=== PATIENT | female | born 1945 | race Caucasian/White ===

== ENCOUNTER 2016-10-14 07:57 | Inpatient (IN) | payer MEDICARE, OTHER ==
[~2016-10-14] VITALS: Ht 157.5 cm; Wt 72.0 kg
[2016-10-14] VITALS (12 sets, daily range): BP systolic 112–196; BP diastolic 56–88; PULSE 52–68; RESP 16–24; TEMP 97.5–98; O2SAT 96–99
[2016-10-14] MEDS ORDERED: CHLO4TAB PO (08:24)
[2016-10-14] MEDS ORDERED: FLAX1000 PO (08:24)
[2016-10-14] MEDS ORDERED: SOYCAP PO (08:24)
[2016-10-14] MEDS ORDERED: CHOL5000 PO (08:24)
[2016-10-14] MEDS ORDERED: ASPI81CH37 PO (08:24)
[2016-10-14] MEDS ORDERED: BLAC540C PO (08:24)
[2016-10-14] MEDS ORDERED: CO Q100C9 PO (08:24)
[2016-10-14] MEDS ORDERED: BIOT10TA PO (08:24)
[2016-10-14] MEDS ORDERED: FISH1200 PO (08:24)
[2016-10-14] MEDS ORDERED: GLUC1TAB16 PO (08:24)
[2016-10-14] MEDS ORDERED: IBUP400T20 PO (08:25)
[2016-10-14] MEDS: NITROGLYCERIN 0.4 MG SL 25 TABS/BTL SL SCH ×2 (08:29→08:45)
[2016-10-14] MEDS ORDERED: ASPIRIN 325 MG TAB PO ONE (08:30)
[2016-10-14 08:34] LABS: AUTOMATED NEUTROPHIL # 4.3 TH/MM3 (1.8-7.7); BASOPHIL # 0.1 TH/MM3 (0-0.2); EOSINOPHIL # 0.1 TH/MM3 (0-0.4); EOSINOPHIL % 1.5 % (0.0-4.0); HEMATOCRIT 43.6 % (35.0-46.0); HEMO FLAGS DIFF FINAL; LYMPH % 26.6 % (9.0-44.0); LYMPHOCYTE # 1.8 TH/MM3 (1.0-4.8); MEAN CELL VOLUME 95.4 FL (80.0-100.0); MEAN CORPUSCULAR HEMOGLOBIN 31.3 PG (27.0-34.0); MEAN CORPUSCULAR HGB CONC 32.8 % (32.0-36.0); MONO % 5.9 % (0.0-8.0); PLATELET COUNT 248 TH/MM3 (150-450); RED BLOOD COUNT 4.58 MIL/MM3 (4.00-5.30); RED CELL DISTRIBUTION WIDTH 12.9 % (11.6-17.2); WHITE BLOOD COUNT 6.6 TH/MM3 (4.0-11.0)
[2016-10-14 08:47] LABS: APTT (PATIENT) 23.6 SEC (24.3-30.1); INTERNATIONAL NORMALIZED RATIO 0.9 RATIO; PROTHROMBIN TIME - PATIENT 10.2 SEC (9.8-11.6)
[2016-10-14 08:51] LABS: ANION GAP 8 MEQ/L (5-15); AST (GOT) 22 U/L (15-37); BICARBONATE 27.2 MEQ/L (21.0-32.0); BLOOD UREA NITROGEN 14 MG/DL (7-18); CHLORIDE 104 MEQ/L (98-107); GLOMERULAR FILTRATION RATE 92 ML/MIN (>89); MAGNESIUM 1.8 MG/DL (1.5-2.5); POTASSIUM 3.9 MEQ/L (3.5-5.1); SODIUM (NA) 139 MEQ/L (136-145)
[2016-10-14 08:52] LABS: ALT (GPT) 27 U/L (10-53)
[2016-10-14 08:56] LABS: ALKALINE PHOSPHATASE 42 U/L (45-117); CREATINE KINASE 146 U/L (26-192); TOTAL BILIRUBIN ADULT 0.5 MG/DL (0.2-1.0)
--- NOTE | 2016-10-14 09:01 | PD ---
HPI Chief Complaint: Chest Pain Time Seen by Provider: 08:20 Travel History International Travel<30 days: No Contact w/Intl Traveler<30days: No Traveled to known affect area: No History of Present Illness HPI 70-year-old female states that in September she had chest pain for a couple of days. She went to her primary care physician and states she had an abnormal EKG. They referred her to Dr. Swanson for first evaluation but she has not been able to get in yet. She denies any routine hard testing in the past. She denies taking any aspirin yet today. She states that her chest pain started at 7 AM this morning. It feels like a pressure in the center and indigestion-like. She states she has not had any pain between her episode and September and now. She states no specific modifying factors. Besides the episode in September she denies prior history of this. Severity is moderate. She denies any other concurrent complaints. PFSH Past Medical History Respiratory: Yes Influenza Vaccination: Yes ?: Not Tubal Ligation: Yes Past Surgical History Other Surgery: Yes (DEVIATED SEPTUM / RT ROTATOR CUFF) Social History Alcohol Use: Yes (RARELY) Tobacco Use: No Substance Use: No Allergies-Medications (Allergen,Severity, Reaction): Coded Allergies: Sulfa (Verified Allergy, Unknown, 10/14/16) Uncoded Allergies: NICKEL (Allergy, Unknown, 10/14/16) Reported Meds & Prescriptions Reported Meds & Active Scripts Active Reported Ibuprofen 400 Mg Tab 400 Mg PO BID Vitamin D3 (Cholecalciferol) 5,000 Unit Cap 5,000 Units PO HS Soy Isoflavones (Soy Isoflavone) 100 Mg Cap 80 Mg PO DAILY Glucosamine Sulfate 1,000 Mg Tab 1,000 Mg PO BID Flaxseed Oil (Flaxseed (Linseed)) 1,000 Mg Cap 1,200 Mg PO HS Fish Oil 1200 mg (Taylor-3 Fatty Acids) 1 Cap Cap 1,200 Mg PO BID Co Q 10 (Coenzyme Q10 (Ubidecarenone)) 100 Mg Cap 200 Mg PO HS Chlortabs (Chlorpheniramine Maleate) 4 Mg Tablet 2 Mg PO DAILY Black Cohosh (Black Cohosh Extract) 40 Mg Cap 80 Mg PO DAILY Biotin 10 Mg Tab 10 Mg PO HS Aspirin Low Dose (Aspirin) 81 Mg Chew 81 Mg PO HS Review of Systems Except as stated in HPI: all other systems reviewed are Neg Physical Exam Narrative GENERAL: Well-nourished, well-developed patient. SKIN: Warm and dry. HEAD: Normocephalic and atraumatic. EYES: No injection or drainage. ENT: No nasal drainage noted. NECK: Supple, trachea midline. CARDIOVASCULAR: Regular rate and rhythm RESPIRATORY: Breath sounds equal bilaterally. No accessory muscle use. GASTROINTESTINAL: Abdomen soft, non-tender, nondistended. EXTREMITIES: No edema. NEUROLOGICAL: Awake and alert. Motor and sensory grossly within normal limits. Normal speech. Data Data Last Documented VS Vital Signs Date Time Temp Pulse Resp B/P Pulse Ox O2 Delivery O2 Flow Rate FiO2 10/14/16 09:59 53 18 146/66 99 Room Air 10/14/16 08:00 97.9 Orders Electrocardiogram (10/14/16 08:06) Ckmb (Isoenzyme) Profile (10/14/16 08:06) Complete Blood Count With Diff (10/14/16 08:06) Comprehensive Metabolic Panel (10/14/16 08:06) Magnesium (Mg) (10/14/16 08:06) Prothrombin Time / Inr (Pt) (10/14/16 08:06) Act Partial Throm Time (Ptt) (10/14/16 08:06) Troponin I (10/14/16 08:06) Chest, Single Ap (10/14/16 08:06) Ecg Monitoring (10/14/16 08:06) Bilateral Bp Monitoring (10/14/16 08:06) Iv Access Insert/Monitor (10/14/16 08:06) Oximetry (10/14/16 08:06) Aspirin (Aspirin) (10/14/16 08:30) Nitroglycerin Sl (Nitrostat Sl) (10/14/16 08:30) CKMB (10/14/16 08:15) CKMB% (10/14/16 08:15) D-Dimer (10/14/16 09:01) Morphine Inj (Morphine Inj) (10/14/16 09:45) Ondansetron Inj (Zofran Inj) (10/14/16 09:45) Admit Order (Ed Use Only) (10/14/16 10:25) Labs Laboratory Tests Test 10/14/16 08:15 White Blood Count 6.6 TH/MM3 Red Blood Count 4.58 MIL/MM3 Hemoglobin 14.3 GM/DL Hematocrit 43.6 % Mean Corpuscular Volume 95.4 FL Mean Corpuscular Hemoglobin 31.3 PG Mean Corpuscular Hemoglobin 32.8 % Concent Red Cell Distribution Width 12.9 % Platelet Count 248 TH/MM3 Mean Platelet Volume 7.5 FL Neutrophils (%) (Auto) 65.0 % Lymphocytes (%) (Auto) 26.6 % Monocytes (%) (Auto) 5.9 % Eosinophils (%) (Auto) 1.5 % Basophils (%) (Auto) 1.0 % Neutrophils # (Auto) 4.3 TH/MM3 Lymphocytes # (Auto) 1.8 TH/MM3 Monocytes # (Auto) 0.4 TH/MM3 Eosinophils # (Auto) 0.1 TH/MM3 Basophils # (Auto) 0.1 TH/MM3 CBC Comment DIFF FINAL Differential Comment Prothrombin Time 10.2 SEC Prothromb Time International 0.9 RATIO Ratio Activated Partial 23.6 SEC Thromboplast Time D-Dimer Quantitative (PE/DVT) 0.48 MG/L FEU Sodium Level 139 MEQ/L Potassium Level 3.9 MEQ/L Chloride Level 104 MEQ/L Carbon Dioxide Level 27.2 MEQ/L Anion Gap 8 MEQ/L Blood Urea Nitrogen 14 MG/DL Creatinine 0.64 MG/DL Estimat Glomerular Filtration 92 ML/MIN Rate Random Glucose 113 MG/DL Calcium Level 9.9 MG/DL Magnesium Level 1.8 MG/DL Total Bilirubin 0.5 MG/DL Aspartate Amino Transf 22 U/L (AST/SGOT) Alanine Aminotransferase 27 U/L (ALT/SGPT) Alkaline Phosphatase 42 U/L Total Creatine Kinase 146 U/L Creatine Kinase MB 4.5 NG/ML Troponin I 0.04 NG/ML Total Protein 6.9 GM/DL Albumin 3.7 GM/DL [facility] Medical Decision Making Medical Screen Exam Complete: Yes Emergency Medical Condition: Yes Medical Record Reviewed: Yes (past history confirmed) Interpretation(s) EKG is normal sinus rhythm at 60 with right bundle branch block, no STEMI criteria CBC & BMP Diagram 10/14/16 08:15 Last 24 hours Impressions Chest X-Ray 10/14/16 0806 Signed Impressions: Service Date/Time: Friday, October 14, 2016 08:44 - CONCLUSION: Normal examination. Moris Orourke MD Differential Diagnosis HI, musculoskeletal, pneumothorax, gastritis Narrative Course Will check blood work, chest x-ray and dose with aspirin and nitroglycerin and reevaluate ed workup with mild ckmb elevation, will discuss with cardiology and dose with morphine for further pain control pain about the same, agrees to admit Physician Communication Physician Communication dr polanco states to place in [facility] Diagnosis Primary Impression: Chest pain Qualified Code: R07.9 - Chest pain, unspecified type Saira Garcia MD Oct 14, 2016 09:01
--- NOTE | 2016-10-14 09:05 | RADRPT ---
EXAM DATE/TIME: 10/14/2016 08:44 [facility] COMPARISON: No previous studies available for comparison. INDICATIONS : Chest pain. MEDICAL HISTORY : None. SURGICAL HISTORY : None. ENCOUNTER: Initial ACUITY: 1 day PAIN SCORE: 10/10 LOCATION: middle chest. FINDINGS: A single view of the chest demonstrates the lungs to be symmetrically aerated without evidence of mas s, infiltrate or effusion. The cardiomediastinal contours are unremarkable. Osseous structures are intact. CONCLUSION: Normal examination. Moris Orourke MD on October 14, 2016 at 9:03 Board Certified Radiologist. This report was verified electronically.
[2016-10-14 09:08] LABS: CKMB 4.5 NG/ML (0.5-3.6)
[2016-10-14] MEDS ORDERED: MORPHINE SULFATE 8 MG/ML INJ IV PUSH ONE (09:45)
[2016-10-14] MEDS ORDERED: ONDANSETRON HCL 4 MG/2 ML VIAL IV PUSH ONE (09:45)
--- NOTE | 2016-10-14 11:45 | HHI.HP ---
HPI Primary Care Physician Mckayla Herman DO Past Family Social History Allergies: Coded Allergies: Sulfa (Verified Allergy, Unknown, 10/14/16) Uncoded Allergies: NICKEL (Allergy, Unknown, 10/14/16) Reported Medications Reported Meds & Active Scripts Active Reported Ibuprofen 400 Mg Tab 400 Mg PO BID Vitamin D3 (Cholecalciferol) 5,000 Unit Cap 5,000 Units PO HS Soy Isoflavones (Soy Isoflavone) 100 Mg Cap 80 Mg PO DAILY Glucosamine Sulfate 1,000 Mg Tab 1,000 Mg PO BID Flaxseed Oil (Flaxseed (Linseed)) 1,000 Mg Cap 1,200 Mg PO HS Fish Oil 1200 mg (Howell-3 Fatty Acids) 1 Cap Cap 1,200 Mg PO BID Co Q 10 (Coenzyme Q10 (Ubidecarenone)) 100 Mg Cap 200 Mg PO HS Chlortabs (Chlorpheniramine Maleate) 4 Mg Tablet 2 Mg PO DAILY Black Cohosh (Black Cohosh Extract) 40 Mg Cap 80 Mg PO DAILY Biotin 10 Mg Tab 10 Mg PO HS Aspirin Low Dose (Aspirin) 81 Mg Chew 81 Mg PO HS Physical Exam Vital Signs Vital Signs Date Time Temp Pulse Resp B/P Pulse Ox O2 Delivery O2 Flow Rate FiO2 10/14/16 09:59 53 18 146/66 99 Room Air 10/14/16 09:30 62 20 145/65 99 10/14/16 08:43 61 16 148/70 98 Room Air 10/14/16 08:18 68 24 196/88 99 Room Air 10/14/16 08:00 97.9 68 17 171/82 96 Laboratory Laboratory Tests Test 10/14/16 08:15 White Blood Count 6.6 Red Blood Count 4.58 Hemoglobin 14.3 Hematocrit 43.6 Mean Corpuscular Volume 95.4 Mean Corpuscular Hemoglobin 31.3 Mean Corpuscular Hemoglobin 32.8 Concent Red Cell Distribution Width 12.9 Platelet Count 248 Mean Platelet Volume 7.5 Neutrophils (%) (Auto) 65.0 Lymphocytes (%) (Auto) 26.6 Monocytes (%) (Auto) 5.9 Eosinophils (%) (Auto) 1.5 Basophils (%) (Auto) 1.0 Neutrophils # (Auto) 4.3 Lymphocytes # (Auto) 1.8 Monocytes # (Auto) 0.4 Eosinophils # (Auto) 0.1 Basophils # (Auto) 0.1 CBC Comment DIFF FINAL Differential Comment Prothrombin Time 10.2 Prothromb Time International 0.9 Ratio Activated Partial 23.6 Thromboplast Time D-Dimer Quantitative (PE/DVT) 0.48 Sodium Level 139 Potassium Level 3.9 Chloride Level 104 Carbon Dioxide Level 27.2 Anion Gap 8 Blood Urea Nitrogen 14 Creatinine 0.64 Estimat Glomerular Filtration 92 Rate Random Glucose 113 Calcium Level 9.9 Magnesium Level 1.8 Total Bilirubin 0.5 Aspartate Amino Transf 22 (AST/SGOT) Alanine Aminotransferase 27 (ALT/SGPT) Alkaline Phosphatase 42 Total Creatine Kinase 146 Creatine Kinase MB 4.5 Troponin I 0.04 Total Protein 6.9 Albumin 3.7 Result Diagram: 10/14/1681410/14/1615 Assessment and Plan Assessment and Plan PT SEEN WITH PA AND EXAMINED TOGETHER S: ATYPICAL CP, PROTRACTED NON RADIATING NOT ASSOCIATED WITH EXERTION OR REL BY REST HTN O: NECK BRUIT R RADIATING FROM STERNUM CHEST VERY TENDER UPPER CC JUNCTIONS CLEAR TO AP CV RSR WITH 2/6 S EJ M NO GR ABD NO MASSES NT LAB MINIMAL ELEVATION OF TROPONIN A: ATYPICAL CP BUT NEED TO RO WITH PROTOCOL FOLLOW TROPONIN P: PER PROTOCOL PROBABLY NUC STRESS OP FU WITH HER PCP WOULD REC OP ECTO Reagan Lees MD Oct 14, 2016 11:45
--- NOTE | 2016-10-14 11:50 | HHI.HP ---
[facility] Primary Care Physician Mckayla Herman DO Chief Complaint Chest pain History of Present Illness This is a 70-year-old female that presents to the ED via private vehicle with complaint of a central chest discomfort. She describes as someone squeezing a fast inside of her chest. This morning it woke her up about 7:00. She tried 3 times but did not change the symptoms. She was given 2 subluminal nitroglycerin in the ED which did not improve her symptoms. She is also given morphine which has not improved her symptoms. Currently discomfort is about a 7 out of 10. She had a similar episode on September 21, , and . It was constant. She thought was related to heartburn. She tried multiple over-the- counter antacids which did not help. She saw her primary care physician who performed an EKG and told her that it was abnormal and was referred her to a [facility]. She has not received a cardiology appointment yet. Denies associated shortness of breath, nausea, or diaphoresis. She found nothing to worsen the symptoms when she has had them. Denies recent illnesses. Denies fevers or chills. Cannot recall any recent stress testing. Review of Systems General: Patient denies fevers, chills recent, and recent travel HEENT: Patient denies headache, sore throat, difficulty swallowing. Cardiovascular: Has the chest discomfort as mentioned above. Denies sensation of heart beating rapidly or irregularly. No syncope. Denies diaphoresis. Respiratory: Denies shortness of breath or inspirational chest discomfort. Denies coughing wheezing or hemoptysis. GI: Patient denies nausea, vomiting, diarrhea, abdominal pain, bloody stools. Musculoskeletal: Patient denies joint pain or edema. Denies calf pain or edema. Neurovascular: Patient denies numbness, tingling, weakness in extremities. Denies headache. Endocrine: Denies polyuria and polydipsia. Hematologic: Denies easy bruising. Skin: Denies rash or itching. Past Family Social History Allergies: Coded Allergies: Sulfa (Verified Allergy, Unknown, 10/14/16) Uncoded Allergies: NICKEL (Allergy, Unknown, 10/14/16) Past Medical History Hyperlipidemia and she states that she takes Crestor for that. Denies hypertension, diabetes, and CAD. She has chronic back pain and follows a chiropractor for that. Past Surgical History Tubal ligation, deviated septum, right rotator cuff repair. Reported Medications Reported Meds & Active Scripts Active Reported Ibuprofen 400 Mg Tab 400 Mg PO BID Vitamin D3 (Cholecalciferol) 5,000 Unit Cap 5,000 Units PO HS Soy Isoflavones (Soy Isoflavone) 100 Mg Cap 80 Mg PO DAILY Glucosamine Sulfate 1,000 Mg Tab 1,000 Mg PO BID Flaxseed Oil (Flaxseed (Linseed)) 1,000 Mg Cap 1,200 Mg PO HS Fish Oil 1200 mg (Woodruff-3 Fatty Acids) 1 Cap Cap 1,200 Mg PO BID Co Q 10 (Coenzyme Q10 (Ubidecarenone)) 100 Mg Cap 200 Mg PO HS Chlortabs (Chlorpheniramine Maleate) 4 Mg Tablet 2 Mg PO DAILY Black Cohosh (Black Cohosh Extract) 40 Mg Cap 80 Mg PO DAILY Biotin 10 Mg Tab 10 Mg PO HS Aspirin Low Dose (Aspirin) 81 Mg Chew 81 Mg PO HS Family History Denies family history of CAD. Social History Patient quit smoking in 1988. Rarely has alcohol. Denies illicit drugs. Physical Exam Vital Signs Vital Signs Date Time Temp Pulse Resp B/P Pulse Ox O2 Delivery O2 Flow Rate FiO2 10/14/16 09:59 53 18 146/66 99 Room Air 10/14/16 09:30 62 20 145/65 99 10/14/16 08:43 61 16 148/70 98 Room Air 10/14/16 08:18 68 24 196/88 99 Room Air 10/14/16 08:00 97.9 68 17 171/82 96 Physical Exam GENERAL: This is a well-nourished, well-developed patient, in no apparent distress. Patient speaks in clear complete sentences. Patient is pleasant. HEENT: Head is atraumatic and normocephalic. Neck is supple without lymphadenopathy and trachea is midline. No JVD or carotid bruits. CARDIOVASCULAR: Grade 3 systolic murmur heard left sternal border and right sternal border. It does not radiate to the neck. Regular rate and rhythm without gallops or rubs. RESPIRATORY: Clear to auscultation. Breath sounds equal bilaterally. No wheezes , rales, or rhonchi. Chest wall is nontender. No use of accessory muscles. GASTROINTESTINAL: Abdomen is nontender, nondistended. Abdomen soft. No obvious pulsatile mass or bruit. No CVA tenderness. Strong femoral pulses bilaterally. Normal bowel sounds in all quadrants. MUSCULOSKELETAL: Patient is moving upper and lower extremities freely. No calf tenderness or edema, no Homans sign. Strong pulses in upper and lower extremities. NEUROLOGICAL: Patient is alert and oriented. Cranial nerves 2-12 are grossly intact. No focal deficits and speech is clear. SKIN: No rash and turgor is normal. Laboratory Laboratory Tests Test 10/14/16 08:15 White Blood Count 6.6 Red Blood Count 4.58 Hemoglobin 14.3 Hematocrit 43.6 Mean Corpuscular Volume 95.4 Mean Corpuscular Hemoglobin 31.3 Mean Corpuscular Hemoglobin 32.8 Concent Red Cell Distribution Width 12.9 Platelet Count 248 Mean Platelet Volume 7.5 Neutrophils (%) (Auto) 65.0 Lymphocytes (%) (Auto) 26.6 Monocytes (%) (Auto) 5.9 Eosinophils (%) (Auto) 1.5 Basophils (%) (Auto) 1.0 Neutrophils # (Auto) 4.3 Lymphocytes # (Auto) 1.8 Monocytes # (Auto) 0.4 Eosinophils # (Auto) 0.1 Basophils # (Auto) 0.1 CBC Comment DIFF FINAL Differential Comment Prothrombin Time 10.2 Prothromb Time International 0.9 Ratio Activated Partial 23.6 Thromboplast Time D-Dimer Quantitative (PE/DVT) 0.48 Sodium Level 139 Potassium Level 3.9 Chloride Level 104 Carbon Dioxide Level 27.2 Anion Gap 8 Blood Urea Nitrogen 14 Creatinine 0.64 Estimat Glomerular Filtration 92 Rate Random Glucose 113 Calcium Level 9.9 Magnesium Level 1.8 Total Bilirubin 0.5 Aspartate Amino Transf 22 (AST/SGOT) Alanine Aminotransferase 27 (ALT/SGPT) Alkaline Phosphatase 42 Total Creatine Kinase 146 Creatine Kinase MB 4.5 Troponin I 0.04 Total Protein 6.9 Albumin 3.7 Result Diagram: 10/14/1681410/14/16814 Imaging Last 24 hours Impressions Chest X-Ray 10/14/16805 Signed Impressions: Service Date/Time: Friday, October 14, 2016 08:44 - CONCLUSION: Normal examination. Moris Orourke MD Course EKGs have sinus rhythm to sinus bradycardia with right bundle branch block. Assessment and Plan Assessment and Plan * Chest pain: Patient will continue to have serial cardiac enzymes and EKGs for ruling out purposes. She has been seen by Dr. Lees of cardiology in the chest pain center. She had caffeinated beverages morning cannot be stress tested today. She will have a Lexiscan in the morning if she does rule out. She'll be discharged home if the stress test was nonischemic. Patient does have a murmur and will need to have outpatient follow-up for an echo. * Hyperlipidemia: Patient is to continue her current medication. Patient is stable at this time. She is agreeable to this plan. Kar Easton Oct 14, 2016 11:50
[2016-10-14] MEDS ORDERED: SODIUM CHLORIDE 0.9% FLUSH 5 ML FLUSH IVF PRN (12:00)
[2016-10-14] MEDS ORDERED: LIDOCAINE VISCOUS 2% SOLN 15 ML UDC PO ONE (12:00)
[2016-10-14] MEDS ORDERED: ONDANSETRON HCL 4 MG/2 ML VIAL IV PRN (12:00)
[2016-10-14] MEDS ORDERED: ALUMINUM/MAGNESIUM/SIMETH 30 ML CUP PO ONE (12:00)
[2016-10-14] MEDS ORDERED: ALPRAZolam 0.25 MG TAB PO PRN (12:00)
[2016-10-14] MEDS ORDERED: ACETAMINOPHEN 500 MG CPLT PO PRN (12:00)
--- NOTE | 2016-10-14 12:24 | EKG ---
Date Performed: 10/14/2016 Time Performed: 08:11:01 PTAGE: 70 years EKG: Sinus rhythm RIGHT BUNDLE BRANCH BLOCK ABNORMAL ECG NO PREVIOUS TRACING DOCTOR: Reagan Lees Interpretating Date/Time 10/14/2016 12:22:44
[2016-10-14] MEDS ORDERED: ATROPINE/SCOPOLAM/HYOSCYAM/PB ELIXIR 10 ML CUP PO ONE (13:00)
[2016-10-14] MEDS: PANTOPRAZOLE SOD 40 MG DELAYED RELEASE TAB PO SCH (13:21)
[2016-10-14] MEDS ORDERED: ROSU5 PO (13:31)
[2016-10-14 14:44] LABS: CREATINE KINASE 109 U/L (26-192)
[2016-10-14] MEDS ORDERED: cloNIDine HCL 0.1 MG TAB PO PRN (14:45)
[2016-10-14 15:03] LABS: CKMB 3.7 NG/ML (0.5-3.6)
[2016-10-14] MEDS: ACETAMINOPHEN/HYDROcodone 325 MG/7.5 MG TAB PO PRN (18:55)
[2016-10-14] MEDS: ATORVASTATIN 10 MG TAB PO SCH (20:57)
[2016-10-14] MEDS: SODIUM CHLORIDE 0.9% FLUSH 5 ML FLUSH IVF SCH (20:58)
[2016-10-15] VITALS (17 sets, daily range): BP systolic 115–147; BP diastolic 49–64; PULSE 49–97; RESP 16–18; TEMP 97.5–98.7; O2SAT 95–99
[2016-10-15] MEDS: ASPIRIN 325 MG TAB PO SCH (07:33)
[2016-10-15] MEDS: SODIUM CHLORIDE 0.9% FLUSH 5 ML FLUSH IVF SCH ×2 (07:33→21:00)
[2016-10-15] MEDS: PANTOPRAZOLE SOD 40 MG DELAYED RELEASE TAB PO SCH (07:33)
[2016-10-15] MEDS ORDERED: REGADENOSON INJ 0.4 MG/5 ML SYR ONE (09:43)
--- NOTE | 2016-10-15 11:36 | RADRPT ---
EXAM DATE/TIME: 10/15/2016 09:17 [facility] COMPARISON: No previous studies available for comparison. INDICATIONS : Mid chest pain for one day. Angina. DOSE: 26.6 mCi Tc99m Myoview at stress. 8.7 mCi Tc99m Myoview at rest. 0.4 mg Lexiscan STRESS SYMPTOMS: Nausea. EJECTION FRACTION: 63% MEDICAL HISTORY : Hypercholesterolemia. SURGICAL HISTORY : Tubal ligation. ENCOUNTER: Initial ACUITY: 1 day PAIN SCALE: 7/10 LOCATION: Midsternal chest TECHNIQUE: The patient underwent pharmacologic stress with infusion of prescribed dose. Continuous ECG tracing was monitored during stress. Gated SPECT imaging was performed after stress and conventional SPECT i maging was performed at rest. The examination was performed on a SPECT/CT scanner, both attenuation and non-corrected datasets were reviewed. FINDINGS: DISTRIBUTION: The maximum perfused segment at stress is in the anterior septal wall. PERFUSION STUDY: On the stress images there is decreased perfusion down anterior amount in the apex with what appears to be much better perfusion at rest suggesting ischemia in the LAD distribution. GATED STUDY: There is intact wall motion and thickening without hypokinetic or dyskinetic segments. CONCLUSION: There does appear to be much better perfusion at rest and stress in the anterior wall in the LAD dist ribution on at least 4 consecutive images raise possibility of LAD ischemia. RISK CATEGORY: Low (<1% Annual Mortality Rate) Moris Orourke MD on October 15, 2016 at 11:33 Board Certified Radiologist. This report was verified electronically.
--- NOTE | 2016-10-15 12:11 | EKG ---
Date Performed: 10/14/2016 Time Performed: 17:09:24 PTAGE: 70 years EKG: SINUS BRADYCARDIA RIGHT BUNDLE BRANCH BLOCK ABNORMAL ECG PREVIOUS TRACING : 10/14/2016 14.21 DOCTOR: Reagan Lees Interpretating Date/Time 10/15/2016 12:09:31
--- NOTE | 2016-10-15 12:12 | EKG ---
Date Performed: 10/14/2016 Time Performed: 14:21:20 PTAGE: 70 years EKG: SINUS BRADYCARDIA RIGHT BUNDLE BRANCH BLOCK ABNORMAL ECG PREVIOUS TRACING : 10/14/2016 11.04 DOCTOR: Reagan Lees Interpretating Date/Time 10/15/2016 12:09:52
--- NOTE | 2016-10-15 12:13 | EKG ---
Date Performed: 10/14/2016 Time Performed: 11:04:38 PTAGE: 70 years EKG: SINUS BRADYCARDIA RIGHT BUNDLE BRANCH BLOCK ABNORMAL ECG NO PREVIOUS TRACING DOCTOR: Reagan Lees Interpretating Date/Time 10/15/2016 12:10:20
--- NOTE | 2016-10-15 12:18 | TR ---
Date Performed: 10/15/2016 Time Performed: 09:53:42 DOCTOR: Reagan Lees DRUG LIST: CLINICAL HISTORY: ANGINA REASON FOR TEST: Angina REASON FOR ENDING: OBSERVATION: CONCLUSION: Lexiscan stress test was performed under standard four minute protocol. Radionuclide was injected one minute prior to ending the test. Resting ECG demonstrated RBBB. However no electro cardiographic abormalities were present to suggest ischemia. Nuclear imaging and interpretation are p ending. COMMENTS: Nuc scanning is reported as suspicious for ischemia.
--- NOTE | 2016-10-15 13:30 | HHI.PR ---
Subjective Remarks Follow up for chest pain. The patient was transferred from [facility] to hospitalists for abnormal nuclear stress test. Briefly, the patient came into the hospital with complaints of substernal chest pain without radiation, described as squeezing pains. She thought the pain was related to heartburn therefore took antacids which did not relieve the pain. Yesterday morning the pain awoke her from her sleep at 7am prompting her to come to the hospital. Since being here, the patient's chest pain has subsided slightly however still has constant chest discomfort. Cardiology consult has been placed for likely cardiac catheterization. Of note, patient was at her PCP's office on 10/12, was noted to have an "abnormal" EKG (no previous EKG to compare) therefore Dr. Herman referred her to software engineer kernel Dr. Swanson with [facility] however the patient has not yet established an appointment. Objective Vitals Vital Signs Date Time Temp Pulse Resp B/P Pulse Ox O2 Delivery O2 Flow Rate FiO2 10/15/16 11:43 97.8 60 18 119/64 97 10/15/16 08:03 97.9 60 16 133/63 99 10/15/16 08:00 60 10/15/16 07:19 99 21 10/15/16 05:22 97.8 60 18 115/59 97 10/15/16 04:08 54 10/15/16 00:02 97.5 52 16 117/56 98 10/15/16 00:00 54 10/14/16 20:39 97.8 54 17 124/56 96 10/14/16 20:00 60 10/14/16 19:55 97 10/14/16 16:13 59 10/14/16 15:09 98.0 55 16 112/56 96 10/14/16 14:00 60 Result Diagram: 10/14/16 0815 10/14/16 0815 Imaging Last Impressions Myocardial Perfusion Scan Nuc Med 10/15/16 0000 Signed Impressions: Service Date/Time: Saturday, October 15, 2016 09:17 - CONCLUSION: There does appear to be much better perfusion at rest and stress in the anterior wall in the LAD distribution on at least 4 consecutive images raise possibility of LAD ischemia. RISK CATEGORY: Low (<1%% Annual Mortality Rate) Moris Orourke MD Chest X-Ray 10/14/16805 Signed Impressions: Service Date/Time: Friday, October 14, 2016 08:44 - CONCLUSION: Normal examination. Moris Orourke MD Objective Remarks GENERAL: Well-nourished, well-developed pleasant female patient in NAD. SKIN: Warm and dry. No rash. HEENT: Normocephalic. Atraumatic.Pupils equal and round. Mucous membranes pink and moist. NECK: Supple. Trachea midline. CARDIOVASCULAR: Regular rate and rhythm. S1, S2 noted. No murmur appreciated. RESPIRATORY: No accessory muscle use. Clear to auscultation. Breath sounds equal bilaterally. GASTROINTESTINAL: Abdomen soft, non-tender, nondistended. Normoactive bowel sounds x4. MUSCULOSKELETAL: No obvious deformities. Extremities without clubbing, cyanosis , or edema. NEUROLOGICAL: Awake and alert. No obvious cranial nerve deficits. Motor grossly within normal limits. Normal speech. PSYCHIATRIC: Appropriate mood and affect; insight and judgment normal. Medications and IVs Current Medications Medications (Trade) Dose Ordered Sig/Leonardo Route Start Time Stop Time Status Last Admin (Protonix) 40 mg DAILY PO 10/14/16 12:00 10/15/16 07:33 (NS Flush) 2 ml UNSCH PRN IVF 10/14/16 12:00 (NS Flush) 2 ml BID IVF 10/14/16 21:00 10/15/16 07:33 (Tylenol) 500 mg Q4H PRN PO 10/14/16 12:00 (Stephen 7.5-325 Mg) 1 tab Q4H PRN PO 10/14/16 12:00 10/14/16 18:55 (Zofran Inj) 4 mg Q6H PRN IV 10/14/16 12:00 (Xanax) 0.25 mg Q8H PRN PO 10/14/16 12:00 (Lipitor) 10 mg HS PO 10/14/16 21:00 10/14/16 20:57 (Aspirin) 325 mg DAILY PO 10/15/16 09:00 10/15/16 07:33 (Catapres) 0.1 mg Q4H PRN PO 10/14/16 14:45 (Lopressor) 12.5 mg Q12HR PO 10/15/16 15:00 10/15/16 15:46 (Imdur) 30 mg DAILY@07 PO 10/16/16 07:00 (Pill Splitter) 1 ea UNSCH PRN OTHER 10/15/16 15:15 A/P Problem List: (1) Chest pain ICD Code: R07.9 Status: Acute Assessment and Plan 70-year-old female with no significant past medical history presents with chest pain Chest Pain: Initially admitted to [facility], ACS ruled out with negative serial cardiac enzymes x4 and EKG without acute ischemic changes, does show RBBB. Nuclear stress test abnormal, showed concern for possible LAD ischemic. Patient transferred to hospitalist. -Cardiology consulted, plans for heart catheterization tomorrow 10/16, NPO after midnight -Continue aspirin and statin -Started on low dose BB with metoprolol 12.5mg bid however caution with bradycardia -Also started on Imdur 30mg daily -check lipid panel and HgbA1c -monitor on telemetry Hypertension: no hx of hypertension, not on meds, and patient reports she checks her BP at home with systolic in the 120s consistently; possibly BP elevation secondary to pain vs whitecoat hypertension -started on metoprolol for now -monitor BP, add antihypertensives as needed -much better controlled torday DVT Prophylaxis: teds/SCDs Problem Qualifiers (1) Chest pain: Qualified Code: R07.9 - Chest pain, unspecified type Steff Alexander PA-C Oct 15, 2016 1:30 pm
[2016-10-15] MEDS ORDERED: PILL SPLITTER OTHER PRN (15:15)
[2016-10-15] MEDS: METOPROLOL TARTRATE 25 MG TAB PO SCH ×2 (15:46→21:00)
--- NOTE | 2016-10-15 16:09 | MB ---
cc: MARCI BRUCE MD DATE OF CONSULTATION 10/15/2016 REASON FOR CONSULTATION Chest pain with abnormal stress test. HISTORY OF PRESENT ILLNESS The patient is a 70-year-old woman with no prior coronary disease or cardiac history who presented with several episodes of chest discomfort. After the first episode she went to her primary care physician and at that time she was told her EKG was abnormal. She was supposed to have an outpatient appointment with Dr. Swanson but before then developed more chest discomfort and thus presented to the emergency department. She initially ruled out for ME and then had a nuclear stress test which was somewhat abnormal and thus I was consulted. She has had intermittent chest discomfort while she has been here, not particularly relieved by either nitrates or opiates. She describes very mild chest discomfort currently though she says significantly improved from her admission chest pain. No shortness breath, lightheadedness, dizziness, syncope. PAST MEDICAL HISTORY Hyperlipidemia. CURRENT MEDICATIONS Lipitor 10 mg q.h.s. ALLERGIES NICKEL, SULFA. PHYSICAL EXAMINATION VITAL SIGNS: Afebrile, pulse 60, respiratory rate 18, blood pressure 119/64, sating 97% on 2 liters. GENERAL: Pleasant, well-appearing woman in no distress. NECK: No JVD. LUNGS: Clear to auscultation bilaterally. CARDIOVASCULAR: Heart regular rate and rhythm. No murmurs appreciated. ABDOMEN: Benign. EXTREMITIES: No edema. LABORATORY DATA Cardiac enzymes are negative x3. Sodium 139, potassium 3.9, chloride 104, bicarb 27.2, BUN 14, creatinine 0.64, glucose 113. INR is 0.9. White count 6.6, hematocrit 43.6, platelets 248. EKG shows sinus bradycardia at 51 with right bundle-branch block. IMPRESSION Chest pain. The patient's chest discomfort is not particularly typical but she has now had several episodes including ongoing chest pain here. I will add metoprolol and Imdur for antianginal medications. Given her abnormal stress test, I think a cardiac catheterization is reasonable and this is what the patient wishes to do. The risks and benefits of the procedure were explained to the patient and I will ask my colleague to perform this tomorrow. Further recommendations will be based on her heart catheterization. Thank you again for the opportunity to participate in this patient's care. MD BERNARD Perez /2:56 PM /4:02 PM
[2016-10-15] MEDS: ATORVASTATIN 10 MG TAB PO SCH (22:42)
[2016-10-16] VITALS (27 sets, daily range): BP systolic 112–147; BP diastolic 49–83; PULSE 49–68; RESP 16–18; TEMP 97.9–98.4; O2SAT 96–98
[2016-10-16] MEDS: ISOSORBIDE MONONITRATE 30 MG TAB PO SCH (06:50)
[2016-10-16 07:03] LABS: BICARBONATE 29.6 MEQ/L (21.0-32.0); POTASSIUM 4.1 MEQ/L (3.5-5.1)
[2016-10-16 07:06] LABS: HDL CHOLESTEROL 74.1 MG/DL (40.0-60.0)
[2016-10-16] MEDS: SODIUM CHLORIDE 0.9% FLUSH 5 ML FLUSH IVF SCH ×2 (09:00→21:00)
[2016-10-16] MEDS: PANTOPRAZOLE SOD 40 MG DELAYED RELEASE TAB PO SCH (09:30)
[2016-10-16] MEDS: METOPROLOL TARTRATE 25 MG TAB PO SCH ×2 (09:31→21:24)
[2016-10-16] MEDS: ASPIRIN 325 MG TAB PO SCH (09:31)
--- NOTE | 2016-10-16 10:06 | HHI.PR ---
Subjective Remarks The patient said she had 9 out of 10 chest pain yesterday. She said it was in the center of her chest and seemed to radiate to the right side of her chest. She said no pain medication worked. She went to sleep and woke up and the pain was gone. She was anticipating cardiac catheterization. She says she thought her chest pain was related to GERD. She said she does have chest pain when she takes in a deep breath. Objective Vitals Vital Signs Date Time Temp Pulse Resp B/P Pulse Ox O2 Delivery O2 Flow Rate FiO2 10/16/16 09:56 96 10/16/16 08:00 62 10/16/16 07:00 62 10/16/16 07:00 98.3 62 18 112/66 97 10/16/16 06:00 58 10/16/16 05:00 54 10/16/16 04:00 52 10/16/16 03:59 98.1 54 16 147/63 96 10/16/16 03:00 50 10/16/16 02:00 52 10/16/16 01:00 53 10/16/16 00:05 97.9 51 16 123/83 96 10/16/16 00:00 52 10/15/16 23:00 58 10/15/16 22:58 96 21 10/15/16 22:00 50 10/15/16 21:00 58 10/15/16 20:09 97.9 49 16 125/49 95 10/15/16 20:00 58 10/15/16 19:00 62 10/15/16 17:45 98.4 97 18 147/64 97 10/15/16 15:20 98.7 64 16 122/58 96 10/15/16 11:43 97.8 60 18 119/64 97 I/O 10/15/16 10/15/16 10/15/16 10/16/16 10/16/16 10/16/16 07:00 15:00 23:00 07:00 15:00 23:00 Intake Total 250 ml Output Total 400 ml Balance -150 ml Intake Oral 250 ml Output Urine Total 400 ml # Voids 2 Result Diagram: 10/14/16 0815 10/16/16 0607 Imaging Last Impressions Myocardial Perfusion Scan Nuc Med 10/15/16 0000 Signed Impressions: Service Date/Time: Saturday, October 15, 2016 09:17 - CONCLUSION: There does appear to be much better perfusion at rest and stress in the anterior wall in the LAD distribution on at least 4 consecutive images raise possibility of LAD ischemia. RISK CATEGORY: Low (<1%% Annual Mortality Rate) Moris Orourke MD Chest X-Ray 10/14/16 0806 Signed Impressions: Service Date/Time: Friday, October 14, 2016 08:44 - CONCLUSION: Normal examination. Moris Orourke MD Objective Remarks GENERAL: Well-nourished, well-developed pleasant female patient in NAD. SKIN: Warm and dry. No rash. HEENT: Normocephalic. Atraumatic.Pupils equal and round. Mucous membranes pink and moist. NECK: Supple. Trachea midline. CARDIOVASCULAR: Regular rate and rhythm. S1, S2 noted. Grade 2 murmur appreciated. RESPIRATORY: No accessory muscle use. Clear to auscultation. Breath sounds equal bilaterally. GASTROINTESTINAL: Abdomen soft, non-tender, nondistended. Normoactive bowel sounds x4. MUSCULOSKELETAL: No obvious deformities. Extremities without clubbing, cyanosis , or edema. No reproducible chest pain to palpation. NEUROLOGICAL: Awake and alert. No obvious cranial nerve deficits. Motor grossly within normal limits. Normal speech. PSYCHIATRIC: Appropriate mood and affect; insight and judgment normal. Medications and IVs Current Medications Medications (Trade) Dose Ordered Sig/Leonardo Route Start Time Stop Time Status Last Admin (Protonix) 40 mg DAILY PO 10/14/16 12:00 10/16/16 09:30 (NS Flush) 2 ml UNSCH PRN IVF 10/14/16 12:00 (NS Flush) 2 ml BID IVF 10/14/16 21:00 10/15/16 21:00 (Tylenol) 500 mg Q4H PRN PO 10/14/16 12:00 (Raymond 7.5-325 Mg) 1 tab Q4H PRN PO 10/14/16 12:00 10/14/16 18:55 (Zofran Inj) 4 mg Q6H PRN IV 10/14/16 12:00 (Xanax) 0.25 mg Q8H PRN PO 10/14/16 12:00 (Lipitor) 10 mg HS PO 10/14/16 21:00 10/15/16 22:42 (Aspirin) 325 mg DAILY PO 10/15/16 09:00 10/16/16 09:31 (Catapres) 0.1 mg Q4H PRN PO 10/14/16 14:45 (Lopressor) 12.5 mg Q12HR PO 10/15/16 15:00 10/16/16 09:31 (Imdur) 30 mg DAILY@07 PO 10/16/16 07:00 10/16/16 06:50 (Pill Splitter) 1 ea UNSCH PRN OTHER 10/15/16 15:15 A/P Problem List: (1) Chest pain ICD Code: R07.9 Status: Acute Assessment and Plan Chest pain Initially admitted to [facility], ACS ruled out with negative serial cardiac enzymes x4 and EKG without acute ischemic changes, does show RBBB. Nuclear stress test abnormal, showed concern for possible LAD ischemic. Patient transferred to hospitalist. Cardiology consult appreciated. LDL 93. ? GI component. - catheterization appreciated. - Continue aspirin and statin. - Started on low dose BB with metoprolol 12.5mg bid however caution with bradycardia. - continue Imdur 30mg daily. - check HgbA1c. - monitor on telemetry. - continue PPI. Check a lipase level. Hypertension No hx of hypertension, not on meds, and patient reports she checks her BP at home with systolic in the 120s consistently; possibly BP elevation secondary to pain vs whitecoat hypertension. Well controlled at this time. - started on metoprolol for now. DVT Prophylaxis: teds/SCDs Discharge Planning Awaiting cath Problem Qualifiers (1) Chest pain: Qualified Code: R07.9 - Chest pain, unspecified type Britton Craven DO Oct 16, 2016 10:06
[2016-10-16] MEDS ORDERED: HEPARIN-NS/PF INJ 500 ML ONE (15:34)
[2016-10-16] MEDS ORDERED: NITROGLYCERIN INJ 5 ML ONE (15:35)
[2016-10-16] MEDS ORDERED: VERAPAMIL HCL 5 MG/2 ML VIAL ONE (15:35)
[2016-10-16] MEDS ORDERED: HEPARIN SODIUM - IV 10,000 UNITS/10 ML VIAL ONE (15:35)
[2016-10-16] MEDS ORDERED: MIDAZOLAM HCL 2 MG/2 ML VIAL ONE (15:35)
[2016-10-16] MEDS ORDERED: IOHEXOL 350 MG/ML 50 ML BTL (for Cath Lab) OTHER ONE (15:44)
[2016-10-16 16:25] LABS: HEMOGLOBIN A1a 1.5 %; HEMOGLOBIN A1b 0.8 %; HEMOGLOBIN Ao 84.9 %; HEMOGLOBIN F 1.7 %; HEMOGLOBIN LA1C 1.5 %; HEMOGLOBIN P3 3.5 %
--- NOTE | 2016-10-16 17:05 | CATHPROC ---
[facility] HIS Report Study Information Study Number Admission Scheduled Start Study Start [id number] Oct 14 2016 10:26AM 10/15/2016 Oct 16 2016 3:40PM [place] Service Cardiac Catheterization Admit Source Facility Department Emergency department [facility] - [employer] Physician and Clinical Staff Initial Deyvi Arriaza Throw Out Clerk Merlyn Barbour RN Throw Out Clerk Perla Long BSRN Recorder Varsha Blue,(R) (BS) Recorder Tommy Koo RCIS(BS) Scrub Rajeev Carter RCIS(BS) Procedures Performed Procedure Location (Site) Vessel Name Coronary Angiograms LCA Left Coronary Coronary Angiograms RCA Right Coronary L Heart Cath Wire insertion Radial (right) Radial Art. Equipment Time Leno Sewer Description Size Mfg Part Number Used/Scraped TRANSDUCER, TRUWAVE [id number] 15:58 GLYNN BARBOUR * Used W/DEVONCK *[id number] *[id number] *[id number] WIRE, HYDROSTEER 150CM [id number] 16:22 DAIG/[employer] 150CM Used ANGLED GLIDE *[id number] 15:58 [employer] PACK, CCL CUSTOM * Used *[id number] 15:58 [employer] SUPPORT, ARTERIAL ADULT [id number] Used BAND, RADIAL COMPRESSION TR [id number] 16:51 [employer] MEDICAL 24CM Used SHORT 24 *[id number] 15:58 [employer] WIRE, EXCHANGE 260CM 3MMJ 260CM Used *[id number] 15:58 NAMIC MANIFOLD, 4 PORT * Used *[id number] 15:58 [employer]COMED OMNIPAQUE, 350 MG, 150ML 150ML [id number] Used [id number] 15:58 [employer]ONNE[employer] BLANKET,WARM AIR CCL * Used *[id number] SHEATH, FR6 TRANSRADIAL 15:58 [employer]Star FR 6 [id number] Used SLENDER 10CM Equipment Model, Serial, Lot Number and Expiration Data Description Model Number Serial Number Lot Number Expiration Date WIRE, HYDROSTEER 150CM [id number] 06-07-2019 ANGLED GLIDE History: Current Medications Medication Dosage/Unit Route Frequency Last Date/Time Taken Beta Kenton ASA Statins (any) History: Allergies Allergy Reaction Sulfa NICKEL History: Risk Factors Family History of Hypertension Dyslipidemia Previous NE Previous Heart Failure Premature CAD No Yes Yes No No Prior Valve Prior PCI Prior CABG Surgery No No No Cerebrovascular Peripheral Artery Chronic Lung On Dialysis Diabetes Disease Disease Disease No No No No No History: Symptoms/Diagnosis Selection Items Chest pain History: Stress Tests Stress or Imaging Studies Performed Yes Standard Exercise Stress Test No Stress Echo No Stress Test SPECT Stress Test SPECT Result Stress Test SPECT Ischemia Risk/Extent Yes Positive Low Stress Test CMR No Cardiac CTA Coronary Calcium Score No No History: Other Current Smoker Method Quit Packs a Day Years Used Pack Years No Cigarettes 28 Years Ago 3 35 105 Labs Hgb (g/dl) Hct (%) WBC (l/cumm) Platelets (thousands) 11.60-17.00 35.00-51.00 4.00-11.00 150.00-450.00 14.3 43.6 6.6 248 Glucose (mg/dl) BUN (mg/dl) Creatinine (mg/dl) BUN:Creatinine (1:x) 74.00-106.00 7.00-18.00 0.50-1.30 10.00-20.00 110 18 0.5 36 Na (meq/l) K (meq/l) 136.00-145.00 3.50-5.10 141 4.1 INR (PTT:PT) 0.90-1.10 0.9 Troponin I (ng/ml) CPK-MB (ng/ML) 0.02-0.05 0.50-3.60 0.04 Not Drawn Medication Medication Total Dose (Bolus/Oral) Medication Total Dosage/Unit 1% XYLOCAINE 1 mL FENTANYL 25 mcg RADIAL COCKTAIL 1 units VERSED 0.5 mg Medications (Bolus/Oral) Medication Time Given Dosage/Unit Administered By Reason FENTANYL 10/16/2016 4:17:55 PM 25 mcg Rittenjordy, Perla 25 mcg FENTANYL given in lab by Perla Long BSRN in Left Antecubital via Peripheral IV. VERSED 10/16/2016 4:18:18 PM 0.5 mg Rittenjordy, Perla 0.5 mg VERSED given in lab by Perla Long BSRN in Left Antecubital via Peripheral IV. 1% XYLOCAINE 10/16/2016 4:19:31 PM 1 mL Deyvi Campbell 1 mL 1% XYLOCAINE given in lab by Deyvi Campbell in Right Radial via Subcutaneous. Ntg 200mcg Verapamil 2.5mg Heparin RADIAL COCKTAIL 10/16/2016 4:20:14 PM 1 units Deyvi Campbell 2000U 1 units RADIAL COCKTAIL given in lab by Deyvi Campbell in Right Radial via Radial. Reason: Ntg 200 mcg Verapamil 2.5mg Heparin 2800U. Medication (Drip) Medication Time Given Dosage/Unit Concentration/Unit Diluent (ml) Solution IV Solutions 10/16/2016 3:47:28 PM 0 mL (IV) 500 NaCl .9 IV Solutions given in lab by Perla Long BSRN in Left Antecubital via Peripheral IV. Pump/Drip Flow = 20 ml/hr using NaCl .9. Initial Case Assessment Cardiovascular HR Rhythm NIBP Chest Pain 59 reg 148/67 2 Edema Present Skin color Skin None Normal Warm Dry Circulatory - Right Pulses Dorsalis Pedis Femoral Radial 2 2 2 Scale (0,1,2,3,4,d) Scale (0,1,2,3,4,d) Circulatory - Lower Extremities Color Lower Right Color Lower Left Normal Normal Neurological State Oriented to time-place- Alert Moves all extremities person Respiration - General Respiration Rate SpO2 (%) (B/min) 17 100 Final Case Assessment Cardiovascular HR Rhythm NIBP Chest Pain 67 reg 144/778 2 Edema Present Skin color Skin None Normal Warm Dry Circulatory - Right Pulses Dorsalis Pedis Femoral Radial 2 2 2 Scale (0,1,2,3,4,d) Scale (0,1,2,3,4,d) Circulatory - Lower Extremities Color Lower Right Color Lower Left Normal Normal Neurological State Oriented to time-place- Alert Moves all extremities person Respiration - General Respiration Rate SpO2 (%) (B/min) 12 100 Chronological Log Time Study Chronological Log 15:44:41 Patient arrived via Bed. 15:44:42 Patient Name, D.O.B, / Armband Verified By R.N. 15:44:42 Consent signed by the physician and the patient and verified by the [employer] staff. 15:44:43 Pre-op and post- op instructions given; patient acknowledges understanding of instructions. 15:44:44 Verbal Stimulation=2 Physical Stimulation=2 Airway=2 Respiration=2 TOTAL=8. (0=absent, 1=li mited, 2=present) 15:46:37 Anesthesia at bedside. Assumes care of patient. 15:46:40 Presedation assessment performed by [employer] RN. 15:46:45 Allens test performed on the right radial and ulnar artery. 15:47:08 Patient has been NPO for More than 6Hrs. 15:47:09 Skin Breakdown none per pt 15:47:10 Patient Warmer Placed on the Table. 15:47:26 Lester Prominences Protected 15:47:27 A # 20 IV was noted in the Antecubital (left). Grade = 0 IV Solutions given in lab by Perla Long BSRN in Left Antecubital via Peripheral IV. Pump /Drip Flow = 20 ml/hr 15:47:28 using NaCl .9. 15:47:29 History and physical on the chart or being dictated. Assessment: Initial Case, HR=59 BPM, Rhythm=reg, EPFE=610/67 mmhg, Chest Pain=2, Edema=None, [place] nat[place]ie=Normal, Skin = Warm, Dry Right Pulses: Jaxson Ped=2, Femoral=2, Radial=2 15:47:30 Lower Right Extremities: Color=Normal Lower Left Extremities: Color=Normal Neurological: State=Alert, Ox3, VERA Respiration: Resp=17 B/min, OpN5=165 % Vitals capture started with the following parameters, Patient=Adult, Interval=5 min, Initial Pr smilel=734 mmHg, 15:57:57 Deflation Rate=5 mmHg 15:58:37 HR=56 bpm, XCRZ=388/67 mmhg, DnW5=526.0 %, Resp=0 B/min, Pain=2, Alfredo=10, Junior=2 16:01:30 Reference ECG taken 16:03:38 HR=58 bpm, NARS=114/62 mmhg, SpO2=98.0 %, Resp=8 B/min, Pain=2, Alfredo=10, Junior=2 16:05:10 Right groin and right wrist prepped with 2% chlorhexidine, and with a 3 min. waiting time. 16:06:43 paged 16:08:35 HR=59 bpm, PYLG=106/65 mmhg, TvB3=740.0 %, Resp=10 B/min, Pain=2, Alfredo=10, Junior=2 16:09:47 Pressure channel 1 zeroed. 16:12:30 MD arrived 16:13:34 HR=57 bpm, EXZP=703/65 mmhg, SpO2=98.0 %, Resp=14 B/min, Pain=2, Alfredo=10, Junior=2 Time Out. Correct patient, correct procedure,correct physician, power injector not loaded with contrast with surgical 16:17:46 team present. Time Out Concurred by MD, individual staff in procedure 16:17:55 25 mcg FENTANYL given in lab by Perla Long BSRN in Left Antecubital via Peripheral I V. 16:18:02 Case Start 16:18:18 0.5 mg VERSED given in lab by Perla Long BSRN in Left Antecubital via Peripheral IV. 16:18:35 HR=62 bpm, MLEQ=500/70 mmhg, SpO2=99.0 %, Resp=7 B/min, Pain=2, Alfredo=10, Junior=2 16:19:31 1 mL 1% XYLOCAINE given in lab by Deyvi Campbell in Right Radial via Subcutaneous. 16:19:49 Access site was right Radial Artery. A SHEATH, FR6 TRANSRADIAL SLENDER 10CM FR 6 was advanced into the Radial (right) using the Perc utaneous 16:20:02 technique. 1 units RADIAL COCKTAIL given in lab by Deyvi Campbell in Right Radial via Radial. Reason: N tg 200mcg Verapamil 16:20:14 2.5mg Heparin 2800U. A JR 4.0 INFINITI CATHETER FR 5 was advanced over a wire. OMNIPAQUE, 350 MG, 150ML 150ML was us ed for 16:20:48 injections. 16:21:19 Wire removed 16:21:21 A WIRE, HYDROSTEER 150CM ANGLED GLIDE 150CM was inserted via Radial (right). 16:23:39 HR=61 bpm, NUZH=831/58 mmhg, SpO2=96.0 %, Resp=14 B/min, Pain=2, Alfredo=10, Junior=2 16:23:50 Wire removed 16:26:38 A WIRE, HYDROSTEER 150CM ANGLED GLIDE 150CM was inserted via Radial (right). 16:29:12 HR=61 bpm, CANR=146/60 mmhg, SpO2=99.0 %, Resp=21 B/min, Pain=2, Alfredo=10, Junior=2 16:31:23 Wire removed Recorded Pressure: Ao, HR=58, Condition=Condition 1 16:32:06 (Aorta) Ao 134/55/85 16:32:42 The RCA was injected and visualized at various angles. OMNIPAQUE, 350 MG, 150ML 150ML used . 16:33:20 A WIRE, EXCHANGE 260CM 3MMJ 260CM was inserted via Radial (right). 16:33:37 HR=60 bpm, AGAO=354/65 mmhg, SpO2=98.0 %, Resp=18 B/min, Pain=2, Alfredo=10, Junior=2 Recorded Pressure: LV, HR=61, Condition=Condition 1 16:36:04 (Left Ventricle) LV 151/5/18 Recorded Pressure: LV, Ao, HR=62, Condition=Condition 1 16:36:27 (Left Ventricle) LV 147/3/21, (Aorta) Ao 152/60/95 After removing the current catheter a JL 3.5 INFINITI CATHETER FR 5 was advanced over a WIRE, EXCHANGE 260CM 16:37:19 3MMJ 260CM. 16:38:20 The LCA was injected and visualized at various angles. OMNIPAQUE, 350 MG, 150ML 150ML use d. 16:38:38 HR=63 bpm, TNTY=258/67 mmhg, SpO2=99.0 %, Resp=19 B/min, Pain=2, Alfredo=10, Junior=2 16:43:39 HR=64 bpm, OORO=843/68 mmhg, HzW0=016.0 %, Resp=12 B/min, Pain=2, Alfredo=10, Junior=2 16:44:37 A WIRE, EXCHANGE 260CM 3MMJ 260CM was inserted via Radial (right). 16:44:48 Catheter was removed 16:44:51 Wire removed Radial Compression Device Used. 9 mLs of air placed in BAND, RADIAL COMPRESSION TR SHORT 24 24 CM. Affected 16:45:50 hand 100 % O2 saturation. 16:47:53 Case End 16:48:28 No case complications noted. 16:48:29 Cine recording checked. 16:48:33 Bedside Report will be given. 16:48:40 HR=67 bpm, BDSD=913/78 mmhg, CvM5=928.0 %, Resp=12 B/min, Pain=2, Alfredo=10, Junior=2 16:48:42 Contrast Scanned 16:49:00 Vitals capture stopped. Assessment: Final Case, HR=67 BPM, Rhythm=reg, KXKZ=649/778 mmhg, Chest Pain=2, Edema=None, Color=Normal, Skin = Warm, Dry Right Pulses: Jaxson Ped=2, Femoral=2, Radial=2 16:49:05 Lower Right Extremities: Color=Normal Lower Left Extremities: Color=Normal Neurological: State=Alert, Ox3, VERA Respiration: Resp=12 B/min, RkA1=847 % 16:50:41 A Left Heart Cath was performed. 16:50:43 Patient moved to stretcher 16:50:44 Clinical correlaton risk stratification. End Study - Contrast Media Used In Study Contrast Total Opened (mL) Total Used (mL) Total Wasted (mL) Omnipaque 30 30 0 End Study - Maximum Contrast Load Max Contrast Load (mL) 700.0 End Study - Radiation Exposure Fluoro Time (minutes) 8.0 End Study - Patient Disposition Complications Transferred To No Telemetry Bed
[2016-10-16] MEDS ORDERED: MISC INFORMATION XX ONE (17:15)
[2016-10-16] MEDS ORDERED: NITROGLYCERIN 0.4 MG SL 25 TABS/BTL SL PRN (17:15)
[2016-10-16] MEDS: ATORVASTATIN 10 MG TAB PO SCH (21:24)
[2016-10-16] MEDS: DOCUSATE SODIUM 100 MG CAP PO SCH (21:25)
[2016-10-17] VITALS (24 sets, daily range): BP systolic 102–146; BP diastolic 56–77; PULSE 50–73; RESP 16–19; TEMP 97.8–98.8; O2SAT 92–98
[2016-10-17] MEDS: ISOSORBIDE MONONITRATE 30 MG TAB PO SCH (06:29)
--- NOTE | 2016-10-17 07:36 | MB ---
cc: DEYVI CABRERA DO DATE OF CONSULTATION 10/16/2016 REASON FOR CONSULTATION Interventional consultation for consideration of cardiac catheterization. HISTORY OF PRESENT ILLNESS Cat Anders is a pleasant 70-year-old female who presents to [facility] emergency room on October 14, 2016 due to chest pain. She states that she originally started having chest pain in September and thought nothing of it. She then went to see her primary care physician who was setting her up to see Dr. Swanson as her sees him from a cardiology standpoint. She continued to have the episodes and so she came to the emergency room. When she had an episode of chest pain, it is in the center of her chest and is a mild discomfort. She has no shortness of breath, lightheadedness or dizziness with it. After troponin's ruled her out for ischemia, she underwent pharmacologic nuclear stress testing which showed a moderate sized area of reperfusion concerning for possible ischemia. Since being in the hospital, she has had occasional episodes of chest pain still. PAST MEDICAL HISTORY Hyperlipidemia PAST SURGICAL HISTORY 1. Tubal ligation 2. Deviated septum repair 3. Right rotator cuff repair ALLERGIES 1. NICKEL 2. SULFA MEDICATIONS 1. Fish oil 1200 mg b.i.d. 2. Crestor 5 mg every night 3. Aspirin 81 mg daily 4. Ibuprofen 400 mg b.i.d. 5. Black Cohosh 6. Coenzyme Q10 7. Flax seed oil 8. Glucosamine 9. Biotin 10 mg every night FAMILY HISTORY Denies premature coronary artery disease or sudden cardiac within the family. SOCIAL HISTORY The patient previously smoked, but quit in 1988. Rarely drinks alcohol. Denies illicit drug abuse. REVIEW OF SYSTEMS 14-systems were reviewed including osteopathic pertinent positives and negatives as above, otherwise negative. PHYSICAL EXAMINATION VITAL SIGNS: Temperature 98.0, heart rate 57, blood pressure 113/49, respirations 18, pulse ox 98% on room air. GENERAL: In general, the patient appears well in no acute distress, alert, awake and oriented x3. HEAD, EYES, EARS, NOSE, AND THROAT: Extraocular muscles intact. Mucous membranes moist. NECK: Supple. No JVD at 45 degrees. No carotid bruits heard bilaterally. Carotid upstroke is brisk in nature. HEART: Regular rate and rhythm. Positive first and second heart sounds with no murmurs, gallops or rubs. LUNGS: Clear to auscultation bilaterally. No wheezes, rales or rhonchi. ABDOMEN: Soft, nontender, nondistended. No organomegaly noted. EXTREMITIES: Show no clubbing, cyanosis or edema. Femoral and distal pulses intact bilaterally. NEUROLOGIC: No focal deficits. SKIN: Warm, dry and intact. OSTEOPATHIC: No kyphoscoliosis, lordosis or paraspinal tender points. LABORATORY FINDINGS Hemoglobin 14.3, hematocrit 43.6, platelets 248. Potassium 4.1, BUN 18, creatinine 0.56, total cholesterol 185, LDL 93, HDL 74, triglycerides 89. IMPRESSION 1. Chest pain concerning for coronary insufficiency. 2. Abnormal pharmacologic nuclear stress test with what appears to be a moderate area of decreased uptake in the anterior wall. 3. Hyperlipidemia 4. Nickel allergy RECOMMENDATIONS 1. Miss Anders appears to have presented with angina and since had other episodes while in the hospital of this chest pain. On stress testing, it appears to be a moderate sized area of stress induced ischemia of the anterior wall which is a low risk stress test but overall feels this is probably the intermediate risk stress test. 2. Recommended that she undergo cardiac catheterization for coronary visualization. The risks, benefits and alternatives have been explained to her and she consents as such. 3. My overall concern is that she is allergic to nickel and all our stents have nickel in them. Reviewing the data, it appears that there is no true recommendation for how to go about treating these patients. Overall, the recommendations from all the stent companies is that it is not indicated to place a stent in someone with a nickel allergy. Overall, her nickel allergy appears to be severe as she gets severe allergic reaction from jewelry to the point where when she wears hearing her ears begin to weep 10 minutes after placing them in. 4. If she does have significant disease, consideration will need to be made for possible alternatives to stenting including coronary artery bypass grafting, balloon angioplasty versus medical management. 5. Further recommendations will be made after cardiac catheterization. Thank you for allowing me to see Cat Anders. If there are any questions, please do not hesitate to call. Deyvi Cabrera DO VGP/DJL /11:13 PM /7:28 AM
--- NOTE | 2016-10-17 08:18 | MA ---
cc: DEYVI CABRERA DO DATE 10/16/2016 PROCEDURE Left heart catheterization, coronary angiogram, moderate sedation 30 minutes. PREPROCEDURE DIAGNOSIS Unstable angina, abnormal stress test. POSTPROCEDURE DIAGNOSIS Multivessel coronary artery disease, consideration of coronary artery bypass grafting. MEDICATIONS 1. Versed 0.5 mg 2. Fentanyl 25 mcg 3. Heparin 2800 units 4. Verapamil 2.5 mg 5. Nitro 200 mcg CONTRAST 30 cc FLUOROSCOPY 8 minutes SEDATION Moderate sedation 30 minutes ESTIMATED BLOOD LOSS 10 cc PROCEDURE Cat Anders is a pleasant 70-year-old female who presented to [facility] due to chest pain. She underwent pharmacologic nuclear stress testing and during this was found to have a moderate size area of stress induced perfusion defect in the anterior wall and because of this she was recommended cardiac catheterization. The risks, benefits and alternatives were explained to her and she consented as such. She was brought to the lab and prepped in the usual sterile fashion. The right radial artery was accessed using a modified Seldinger technique and placement of a 5/6 Lao slender sheath. A JR-4 was advanced over a J-wire and met resistance in the upper forearm. Angiogram shows a radial artery with mild distal spasm versus stenosis. Glidewire was used to advance up the radial artery into the ascending aorta. JR-4 was then used for selective angiography of the right coronary system. Afterwards the J-wire was used to advance the JR-4 into the left ventricle for measurement of pressures. This was pulled back across the aortic valve showing no significant gradient of aortic stenosis. JR-4 was then exchanged for a JL-3.5 which was used for selective angiography of the left coronary system. JL-3.5 was then removed over it. A radial band was placed over the arteriotomy site for hemostasis. The patient left the laborer cement gun placing cardiovascularly stable. FINDINGS Left main is a normal size vessel with adequate reflux. It bifurcates into an LAD and left circumflex. LAD is overall a small to moderate sized vessel with mild luminal irregularities through the midportion until it has an 80% stenosis after the first diagonal. It gives off two small diagonals with diffuse 50% disease. Left circumflex is a moderate size vessel with mild luminal irregularities throughout. It gives off one large obtuse marginal with distal 50% disease. RCA is a small to moderate size vessel with 50% stenosis in the proximal portion and midportion of 70%. It is a dominant vessel by nature. Left ventricular end-diastolic pressure 21. IMPRESSION 1. Chest pain concerning for coronary insufficiency. 2. Abnormal stress test showing anterior ischemia. 3. Multivessel coronary artery disease with significant disease in the LAD and RCA. 4. Nickel allergies. RECOMMENDATIONS 1. Ms. Anders appears to have presented with chest pain and was found to have disease in both her LAD and RCA. 2. Because of her nickel allergy, stenting cannot be done as all our stents have nickel in them. 3. Overall, I think that she should consider coronary artery bypass grafting as this would revascularize both her LAD and RCA. 4. If for some reason she is turned for surgery or denies surgery, consideration could be made for balloon angioplasty, although I explained to her that the risk of restenosis is relatively high without stenting. 5. CT surgery will be consulted for consideration of coronary artery bypass grafting. Thank you for allowing me to see Cat Anders. If there are any questions, please do not hesitate to call. Deyvi Cabrera DO VGP/DJL /11:42 PM /8:05 AM
[2016-10-17] MEDS: SODIUM CHLORIDE 0.9% FLUSH 5 ML FLUSH IVF SCH (09:00)
[2016-10-17] MEDS: ASPIRIN 325 MG TAB PO SCH (09:00)
[2016-10-17] MEDS: METOPROLOL TARTRATE 25 MG TAB PO SCH ×2 (09:00→21:00)
[2016-10-17] MEDS: DOCUSATE SODIUM 100 MG CAP PO SCH ×2 (09:00→21:57)
[2016-10-17] MEDS: PANTOPRAZOLE SOD 40 MG DELAYED RELEASE TAB PO SCH (09:00)
--- NOTE | 2016-10-17 10:21 | HHI.PR ---
Subjective Remarks The patient says her chest pain has resolved. She was made aware of her catheterization findings and seems agreeable with proceeding with surgery if indicated. Her family was at the bedside and their questions were answered. Objective Vitals Vital Signs Date Time Temp Pulse Resp B/P Pulse Ox O2 Delivery O2 Flow Rate FiO2 10/17/16 05:33 53 10/17/16 04:06 58 10/17/16 03:50 63 10/17/16 03:50 97.9 60 16 109/60 98 10/17/16 02:05 50 10/17/16 01:11 51 10/17/16 00:01 53 10/16/16 23:59 98.0 51 18 112/49 97 10/16/16 23:58 49 10/16/16 22:00 54 10/16/16 21:00 62 10/16/16 20:15 66 10/16/16 19:15 98.4 68 16 121/60 97 10/16/16 19:15 63 10/16/16 18:00 60 10/16/16 17:00 62 10/16/16 15:00 98.0 52 18 113/49 98 10/16/16 15:00 52 10/16/16 14:00 52 10/16/16 13:00 50 10/16/16 12:00 52 10/16/16 11:00 52 10/16/16 11:00 98.0 52 18 113/49 98 I/O 10/16/16 10/16/16 10/16/16 10/17/16 10/17/16 10/17/16 07:00 15:00 23:00 07:00 15:00 23:00 Intake Total 250 ml 990 ml 1220 ml Output Total 400 ml 1150 ml Balance -150 ml 990 ml 70 ml Intake Oral 250 ml 240 ml 720 ml IV Total 750 ml 500 ml Output Urine Total 400 ml 1150 ml # Voids 2 4 Result Diagram: 10/14/16 0815 10/16/16 0607 Imaging Last Impressions Myocardial Perfusion Scan Nuc Med 10/15/16 0000 Signed Impressions: Service Date/Time: Saturday, October 15, 2016 09:17 - CONCLUSION: There does appear to be much better perfusion at rest and stress in the anterior wall in the LAD distribution on at least 4 consecutive images raise possibility of LAD ischemia. RISK CATEGORY: Low (<1%% Annual Mortality Rate) Moris Orourke MD Chest X-Ray 10/14/16 0806 Signed Impressions: Service Date/Time: Friday, October 14, 2016 08:44 - CONCLUSION: Normal examination. Moris Orourke MD Objective Remarks GENERAL: Well-nourished, well-developed pleasant female patient in [facility]. SKIN: Warm and dry. No rash. HEENT: Normocephalic. Atraumatic.Pupils equal and round. Mucous membranes pink and moist. NECK: Supple. Trachea midline. CARDIOVASCULAR: Regular rate and rhythm. S1, S2 noted. Grade 2 systolic murmur appreciated. RESPIRATORY: No accessory muscle use. Clear to auscultation. Breath sounds equal bilaterally. GASTROINTESTINAL: Abdomen soft, non-tender, nondistended. Normoactive bowel sounds x4. MUSCULOSKELETAL: No obvious deformities. Extremities without clubbing, cyanosis , or edema. No reproducible chest pain to palpation. NEUROLOGICAL: Awake and alert. No obvious cranial nerve deficits. Motor grossly within normal limits. Normal speech. PSYCHIATRIC: Appropriate mood and affect; insight and judgment normal. Medications and IVs Current Medications Medications (Trade) Dose Ordered Sig/Leonardo Route Start Time Stop Time Status Last Admin (Protonix) 40 mg DAILY PO 10/14/16 12:00 10/17/16 09:00 (NS Flush) 2 ml UNSCH PRN IVF 10/14/16 12:00 (NS Flush) 2 ml BID IVF 10/14/16 21:00 10/17/16 09:00 (Tylenol) 500 mg Q4H PRN PO 10/14/16 12:00 ([place] 7.5-325 Mg) 1 tab Q4H PRN PO 10/14/16 12:00 10/14/16 18:55 (Zofran Inj) 4 mg Q6H PRN IV 10/14/16 12:00 (Xanax) 0.25 mg Q8H PRN PO 10/14/16 12:00 (Lipitor) 10 mg HS PO 10/14/16 21:00 10/16/16 21:24 (Aspirin) 325 mg DAILY PO 10/15/16 09:00 10/17/16 09:00 (Catapres) 0.1 mg Q4H PRN PO 10/14/16 14:45 (Lopressor) 12.5 mg Q12HR PO 10/15/16 15:00 10/17/16 09:00 (Imdur) 30 mg DAILY@07 PO 10/16/16 07:00 10/17/16 06:29 (Pill Splitter) 1 ea UNSCH PRN OTHER 10/15/16 15:15 (Colace) 100 mg BID PO 10/16/16 21:00 10/17/16 09:00 (Nitrostat Sl) 0.4 mg Q5M PRN SL 10/16/16 17:15 A/P Problem List: (1) Chest pain ICD Code: R07.9 Status: Acute Assessment and Plan CAD Initially admitted to [facility], ACS ruled out with negative serial cardiac enzymes x4 and EKG without acute ischemic changes, does show RBBB. Nuclear stress test abnormal, showed concern for possible LAD ischemic. Patient transferred to hospitalist. Cardiology consult appreciated. LDL 93. A1c not elevated. Catheterization revealed obstructive disease in the LAD and RCA. The pt is allergic to nickel so stenting was not possible. Cardiothoracic surgery was consulted. - Continue aspirin and statin and beta jonhson. - continue Imdur 30mg daily. - monitor on telemetry. - await CTS evaluation. Hypertension No hx of hypertension, not on meds, and patient reports she checks her BP at home with systolic in the 120s consistently; possibly BP elevation secondary to pain vs whitecoat hypertension. Well controlled at this time. - started on metoprolol for now. DVT Prophylaxis: teds/SCDs Discharge Planning Awaiting CTS evaluation Problem Qualifiers (1) Chest pain: Qualified Code: R07.9 - Chest pain, unspecified type Britton Craven DO Oct 17, 2016 10:20
--- NOTE | 2016-10-17 11:55 | PD.CARD.PN ---
Subjective Subjective Remarks No events over night, no chest pain Objective Medications Current Medications Medications (Trade) Dose Ordered Sig/Leonardo Route Start Time Stop Time Status Last Admin (Protonix) 40 mg DAILY PO 10/14/16 12:00 10/17/16 09:00 (NS Flush) 2 ml UNSCH PRN IVF 10/14/16 12:00 (NS Flush) 2 ml BID IVF 10/14/16 21:00 10/17/16 09:00 (Tylenol) 500 mg Q4H PRN PO 10/14/16 12:00 (Sandy 7.5-325 Mg) 1 tab Q4H PRN PO 10/14/16 12:00 10/14/16 18:55 (Zofran Inj) 4 mg Q6H PRN IV 10/14/16 12:00 (Xanax) 0.25 mg Q8H PRN PO 10/14/16 12:00 (Lipitor) 10 mg HS PO 10/14/16 21:00 10/16/16 21:24 (Aspirin) 325 mg DAILY PO 10/15/16 09:00 10/17/16 09:00 (Catapres) 0.1 mg Q4H PRN PO 10/14/16 14:45 (Lopressor) 12.5 mg Q12HR PO 10/15/16 15:00 10/17/16 09:00 (Imdur) 30 mg DAILY@07 PO 10/16/16 07:00 10/17/16 06:29 (Pill Splitter) 1 ea UNSCH PRN OTHER 10/15/16 15:15 (Colace) 100 mg BID PO 10/16/16 21:00 10/17/16 09:00 (Nitrostat Sl) 0.4 mg Q5M PRN SL 10/16/16 17:15 Vital Signs / I&O Vital Signs Date Time Temp Pulse Resp B/P Pulse Ox O2 Delivery O2 Flow Rate FiO2 10/17/16 10:22 66 10/17/16 09:30 92 21 10/17/16 09:23 67 10/17/16 08:06 62 10/17/16 07:54 73 10/17/16 07:54 98.2 63 18 131/64 98 10/17/16 05:33 53 10/17/16 04:06 58 10/17/16 03:50 63 7/11/17 03:50 97.9 60 16 109/60 98 10/17/16 02:05 50 10/17/16 01:11 51 10/17/16 00:01 53 10/16/16 23:59 98.0 51 18 112/49 97 10/16/16 23:58 49 10/16/16 22:00 54 10/16/16 21:00 62 10/16/16 20:15 66 10/16/16 19:15 98.4 68 16 121/60 97 10/16/16 19:15 63 10/16/16 18:00 60 10/16/16 17:00 62 10/16/16 15:00 98.0 52 18 113/49 98 10/16/16 15:00 52 10/16/16 14:00 52 10/16/16 13:00 50 10/16/16 12:00 52 I/O 10/16/16 10/16/16 10/16/16 10/17/16 10/17/16 10/17/16 07:00 15:00 23:00 07:00 15:00 23:00 Intake Total 250 ml 990 ml 1220 ml Output Total 400 ml 1150 ml Balance -150 ml 990 ml 70 ml Intake Oral 250 ml 240 ml 720 ml IV Total 750 ml 500 ml Output Urine Total 400 ml 1150 ml # Voids 2 4 Physical Exam GENERAL: NAD, AAOx3 SKIN: Warm and dry. HEAD: Atraumatic. Normocephalic. EYES: Pupils equal and round. No scleral icterus. No injection or drainage. ENT: No nasal bleeding or discharge. Mucous membranes pink and moist. NECK: Trachea midline. No JVD. CARDIOVASCULAR: Regular rate and rhythm. RESPIRATORY: No accessory muscle use. Clear to auscultation. Breath sounds equal bilaterally. GASTROINTESTINAL: Abdomen soft, non-tender, nondistended. Hepatic and splenic margins not palpable. MUSCULOSKELETAL: Extremities without clubbing, cyanosis, or edema. No obvious deformities. Right radial no hematoma, neurovascularly intact distally NEUROLOGICAL: Awake and alert. No obvious cranial nerve deficits. Motor grossly within normal limits. Five out of 5 muscle strength in the arms and legs. Normal speech. PSYCHIATRIC: Appropriate mood and affect; insight and judgment normal. Laboratory Laboratory Tests Test 7/8/17 10/14/16 10/15/16 10/16/16 14:15 17:15 19:00 06:07 Total Creatine Kinase 97 U/L (26-192) 92 U/L (26-192) Troponin I 0.04 NG/ML 0.04 NG/ML (0.02-0.05) (0.02-0.05) Hemoglobin A1c 5.8 % (4.3-6.0) Sodium Level 141 MEQ/L (136-145) Potassium Level 4.1 MEQ/L (3.5-5.1) Chloride Level 105 MEQ/L (98-107) Carbon Dioxide Level 29.6 MEQ/L (21.0-32.0) Anion Gap 6 MEQ/L (5-15) Blood Urea Nitrogen 18 MG/DL (7-18) Creatinine 0.56 MG/DL (0.50-1.00) Estimat Glomerular Filtration 107 ML/MIN Rate (>89) Random Glucose 110 MG/DL (74-106) Calcium Level 9.2 MG/DL (8.5-10.1) Triglycerides Level 89 MG/DL (42-150) Cholesterol Level 185 MG/DL (120-200) LDL Cholesterol 93 MG/DL (0-99) HDL Cholesterol 74.1 MG/DL (40.0-60.0) Cholesterol/HDL Ratio 2.49 RATIO Lipase 115 U/L (73-393) Assessment and Plan Problem List: (1) Chest pain (2) CAD (coronary artery disease) (3) Unstable angina Assessment and Plan 1) Multi-vessel CAD with mid LAD and RCA 2) Nickel allergy (all current stent made of nickel) Discussed options with her and her , best option is CABG, if for some reason can't undergo CABG then will consider POBA although restenosis rates are high 3) 2D echo pending 4) Will await CT surgery evaluation Problem Qualifiers (1) Chest pain: Qualified Code: R07.9 - Chest pain, unspecified type Deyvi Campbell DO Oct 17, 2016 11:55
[2016-10-17] MEDS ORDERED: ceFAZolin 2 GM PREMIX 50 ML IV SCH (16:45)
[2016-10-17] MEDS ORDERED: SODIUM CHLORIDE 0.9% FLUSH 10 ML FLUSH IV FLUSH PRN (16:45)
[2016-10-17] MEDS ORDERED: CEFAZOLIN INJ 500 MG in SODIUM CHLORIDE 0.9% IRR BTL 500 ML IRRIGATION SCH (16:45)
[2016-10-17] MEDS ORDERED: CHLORHEXIDINE GLUCONATE 4% SOLN 120 ML BTL TOPICAL SCH (16:45)
[2016-10-17] MEDS ORDERED: METOPROLOL TARTRATE 25 MG TAB PO SCH (16:45)
[2016-10-17] MEDS ORDERED: INSULIN REGULAR (IV INFUSION) 100 UNITS in SODIUM CHLORIDE 0.9% INJ 100 ML IV SCH (16:45)
[2016-10-17] MEDS ORDERED: PAPAVERINE INJ 60 MG, NITROGLYCERIN INJ 100 MCG, DILTIAZEM INJ 100 MG in SODIUM CHLORID... IRRIGATION SCH (17:00)
[2016-10-17] MEDS ORDERED: HEPARIN-D5W INJ 250 ML IV SCH (20:00)
--- NOTE | 2016-10-17 20:14 | RADRPT ---
EXAM DATE/TIME: 10/17/2016 19:16 [facility] COMPARISON: No previous studies available for comparison. INDICATIONS : Preop cardiac surgery. MEDICAL HISTORY : Hypercholesterolemia. SURGICAL HISTORY : Tubal ligation. Rotator cuff, right. ENCOUNTER: Initial ACUITY: 1 day PAIN SCORE: 0/10 LOCATION: Bilateral neck PEAK SYSTOLIC VELOCITIES (cm/sec): ICA/CCA RATIO: Right: 1.0 Left: 0.9 ICA: Right: 107 Left: 88 CCA: Right: 103 Left: 103 ECA: Right: 89 Left: 159 VERTEBRAL: Right: 74 antegrade Left: 51 antegrade Elevated flow velocities and ICA/CCA ratios have been found to correlate with increased degrees of vessel stenosis, calculated as percentage of diameter relative to a normal segment of distal ICA/CCA FINDINGS: RIGHT CAROTID: Mild calcified plaque involving the proximal ICA. No significant stenosis is visualized. The wavefor ms are within normal limits. LEFT CAROTID: Mild calcified plaque involving the proximal ICA. No significant stenosis is visualized. The wavefor ms are within normal limits. VERTEBRAL ARTERIES: Antegrade flow is seen in both vertebral arteries. MISCELLANEOUS: None. CONCLUSION: 1. No hemodynamically significant stenosis involving either carotid artery. 2. Antegrade flow involving both vertebral arteries. Demetrius Long Jr., MD on October 17, 2016 at 20:11 Board Certified Radiologist. This report was verified electronically.
--- NOTE | 2016-10-17 20:23 | RADRPT ---
EXAM DATE/TIME: 10/17/2016 18:43 [facility] COMPARISON: No previous studies available for comparison. INDICATIONS : Preop cardiac surgery. MEDICAL HISTORY : Hypercholesterolemia. SURGICAL HISTORY : Rotator cuff, right. Tubal ligation. ENCOUNTER: Initial ACUITY: 1 day PAIN SCORE: 0/10 LOCATION: Bilateral leg. GREATER SAPHENOUS VEIN THIGH: PROXIMAL: Right 5 mm Left 5 mm MID: Right 2 mm Left 3 mm DISTAL: Right 3 mm Left 3 mm CALF: PROXIMAL: Right 4 mm Left 3 mm MID: Right 2 mm Left 2 mm DISTAL: Right 2 mm Left 2 mm FINDINGS: The venous system of the lower extremities are patent by color Doppler imaging. Measurements of the leg veins (in mm) are listed above. CONCLUSION: Venous mapping as detailed above. Demetrius Long Jr., MD on October 17, 2016 at 20:21 Board Certified Radiologist. This report was verified electronically.
--- NOTE | 2016-10-17 20:23 | RADRPT ---
EXAM DATE/TIME: 10/17/2016 18:32 [facility] COMPARISON: No previous studies available for comparison. INDICATIONS : Preop cardiac surgery. MEDICAL HISTORY : Hypercholesterolemia. SURGICAL HISTORY : Rotator cuff, right.Tubal ligation. ENCOUNTER: Initial ACUITY: 1 day PAIN SCORE: 0/10 LOCATION: Bilateral leg. TECHNIQUE: Venous ultrasound of the left and right leg was performed from the inguinal ligament to the proximal calf. Real-time, color Doppler and spectral tracing, compression and augmentation techniques were us ed. FINDINGS: RIGHT LEG: There is normal compressibility of the deep venous system from the inguinal region to the proximal ca lf. No echogenic clot is seen in the lumen of the common femoral, femoral, popliteal, and posterior tibial veins. There is a normal response of the venous system to proximal and distal augmentation an d respiration. LEFT LEG: There is normal compressibility of the deep venous system from the inguinal region to the proximal ca lf. No echogenic clot is seen in the lumen of the common femoral, femoral, popliteal, and posterior tibial veins. There is a normal response of the venous system to proximal and distal augmentation an d respiration. CONCLUSION: Normal examination. Demetrius Long Jr., MD on October 17, 2016 at 20:20 Board Certified Radiologist. This report was verified electronically.
[2016-10-17 20:54] LABS: BLOOD, URINE NEG (NEG); COMMENT (UR) CULT NOT INDICATED; CULTURE IF INDICATED CULT NOT INDICATED; GLUCOSE,URINE NEG (NEG); KETONE, URINE NEG (NEG); NITRITE,URINE NEG (NEG); URINE COLOR LIGHT-YELLOW (YELLW/STRAW)
[2016-10-17] MEDS: ATORVASTATIN 10 MG TAB PO SCH (21:57)
[2016-10-17] MEDS: SODIUM CHLORIDE 0.9% FLUSH 10 ML FLUSH IV FLUSH SCH (22:03)
--- NOTE | 2016-10-17 22:51 | ECHRPT ---
Indication: CAD for CABG CONCLUSIONS Normal left ventricular size. Mild concentric left ventricular hypertrophy. The left ventricular systolic function is low normal with an estimated ejection fraction in the rang e of 50- 55%. Trace mitral valve regurgitation. Aortic valve sclerosis is present. BP: 131 / 64 HR: 66 Rhythm: MEASUREMENTS (Male / Female) Normal Values Technical Quality: 2D ECHO LV Diastolic Diameter PLAX 4.6 cm 4.2 - 5.9 / 3.9 - 5.3 cm LV Systolic Diameter PLAX 3.6 cm IVS Diastolic Thickness 0.6 cm 0.6 - 1.0 / 0.6 - 0.9 cm LVPW Diastolic Thickness 0.7 cm 0.6 - 1.0 / 0.6 - 0.9 cm LV Relative Wall Thickness 0.3 RV Internal Dim ED PLAX 2.2 cm LVOT Diameter 2.0 cm LA Systolic Diameter LX 3.4 cm 3.0 - 4.0 / 2.7 - 3.8 cm DOPPLER AV Peak Velocity 354.0 cm/s AV Peak Gradient 50.1 mmHg AV Mean Gradient 17.0 mmHg AV Velocity Time Integral 79.1 cm LVOT Peak Velocity 131.0 cm/s LVOT Peak Gradient 6.9 mmHg LVOT Velocity Time Integral 33.4 cm LVOT Cardiac Index 3914.6 cm/minm AV Area Cont Eq vti 1.3 cm AV Area Cont Eq pk 1.2 cm MV Peak Velocity 93.7 cm/s MV Peak Gradient 3.5 mmHg MV Mean Velocity 51.7 cm/s MV Mean Gradient 1.0 mmHg Mitral E Point Velocity 67.6 cm/s Mitral A Point Velocity 79.0 cm/s Mitral E to A Ratio 0.9 LV E' Lateral Velocity 8.2 cm/s Mitral E to LV E' Lateral Ratio 8.3 TR Peak Velocity 281.0 cm/s TR Peak Gradient 31.6 mmHg FINDINGS LEFT VENTRICLE Normal left ventricular size. Mild concentric left ventricular hypertrophy. The left ventricular systolic function is low normal with an estimated ejection fraction in the rang e of 50- 55%. RIGHT VENTRICLE Normal right ventricular size and systolic function. LEFT ATRIUM The left atrial size is normal. RIGHT ATRIUM The right atrial size is normal. ATRIAL SEPTUM Normal atrial septal thickness without atrial level shunting by limited color doppler interrogation. AORTA The aortic root and proximal ascending aorta are normal in size on limited imaging. MITRAL VALVE Trace mitral valve regurgitation. AORTIC VALVE Aortic valve sclerosis is present. TRICUSPID VALVE Structurally normal tricuspid valve. No tricuspid valve stenosis or regurgitation. PULMONARY VALVE The pulmonary valve is not well visualized. VESSELS The inferior vena cava is normal in size. PERICARDIUM No pericardial effusion. George Farnsworth MD (Electronically Signed) Final Date:17 October 2016 22:50
[2016-10-18] VITALS (24 sets, daily range): BP systolic 108–144; BP diastolic 57–73; PULSE 47–68; RESP 15–18; TEMP 97.6–98.4; O2SAT 98–99
[2016-10-18] MEDS: ISOSORBIDE MONONITRATE 30 MG TAB PO SCH (05:53)
--- NOTE | 2016-10-18 08:24 | MB ---
cc: TAMARA CABRERA SOHIT K. MD KELLER, KIMBERLY A. DO DATE OF : 1945 DATE OF CONSULTATION: 10/17/2016 REASON FOR CONSULTATION: Evaluate for coronary artery bypass grafting HISTORY OF PRESENT ILLNESS: The patient is a 70-year-old patient of Dr. Melisa Herman and Dr. Cabrera who apparently having some heartburn back in September 23. She finally went to see her primary care, October 12, for a physical, told her physician about the significant reflux. She had an EKG done which was abnormal. She was to be seen as an outpatient by Dr. Swanson but developed more chest pain on Sunday with recurrent heartburn. She was initially ruled out for IN but then a nuclear stress test was somewhat abnormal with decreased perfusion down the anterior wall, also in the apex, would appear to be better perfusion at rest suggesting ischemia in the LAD distribution. She underwent cardiac catheterization today by Dr. Cabrera which showed an 80% stenosis in the mid portion of the LAD after the first diagonal, two small diagonals with diffuse 50% disease, the left circ was moderate in size. There was an OM with 50% disease. The RCA had a 70% stenosis in the proximal portion. Echocardiogram is pending to evaluate for any valvular disease and her ejection fraction. We were consulted to evaluate for coronary artery bypass graft. Initially she was evaluated for possible PCI stent placement, however, she has a significant ALLERGY TO NICKEL, where she has had earrings in the past and has been tested and had significant inflammation, redness, inflamed from the nickel itself. PAST MEDICAL HISTORY: Hyperlipidemia Arthritis. PAST SURGICAL HISTORY: None. ALLERGIES: SULFA NICKEL HOME MEDICATIONS: 1. Lipitor 10 p.o. q hs. 2. Voltaren gel. FAMILY HISTORY: Mother with colon cancer at age 52, father is unknown. SOCIAL HISTORY: The patient is . She did smoke approximately 30 years, started at age 12, quit at age 41. She smoked for the last part of those years, three packs per day, she quit in 1988. Rare alcohol. REVIEW OF SYSTEMS: GENERAL: No night sweats, fever, heat and cold intolerance. Skin: No psoriasis, itching or hives. HEENT: No blurred vision, hearing loss. Respiratory: No cough, shortness of breath. Cardiovascular: As above in HPI. Gastrointestinal: As above the HPI. No diarrhea or vomiting. Genitourinary: No burning, frequency, urgency. TECHNICAL SUPPORT ASSOCIATE: No history of TIA, CVA, seizure disorder. Endocrinology: No history of diabetes or hypothyroidism. PHYSICAL EXAMINATION: VITAL SIGNS: Blood pressure 110/60, heart rate 58, afebrile. GENERAL: The patient is awake, alert, in no acute distress. HEAD: Normocephalic, atraumatic. Pupils equal and reactive. Oral mucosa pink, moist. NECK: Supple. No JVD. HEART: Heart sounds S1-S2, regular rate and rhythm. No rubs, murmurs, gallops. LUNGS: Clear to auscultation with no wheezes, rales or rhonchi. ABDOMEN: Soft, nontender. No masses or organomegaly. EXTREMITIES: No clubbing, cyanosis or edema. LABORATORY WORK: Shows hemoglobin 14, hematocrit of 43, white cell count of 6.6, platelet count 248, sodium 141, potassium 4.1, BUN of 18, creatinine 0.56. Triglycerides 89. Cholesterol 185, LDL of 93. HDL of 74. INR 0.9. Chest x-ray: Unremarkable. EKG: Sinus rhythm with a right bundle-branch block. No prior EKG to compare to. IMPRESSION: Very pleasant 70-year-old patient with unstable angina status post positive stress test and heart catheterization with two-vessel disease. PLAN: The plan will be for coronary artery bypass grafting x2, the LAD and the RCA on Sunday. Procedures, alternatives and risks have been discussed with the patient. The patient is agreeable to proceed. Await the echocardiogram to evaluate STS data and that will also be discussed with the patient. Further plan per Dr. Rabago. Dictated by: JANETH Reinoso Connor MILLIGAN /4:54 PM /8:27 AM
[2016-10-18] MEDS: ASPIRIN 325 MG TAB PO SCH (08:38)
[2016-10-18] MEDS: DOCUSATE SODIUM 100 MG CAP PO SCH ×2 (08:38→21:58)
[2016-10-18] MEDS: PANTOPRAZOLE SOD 40 MG DELAYED RELEASE TAB PO SCH (08:38)
[2016-10-18] MEDS: SODIUM CHLORIDE 0.9% FLUSH 10 ML FLUSH IV FLUSH SCH ×2 (08:38→22:00)
[2016-10-18] MEDS: METOPROLOL TARTRATE 25 MG TAB PO SCH ×2 (08:38→21:58)
--- NOTE | 2016-10-18 09:33 | HHI.PR ---
Subjective Remarks The patient feels great. She wants to know whatever surgery will be on Sunday. She denies chest pain or shortness of breath. She has been ambulating. She would like to work with physical therapy. Objective Vitals Vital Signs Date Time Temp Pulse Resp B/P Pulse Ox O2 Delivery O2 Flow Rate FiO2 10/18/16 08:46 51 10/18/16 07:41 54 10/18/16 07:41 97.7 51 16 108/59 10/18/16 06:00 54 10/18/16 05:00 64 10/18/16 04:00 60 10/18/16 03:00 98.3 58 17 144/72 10/18/16 03:00 47 10/18/16 02:00 48 10/18/16 01:00 50 10/18/16 00:00 50 10/17/16 23:00 52 10/17/16 23:00 98.8 52 17 123/56 95 10/17/16 22:00 60 10/17/16 21:00 58 10/17/16 20:00 52 10/17/16 19:00 64 10/17/16 19:00 98.4 62 19 146/67 97 10/17/16 18:16 73 10/17/16 17:37 58 10/17/16 16:07 57 10/17/16 15:49 97.8 58 18 111/66 98 10/17/16 15:49 58 10/17/16 14:25 66 10/17/16 13:37 60 10/17/16 12:21 61 10/17/16 11:28 97.8 59 18 102/63 98 10/17/16 11:28 59 10/17/16 10:22 66 I/O 10/17/16 10/17/16 10/17/16 10/18/16 10/18/16 10/18/16 07:00 15:00 23:00 07:00 15:00 23:00 Intake Total 1220 ml 720 ml 980 ml Output Total 1150 ml 1000 ml 1200 ml Balance 70 ml -280 ml -220 ml Intake Oral 720 ml 720 ml 980 ml IV Total 500 ml Output Urine Total 1150 ml 1000 ml 1200 ml # Bowel Movements 1 Result Diagram: 10/14/16 0815 10/16/16 0607 Imaging Last Impressions Lower Extremity Ultrasound 10/17/16 0000 Signed Impressions: Service Date/Time: Monday, October 17, 2016 18:43 - CONCLUSION: Venous mapping as detailed above. Demetrius Long Jr., MD Carotid Artery Ultrasound 10/17/16 0000 Signed Impressions: Service Date/Time: Monday, October 17, 2016 19:16 - CONCLUSION: 1. No hemodynamically significant stenosis involving either carotid artery. 2. Antegrade flow involving both vertebral arteries. Demetrius Long Jr., MD Myocardial Perfusion Scan Nuc Med 10/15/16 0000 Signed Impressions: Service Date/Time: Saturday, October 15, 2016 09:17 - CONCLUSION: There does appear to be much better perfusion at rest and stress in the anterior wall in the LAD distribution on at least 4 consecutive images raise possibility of LAD ischemia. RISK CATEGORY: Low (<1%% Annual Mortality Rate) Moris Orourke MD Chest X-Ray 10/14/16 0806 Signed Impressions: Service Date/Time: Friday, October 14, 2016 08:44 - CONCLUSION: Normal examination. Moris Orourke MD Objective Remarks GENERAL: Well-nourished, well-developed pleasant female patient in [facility]. SKIN: Warm and dry. No rash. HEENT: Normocephalic. Atraumatic.Pupils equal and round. Mucous membranes pink and moist. NECK: Supple. Trachea midline. CARDIOVASCULAR: Regular rate and rhythm. S1, S2 noted. Grade 2 systolic murmur appreciated. RESPIRATORY: No accessory muscle use. Clear to auscultation. Breath sounds equal bilaterally. GASTROINTESTINAL: Abdomen soft, non-tender, nondistended. Normoactive bowel sounds x4. MUSCULOSKELETAL: No obvious deformities. Extremities without clubbing, cyanosis , or edema. No reproducible chest pain to palpation. NEUROLOGICAL: Awake and alert. No obvious cranial nerve deficits. Motor grossly within normal limits. Normal speech. PSYCHIATRIC: Appropriate mood and affect; insight and judgment normal. Medications and IVs Current Medications Medications (Trade) Dose Ordered Sig/Leonardo Route Start Time Stop Time Status Last Admin (Protonix) 40 mg DAILY PO 10/14/16 12:00 10/18/16 08:38 (Tylenol) 500 mg Q4H PRN PO 10/14/16 12:00 ([place] 7.5-325 Mg) 1 tab Q4H PRN PO 10/14/16 12:00 7/8/17 18:55 (Zofran Inj) 4 mg Q6H PRN IV 10/14/16 12:00 (Xanax) 0.25 mg Q8H PRN PO 10/14/16 12:00 (Lipitor) 10 mg HS PO 10/14/16 21:00 10/17/16 21:57 (Aspirin) 325 mg DAILY PO 10/15/16 09:00 10/18/16 08:38 (Catapres) 0.1 mg Q4H PRN PO 10/14/16 14:45 (Lopressor) 12.5 mg Q12HR PO 10/15/16 15:00 10/17/16 21:00 (Imdur) 30 mg DAILY@07 PO 10/16/16 07:00 10/18/16 05:53 (Pill Splitter) 1 ea UNSCH PRN OTHER 10/15/16 15:15 (Colace) 100 mg BID PO 10/16/16 21:00 10/18/16 08:38 (Nitrostat Sl) 0.4 mg Q5M PRN SL 10/16/16 17:15 (NS Flush) 2 ml BID IV FLUSH 10/17/16 21:00 10/18/16 08:38 (NS Flush) 2 ml UNSCH PRN IV FLUSH 10/17/16 16:45 A/P Problem List: (1) Chest pain ICD Code: R07.9 Status: Acute Assessment and Plan CAD Initially admitted to [facility], ACS ruled out with negative serial cardiac enzymes x4 and EKG without acute ischemic changes, does show RBBB. Nuclear stress test abnormal, showed concern for possible LAD ischemic. Patient transferred to hospitalist. Cardiology consult appreciated. LDL 93. A1c not elevated. Catheterization revealed obstructive disease in the LAD and RCA. The pt is allergic to nickel so stenting was not possible. Cardiothoracic surgery consult appreciated. - Continue aspirin and statin and beta johnson. - continue Imdur 30mg daily. - monitor on telemetry. - CABG scheduled for Sunday per CT surgery. - Physical therapy. Hypertension No hx of hypertension, not on meds, and patient reports she checks her BP at home with systolic in the 120s consistently; possibly BP elevation secondary to pain vs whitecoat hypertension. Well controlled at this time. - started on metoprolol for now. DVT Prophylaxis: teds/SCDs Discharge Planning Awaiting surgery Problem Qualifiers (1) Chest pain: Qualified Code: R07.9 - Chest pain, unspecified type Britton Craven DO Oct 18, 2016 09:33
--- NOTE | 2016-10-18 14:33 | PD.CAR.PN ---
CVT Progress Note Subjective/Hospital Course: sts data discussed with pt RISK SCORES About the STS Risk Calculator Procedure: CAB Only Risk of Mortality: 1.13% Morbidity or Mortality: 8.226% Long Length of Stay: 3.366% Short Length of Stay: 53.316% Permanent Stroke: 0.63% Prolonged Ventilation: 6.41% DSW Infection: 0.254% Renal Failure: 0.598% Reoperation: 3.985% Objective: Vital Signs Date Time Temp Pulse Resp B/P Pulse Ox O2 Delivery O2 Flow Rate FiO2 10/18/16 14:11 68 10/18/16 13:52 64 10/18/16 12:04 62 10/18/16 11:12 97.8 65 18 111/64 10/18/16 11:12 65 10/18/16 10:16 53 10/18/16 09:32 56 10/18/16 08:46 51 10/18/16 07:41 54 10/18/16 07:41 97.7 51 16 108/59 10/18/16 06:00 54 10/18/16 05:00 64 10/18/16 04:00 60 10/18/16 03:00 98.3 58 17 144/72 10/18/16 03:00 47 10/18/16 02:00 48 10/18/16 01:00 50 10/18/16 00:00 50 10/17/16 23:00 52 10/17/16 23:00 98.8 52 17 123/56 95 10/17/16 22:00 60 10/17/16 21:00 58 10/17/16 20:00 52 10/17/16 19:00 64 10/17/16 19:00 98.4 62 19 146/67 97 10/17/16 18:16 73 10/17/16 17:37 58 10/17/16 16:07 57 10/17/16 15:49 97.8 58 18 111/66 98 10/17/16 15:49 58 Result Diagram: 10/14/16 0815 10/16/16 0607 (1) Chest pain (2) CAD (coronary artery disease) (3) Unstable angina Problem Qualifiers (1) Chest pain: Qualified Code: R07.9 - Chest pain, unspecified type Nita Dupree Oct 18, 2016 14:33
--- NOTE | 2016-10-18 14:40 | PD.CAR.PN ---
CVT Progress Note Subjective/Hospital Course: 70yr / female presented to ED with chest discomfort , she thought was indigestion, stress test showed decreased perfusion in anterior region / she then underwent cardiac cath by Dr Campbell / found to have 80% mid LAD, 70% mid RCA EF 55%, she has an apparent "Jodee allergy" stenting could not be done 2/ 2 stents containing jodee PMH: HLP, arthritis 10/18 no pain during thr night , Carotid US : ok US lower ext : no DVT, adequate vein targets for surgery on sunday Objective: Vital Signs Date Time Temp Pulse Resp B/P Pulse Ox O2 Delivery O2 Flow Rate FiO2 10/18/16 14:11 68 10/18/16 13:52 64 10/18/16 12:04 62 10/18/16 11:12 97.8 65 18 111/64 10/18/16 11:12 65 10/18/16 10:16 53 10/18/16 09:32 56 10/18/16 08:46 51 10/18/16 07:41 54 10/18/16 07:41 97.7 51 16 108/59 10/18/16 06:00 54 10/18/16 05:00 64 10/18/16 04:00 60 10/18/16 03:00 98.3 58 17 144/72 10/18/16 03:00 47 10/18/16 02:00 48 10/18/16 01:00 50 10/18/16 00:00 50 10/17/16 23:00 52 10/17/16 23:00 98.8 52 17 123/56 95 10/17/16 22:00 60 10/17/16 21:00 58 10/17/16 20:00 52 10/17/16 19:00 64 10/17/16 19:00 98.4 62 19 146/67 97 10/17/16 18:16 73 10/17/16 17:37 58 10/17/16 16:07 57 10/17/16 15:49 97.8 58 18 111/66 98 10/17/16 15:49 58 Result Diagram: 10/14/16 0815 10/16/16 0607 Telemetry: NSR (1) Chest pain (2) CAD (coronary artery disease) (3) Unstable angina Plan: ASA, statin BB for surgery on sunday Problem Qualifiers (1) Chest pain: Qualified Code: R07.9 - Chest pain, unspecified type Nita Dupree Oct 18, 2016 14:40
[2016-10-18 17:50] LABS: HEMOGLOBIN A1a 1.2 %; HEMOGLOBIN A1b 0.8 %; HEMOGLOBIN Ao 84.4 %; HEMOGLOBIN F 1.7 %; HEMOGLOBIN P3 3.8 %
--- NOTE | 2016-10-18 18:13 | PD.CARD.PN ---
Subjective Subjective Remarks No events overnight No chest pain, mild anxiety Objective Medications Current Medications Medications (Trade) Dose Ordered Sig/Leonardo Route Start Time Stop Time Status Last Admin (Protonix) 40 mg DAILY PO 10/14/16 12:00 10/18/16 08:38 (Tylenol) 500 mg Q4H PRN PO 10/14/16 12:00 ([place] 7.5-325 Mg) 1 tab Q4H PRN PO 10/14/16 12:00 10/14/16 18:55 (Zofran Inj) 4 mg Q6H PRN IV 10/14/16 12:00 (Xanax) 0.25 mg Q8H PRN PO 10/14/16 12:00 (Lipitor) 10 mg HS PO 10/14/16 21:00 10/17/16 21:57 (Aspirin) 325 mg DAILY PO 10/15/16 09:00 10/18/16 08:38 (Catapres) 0.1 mg Q4H PRN PO 10/14/16 14:45 (Lopressor) 12.5 mg Q12HR PO 10/15/16 15:00 10/17/16 21:00 (Imdur) 30 mg DAILY@07 PO 10/16/16 07:00 10/18/16 05:53 (Pill Splitter) 1 ea UNSCH PRN OTHER 10/15/16 15:15 (Colace) 100 mg BID PO 10/16/16 21:00 10/18/16 08:38 (Nitrostat Sl) 0.4 mg Q5M PRN SL 10/16/16 17:15 (NS Flush) 2 ml BID IV FLUSH 10/17/16 21:00 10/18/16 08:38 (NS Flush) 2 ml UNSCH PRN IV FLUSH 10/17/16 16:45 Vital Signs / I&O Vital Signs Date Time Temp Pulse Resp B/P Pulse Ox O2 Delivery O2 Flow Rate FiO2 10/18/16 18:09 67 10/18/16 17:07 61 10/18/16 16:10 66 10/18/16 15:48 65 10/18/16 15:48 98.0 65 16 127/73 10/18/16 14:11 68 10/18/16 13:52 64 10/18/16 12:04 62 10/18/16 11:12 97.8 65 18 111/64 10/18/16 11:12 65 10/18/16 10:16 53 10/18/16 09:32 56 10/18/16 08:46 51 10/18/16 07:41 54 10/18/16 07:41 97.7 51 16 108/59 10/18/16 06:00 54 10/18/16 05:00 64 10/18/16 04:00 60 10/18/16 03:00 98.3 58 17 144/72 10/18/16 03:00 47 10/18/16 02:00 48 10/18/16 01:00 50 10/18/16 00:00 50 10/17/16 23:00 52 10/17/16 23:00 98.8 52 17 123/56 95 10/17/16 22:00 60 10/17/16 21:00 58 10/17/16 20:00 52 10/17/16 19:00 64 10/17/16 19:00 98.4 62 19 146/67 97 10/17/16 18:16 73 I/O 10/17/16 10/17/16 10/17/16 10/18/16 10/18/16 10/18/16 07:00 15:00 23:00 07:00 15:00 23:00 Intake Total 1220 ml 720 ml 980 ml 960 ml Output Total 1150 ml 1000 ml 1200 ml Balance 70 ml -280 ml -220 ml 960 ml Intake Oral 720 ml 720 ml 980 ml 960 ml IV Total 500 ml Output Urine Total 1150 ml 1000 ml 1200 ml # Voids 4 # Bowel Movements 1 1 Physical Exam GENERAL: NAD, AAOx3 SKIN: Warm and dry. HEAD: Atraumatic. Normocephalic. EYES: Pupils equal and round. No scleral icterus. No injection or drainage. ENT: No nasal bleeding or discharge. Mucous membranes pink and moist. NECK: Trachea midline. No JVD. CARDIOVASCULAR: Regular rate and rhythm. RESPIRATORY: No accessory muscle use. Clear to auscultation. Breath sounds equal bilaterally. GASTROINTESTINAL: Abdomen soft, non-tender, nondistended. Hepatic and splenic margins not palpable. MUSCULOSKELETAL: Extremities without clubbing, cyanosis, or edema. No obvious deformities. Right radial no hematoma, neurovascularly intact distally NEUROLOGICAL: Awake and alert. No obvious cranial nerve deficits. Motor grossly within normal limits. Five out of 5 muscle strength in the arms and legs. Normal speech. PSYCHIATRIC: Appropriate mood and affect; insight and judgment normal. Laboratory Laboratory Tests Test 10/17/16 10/17/16 10/18/16 18:35 20:20 06:10 Nasal Screen MRSA (PCR) MRSA NOT DETECTED Urine Color LIGHT-YELLOW Urine Turbidity CLEAR Urine pH 6.0 Urine Specific [place] 1.009 Urine Protein NEG mg/dL Urine Glucose (UA) NEG mg/dL Urine Ketones NEG mg/dL Urine Occult Blood NEG Urine Nitrite NEG Urine Bilirubin NEG Urine Urobilinogen LESS THAN 2.0 MG/DL Urine Leukocyte Esterase NEG Urine RBC LESS THAN 1 /hpf Urine WBC 2 /hpf Microscopic Urinalysis Comment CULT NOT INDICATED Hemoglobin A1c 5.6 % Assessment and Plan Problem List: (1) Chest pain (2) CAD (coronary artery disease) (3) Unstable angina Assessment and Plan 1) Multi-vessel CAD with mid LAD and RCA 2) 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
[2016-10-18] MEDS: ATORVASTATIN 10 MG TAB PO SCH (21:58)
[2016-10-19] VITALS (23 sets, daily range): BP systolic 113–146; BP diastolic 54–79; PULSE 51–93; RESP 16–20; TEMP 97.4–98.7; O2SAT 97–100
[2016-10-19] MEDS: ISOSORBIDE MONONITRATE 30 MG TAB PO SCH (05:40)
[2016-10-19 07:24] LABS: INTERNATIONAL NORMALIZED RATIO 0.9 RATIO; PROTHROMBIN TIME - PATIENT 10.4 SEC (9.8-11.6)
[2016-10-19] MEDS: DOCUSATE SODIUM 100 MG CAP PO SCH ×2 (08:24→21:15)
[2016-10-19] MEDS: ASPIRIN 325 MG TAB PO SCH (08:24)
[2016-10-19] MEDS: METOPROLOL TARTRATE 25 MG TAB PO SCH ×2 (08:24→21:15)
[2016-10-19] MEDS: PANTOPRAZOLE SOD 40 MG DELAYED RELEASE TAB PO SCH (08:24)
[2016-10-19] MEDS: SODIUM CHLORIDE 0.9% FLUSH 10 ML FLUSH IV FLUSH SCH ×2 (08:25→21:00)
--- NOTE | 2016-10-19 11:10 | PD.CAR.PN ---
CVT Progress Note Subjective/Hospital Course: 70yr / female presented to ED with chest discomfort , she thought was indigestion, stress test showed decreased perfusion in anterior region / she then underwent cardiac cath by Dr Campbell / found to have 80% mid LAD, 70% mid RCA EF 55%, she has an apparent "Jodee allergy" stenting could not be done 2/ 2 stents containing jodee PMH: HLP, arthritis 10/18 no pain during thr night , Carotid US : ok US lower ext : no DVT, adequate vein targets for surgery on thursday 10/19 doing well, no chest pain or symptoms for surgery in am Objective: Vital Signs Date Time Temp Pulse Resp B/P Pulse Ox O2 Delivery O2 Flow Rate FiO2 10/19/16 08:00 98.1 60 16 129/66 99 10/19/16 08:00 60 10/19/16 07:28 10/19/16 06:22 60 10/19/16 05:33 76 10/19/16 04:34 60 10/19/16 03:00 54 10/19/16 03:00 97.4 59 17 146/71 99 10/19/16 02:00 53 10/19/16 01:00 51 10/19/16 00:00 52 10/18/16 23:00 54 10/18/16 23:00 97.6 53 15 122/57 98 10/18/16 22:00 60 10/18/16 21:00 64 10/18/16 20:00 66 10/18/16 19:00 98.4 63 17 144/72 99 10/18/16 19:00 63 10/18/16 18:09 67 10/18/16 17:07 61 10/18/16 16:10 66 10/18/16 15:48 65 10/18/16 15:48 98.0 65 16 127/73 10/18/16 14:11 68 10/18/16 13:52 64 10/18/16 12:04 62 10/18/16 11:12 97.8 65 18 111/64 10/18/16 11:12 65 Labs: Laboratory Tests Test 10/19/16 10/19/16 06:40 09:30 Prothrombin Time 10.4 SEC (9.8-11.6) Prothromb Time International 0.9 RATIO Ratio Blood Type AB POSITIVE AB POSITIVE Antibody Screen NEGATIVE Crossmatch Leukocyte-Reduced Red Blood Cells Blood Bank Comment Result Diagram: 10/16/16 0607 Telemetry: NSR (1) Chest pain (2) CAD (coronary artery disease) (3) Unstable angina Plan: ASA, statin BB for surgery on sunday Problem Qualifiers (1) Chest pain: Qualified Code: R07.9 - Chest pain, unspecified type Nita Dupree Oct 19, 2016 11:10
--- NOTE | 2016-10-19 13:42 | HHI.PR ---
Subjective Remarks The patient was sitting in a chair. She was anxious for surgery tomorrow morning. She had no acute complaints. She did have some chest pressure yesterday and today without has resolved. She has been working with physical therapy. Objective Vitals Vital Signs Date Time Temp Pulse Resp B/P Pulse Ox O2 Delivery O2 Flow Rate FiO2 10/19/16 12:00 65 10/19/16 12:00 98.2 80 16 117/54 97 10/19/16 11:00 72 10/19/16 10:00 64 10/19/16 09:00 68 10/19/16 08:00 98.1 60 16 129/66 99 10/19/16 08:00 60 10/19/16 07:28 10/19/16 07:00 60 10/19/16 06:22 60 10/19/16 05:33 76 10/19/16 04:34 60 10/19/16 03:00 54 10/19/16 03:00 97.4 59 17 146/71 99 10/19/16 02:00 53 10/19/16 01:00 51 10/19/16 00:00 52 10/18/16 23:00 54 10/18/16 23:00 97.6 53 15 122/57 98 10/18/16 22:00 60 10/18/16 21:00 64 10/18/16 20:00 66 10/18/16 19:00 98.4 63 17 144/72 99 10/18/16 19:00 63 10/18/16 18:09 67 10/18/16 17:07 61 10/18/16 16:10 66 10/18/16 15:48 65 10/18/16 15:48 98.0 65 16 127/73 10/18/16 14:11 68 10/18/16 13:52 64 I/O 10/18/16 10/18/16 10/18/16 10/19/16 10/19/16 10/19/16 06:59 14:59 22:59 06:59 14:59 22:59 Intake Total 980 ml 960 ml 480 ml Output Total 1200 ml 2100 ml Balance -220 ml 960 ml -1620 ml Intake Oral 980 ml 960 ml 480 ml Output Urine Total 1200 ml 2100 ml # Voids 4 # Bowel Movements 1 Result Diagram: 10/16/16 0607 Imaging Last Impressions Lower Extremity Ultrasound 10/17/16 0000 Signed Impressions: Service Date/Time: Monday, October 17, 2016 18:43 - CONCLUSION: Venous mapping as detailed above. Demetrius Long Jr., MD Carotid Artery Ultrasound 10/17/16 0000 Signed Impressions: Service Date/Time: Monday, October 17, 2016 19:16 - CONCLUSION: 1. No hemodynamically significant stenosis involving either carotid artery. 2. Antegrade flow involving both vertebral arteries. Demetrius Long Jr., MD Myocardial Perfusion Scan Nuc Med 10/15/16 0000 Signed Impressions: Service Date/Time: Saturday, October 15, 2016 09:17 - CONCLUSION: There does appear to be much better perfusion at rest and stress in the anterior wall in the LAD distribution on at least 4 consecutive images raise possibility of LAD ischemia. RISK CATEGORY: Low (<1%% Annual Mortality Rate) Moris Orourke MD Chest X-Ray 10/14/16 0806 Signed Impressions: Service Date/Time: Friday, October 14, 2016 08:44 - CONCLUSION: Normal examination. Moris Orourke MD Objective Remarks GENERAL: Well-nourished, well-developed pleasant female patient in [facility]. SKIN: Warm and dry. No rash. HEENT: Normocephalic. Atraumatic.Pupils equal and round. Mucous membranes pink and moist. NECK: Supple. Trachea midline. CARDIOVASCULAR: Regular rate and rhythm. S1, S2 noted. Grade 2 systolic murmur appreciated. RESPIRATORY: No accessory muscle use. Clear to auscultation. Breath sounds equal bilaterally. GASTROINTESTINAL: Abdomen soft, non-tender, nondistended. Normoactive bowel sounds x4. MUSCULOSKELETAL: No obvious deformities. Extremities without clubbing, cyanosis , or edema. No reproducible chest pain to palpation. NEUROLOGICAL: Awake and alert. No obvious cranial nerve deficits. Motor grossly within normal limits. Normal speech. PSYCHIATRIC: Appropriate mood and affect; insight and judgment normal. Medications and IVs Current Medications Medications (Trade) Dose Ordered Sig/Leonardo Route Start Time Stop Time Status Last Admin (Protonix) 40 mg DAILY PO 10/14/16 12:00 10/19/16 08:24 (Tylenol) 500 mg Q4H PRN PO 10/14/16 12:00 ([place] 7.5-325 Mg) 1 tab Q4H PRN PO 10/14/16 12:00 10/14/16 18:55 (Zofran Inj) 4 mg Q6H PRN IV 10/14/16 12:00 (Xanax) 0.25 mg Q8H PRN PO 10/14/16 12:00 (Lipitor) 10 mg HS PO 10/14/16 21:00 10/18/16 21:58 (Aspirin) 325 mg DAILY PO 10/15/16 09:00 10/19/16 08:24 (Catapres) 0.1 mg Q4H PRN PO 10/14/16 14:45 (Lopressor) 12.5 mg Q12HR PO 10/15/16 15:00 10/19/16 08:24 (Imdur) 30 mg DAILY@07 PO 10/16/16 07:00 10/19/16 05:40 (Pill Splitter) 1 ea UNSCH PRN OTHER 10/15/16 15:15 (Colace) 100 mg BID PO 10/16/16 21:00 10/19/16 08:24 (Nitrostat Sl) 0.4 mg Q5M PRN SL 10/16/16 17:15 (NS Flush) 2 ml BID IV FLUSH 10/17/16 21:00 10/19/16 08:25 (NS Flush) 2 ml UNSCH PRN IV FLUSH 10/17/16 16:45 A/P Problem List: (1) Chest pain ICD Code: R07.9 Status: Acute Assessment and Plan CAD Initially admitted to [facility], ACS ruled out with negative serial cardiac enzymes x4 and EKG without acute ischemic changes, does show RBBB. Nuclear stress test abnormal, showed concern for possible LAD ischemic. Patient transferred to hospitalist. Cardiology consult appreciated. LDL 93. A1c not elevated. Catheterization revealed obstructive disease in the LAD and RCA. The pt is allergic to nickel so stenting was not possible. Cardiothoracic surgery consult appreciated. - Continue aspirin and statin and beta johnson. - continue Imdur 30mg daily. - monitor on telemetry. - CABG scheduled for tomorrow morning per CT surgery. - Physical therapy. Hypertension No hx of hypertension, not on meds, and patient reports she checks her BP at home with systolic in the 120s consistently; possibly BP elevation secondary to pain vs whitecoat hypertension. Well controlled at this time. - started on metoprolol. Well controlled. DVT Prophylaxis: teds/SCDs Discharge Planning Awaiting surgery Problem Qualifiers (1) Chest pain: Qualified Code: R07.9 - Chest pain, unspecified type Britton Craven DO Oct 19, 2016 13:42
--- NOTE | 2016-10-19 16:20 | PD.CARD.PN ---
Subjective Subjective Remarks No chest pain, no shortness of breath Objective Medications Current Medications Medications (Trade) Dose Ordered Sig/Leonardo Route Start Time Stop Time Status Last Admin (Protonix) 40 mg DAILY PO 10/14/16 12:00 10/19/16 08:24 (Tylenol) 500 mg Q4H PRN PO 10/14/16 12:00 ([place] 7.5-325 Mg) 1 tab Q4H PRN PO 10/14/16 12:00 10/14/16 18:55 (Zofran Inj) 4 mg Q6H PRN IV 10/14/16 12:00 (Xanax) 0.25 mg Q8H PRN PO 10/14/16 12:00 (Lipitor) 10 mg HS PO 10/14/16 21:00 10/18/16 21:58 (Aspirin) 325 mg DAILY PO 10/15/16 09:00 10/19/16 08:24 (Catapres) 0.1 mg Q4H PRN PO 10/14/16 14:45 (Lopressor) 12.5 mg Q12HR PO 10/15/16 15:00 10/19/16 08:24 (Imdur) 30 mg DAILY@07 PO 10/16/16 07:00 10/19/16 05:40 (Pill Splitter) 1 ea UNSCH PRN OTHER 10/15/16 15:15 (Colace) 100 mg BID PO 10/16/16 21:00 10/19/16 08:24 (Nitrostat Sl) 0.4 mg Q5M PRN SL 10/16/16 17:15 (NS Flush) 2 ml BID IV FLUSH 10/17/16 21:00 10/19/16 08:25 (NS Flush) 2 ml UNSCH PRN IV FLUSH 10/17/16 16:45 Vital Signs / I&O Vital Signs Date Time Temp Pulse Resp B/P Pulse Ox O2 Delivery O2 Flow Rate FiO2 10/19/16 16:00 74 10/19/16 15:00 86 10/19/16 14:00 84 10/19/16 13:00 64 10/19/16 12:00 65 10/19/16 12:00 98.2 80 16 117/54 97 10/19/16 11:00 72 10/19/16 10:00 64 10/19/16 09:00 68 10/19/16 08:00 98.1 60 16 129/66 99 10/19/16 08:00 60 10/19/16 07:28 10/19/16 07:00 60 10/19/16 06:22 60 10/19/16 05:33 76 10/19/16 04:34 60 10/19/16 03:00 54 10/19/16 03:00 97.4 59 17 146/71 99 10/19/16 02:00 53 10/19/16 01:00 51 10/19/16 00:00 52 10/18/16 23:00 54 10/18/16 23:00 97.6 53 15 122/57 98 10/18/16 22:00 60 10/18/16 21:00 64 10/18/16 20:00 66 10/18/16 19:00 98.4 63 17 144/72 99 10/18/16 19:00 63 10/18/16 18:09 67 10/18/16 17:07 61 I/O 10/18/16 10/18/16 10/18/16 10/19/16 10/19/16 10/19/16 07:00 15:00 23:00 07:00 15:00 23:00 Intake Total 980 ml 960 ml 480 ml Output Total 1200 ml 2100 ml Balance -220 ml 960 ml -1620 ml Intake Oral 980 ml 960 ml 480 ml Output Urine Total 1200 ml 2100 ml # Voids 4 # Bowel Movements 1 Physical Exam GENERAL: NAD, AAOx3 SKIN: Warm and dry. HEAD: Atraumatic. Normocephalic. EYES: Pupils equal and round. No scleral icterus. No injection or drainage. ENT: No nasal bleeding or discharge. Mucous membranes pink and moist. NECK: Trachea midline. No JVD. CARDIOVASCULAR: Regular rate and rhythm. RESPIRATORY: No accessory muscle use. Clear to auscultation. Breath sounds equal bilaterally. GASTROINTESTINAL: Abdomen soft, non-tender, nondistended. Hepatic and splenic margins not palpable. MUSCULOSKELETAL: Extremities without clubbing, cyanosis, or edema. No obvious deformities. Right radial no hematoma, neurovascularly intact distally NEUROLOGICAL: Awake and alert. No obvious cranial nerve deficits. Motor grossly within normal limits. Five out of 5 muscle strength in the arms and legs. Normal speech. PSYCHIATRIC: Appropriate mood and affect; insight and judgment normal. Laboratory Laboratory Tests Test 10/19/16 10/19/16 06:40 09:30 Prothrombin Time 10.4 SEC Prothromb Time International 0.9 RATIO Ratio Blood Type AB POSITIVE AB POSITIVE Antibody Screen NEGATIVE Crossmatch Leukocyte-Reduced Red Blood Cells Blood Bank Comment Assessment and Plan Problem List: (1) Chest pain (2) CAD (coronary artery disease) (3) Unstable angina Assessment and Plan 1) Multi-vessel CAD with mid LAD and RCA 2) Nickel allergy (all current stent made of nickel) Discussed options with her and her , best option is CABG, if for some reason can't undergo CABG then will consider POBA although restenosis rates are high Plan CABG tomorrow morning 3) EF 50-55%, trace MR 4) Will plan follow up with Dr. Swanson on discharge (pt's sees Dr. Swanson) Problem Qualifiers (1) Chest pain: Qualified Code: R07.9 - Chest pain, unspecified type Deyvi Campbell DO Oct 19, 2016 16:19
[2016-10-19] MEDS: ATORVASTATIN 10 MG TAB PO SCH (21:15)
[2016-10-20] VITALS (15 sets, daily range): BP systolic 88–135; BP diastolic 46–66; PULSE 48–80; RESP 8–20; TEMP 97.6–99; O2SAT 95–99
[2016-10-20] MEDS ORDERED: PROTAMINE SULFATE 250 MG/25 ML VIAL IV ONE (05:00)
[2016-10-20] MEDS ORDERED: GLYCOPYRROLATE 0.2 MG/ML VIAL IV ONE (05:00)
[2016-10-20] MEDS ORDERED: AMINOCAPROIC ACID INJ 250 MG/ML 20 ML VIAL IV ONE ×2 (05:00→15:12)
[2016-10-20] MEDS ORDERED: ARTIFICIAL TEARS OPTH OINT 3.5 APPLIC/3.5 GM TUBO ONE (05:00)
[2016-10-20] MEDS ORDERED: MAGNESIUM SULFATE 1000 MG/2 ML VIAL (PED) IV ONE (05:00)
[2016-10-20] MEDS ORDERED: HEPARIN SODIUM - SQ 10,000 UNITS/ML VIAL SQ ONE (05:00)
[2016-10-20] MEDS ORDERED: PROPOFOL 1000 MG/100 ML INJ 100 ML IV ONE (05:00)
[2016-10-20] MEDS ORDERED: PHENYLEPHRINE HCL 10 MG/ML VIAL IV ONE (05:00)
[2016-10-20] MEDS ORDERED: SODIUM BICARBONATE 8.4% INJ 50 MEQ/50 ML SYR IV ONE (05:00)
[2016-10-20] MEDS ORDERED: VECURONIUM BROMIDE 10 MG VIAL IV ONE ×2 (05:00→15:13)
[2016-10-20] MEDS ORDERED: VANCOMYCIN HCL 1000 MG VIAL ONE (06:31)
[2016-10-20] MEDS ORDERED: ceFAZolin 2 GM PREMIX 50 ML ONE (06:31)
[2016-10-20] MEDS ORDERED: HEPARIN SODIUM - SQ 10,000 UNITS/ML VIAL ONE (06:31)
[2016-10-20] MEDS ORDERED: HEPARIN SODIUM - IV 10,000 UNITS/10 ML VIAL ONE (10:29)
[2016-10-20] MEDS ORDERED: POTASSIUM CHLOR 40 MEQ PREMIX 100 ML ONE (10:29)
[2016-10-20] MEDS ORDERED: DEXTROSE 50% IN WATER 50 ML SYRINGE ONE (10:30)
[2016-10-20] MEDS ORDERED: DOBUTamine PREMIX DRIP 250 ML IV SCH (10:43)
[2016-10-20] MEDS ORDERED: LACTATED RINGER'S 1000 ML INJ 500 ML IV PRN (10:43)
[2016-10-20] MEDS ORDERED: MAGNESIUM SULFATE INJ 2 GM in SODIUM CHLORIDE 0.9% INJ 100 ML IV PRN ×4 (10:45)
[2016-10-20] MEDS ORDERED: POTASSIUM CHLORIDE 20 MEQ CONTROLLED RELEASE TAB PO PRN ×2 (10:45)
[2016-10-20] MEDS ORDERED: DEXTROSE 50% IN WATER 50 ML VIAL(D50) IV PUSH PRN ×2 (10:45→16:15)
[2016-10-20] MEDS ORDERED: MORPHINE SULFATE 4 MG/ML INJ IV PRN (10:45)
[2016-10-20] MEDS ORDERED: Post-op Orders (for Pharmacy) MISC OTHER ONE (10:45)
[2016-10-20] MEDS ORDERED: RESP: ALBUTEROL 2.5 MG/IPRATROPIUM 0.5 MG NEB (PRN) NEB (10:45)
[2016-10-20] MEDS ORDERED: SODIUM CHLORIDE 0.9% FLUSH 10 ML FLUSH IV FLUSH PRN (10:45)
[2016-10-20] MEDS ORDERED: POTASSIUM CHLOR 20 MEQ PREMIX 100 ML IV PRN ×3 (10:45)
[2016-10-20] MEDS ORDERED: CALCIUM CHLORIDE INJ 1 GM in SODIUM CHLORIDE 0.9% INJ 100 ML IV PRN (10:45)
[2016-10-20] MEDS ORDERED: ACETAMINOPHEN 650 MG SUPP RECTAL PRN (10:45)
[2016-10-20] MEDS ORDERED: DOPamine INJ PREMIX 500 ML IV SCH (10:45)
[2016-10-20] MEDS ORDERED: hydrALAZINE HCL 20 MG/ML VIAL IV PRN (10:45)
[2016-10-20] MEDS ORDERED: RESP: RACEPINEPHRINE 2.25% 0.5 ML NEB NEB PRN (10:45)
[2016-10-20] MEDS ORDERED: EPINEPHrine (1:1000) INJ 4 MG in DEXTROSE 5% IN WATER INJ 246 ML IV SCH ×2 (10:45)
[2016-10-20] MEDS ORDERED: METOPROLOL TARTRATE 5 MG/5 ML VIAL IV PUSH PRN (10:45)
[2016-10-20] MEDS ORDERED: MEPERIDINE HCL 25 MG/ML VIAL IV PRN (10:45)
[2016-10-20] MEDS ORDERED: CALCIUM CHLORIDE 10% 1 GRAM/10 ML VIAL IV PRN (10:45)
[2016-10-20] MEDS ORDERED: ACETAMINOPHEN 325 MG TAB PO PRN (10:45)
--- NOTE | 2016-10-20 10:51 | PD.OP ---
cc: Connor Rabago MD; Deyvi Campbell DO Operative Report Date of Surgery: Oct 20, 2016 Preoperative Diagnosis: Postoperative Diagnosis: Procedure: 1. Urgent Off-pump Coronary Artery Bypass Grafting x 2 with Left Internal Mammary Artery (GIRALDO) to Left Anterior Descending (LAD), reverse saphenous vein graft to the Right Coronary Artery (RCA) 2. Right Leg Endoscopic Vein [place] 3. Intraoperative Vein Mapping Surgeon: Connor Rabago Manager Web Application(s): Dante Childers Operation and Findings: PREPROCEDURE DIAGNOSES 1. Severe Two Vessel Coronary Artery Disease. 2. Unstable Angina POSTPROCEDURE DIAGNOSES Same SURGICAL PROCEDURE 1. Urgent Off-pump Coronary Artery Bypass Grafting x 2 with Left Internal Mammary Artery (GIRALDO) to Left Anterior Descending (LAD), reverse saphenous vein graft to the Right Coronary Artery (RCA) 2. Right Leg Endoscopic Vein [place] 3. Intraoperative Vein Mapping. SURGEON Connor Rabago MD GETTERING OPERATOR René Childers FISHER TROT LINE ANESTHESIA General endotracheal ENTRY LEVEL RECEPTIONIST EB Gutiérrez MD PREPARATION ChloraPrep. COUNTS Needle, sponge, and instrument counts were correct. DRAINS Two 32-[place] mediastinal tubes. COMPLICATIONS None. INDICATIONS FOR PROCEDURE The patient is a 70-year-old presenting with chest pain. Patient was noted to have severe RCA and LAD coronary artery disease. The patient is being brought to the operating room for surgical revascularization therapy. PROCEDURE Patient was brought to the operating room and placed supine on the OR table. Following the induction of adequate general endotracheal anesthesia and placement of appropriate monitoring devices, intraoperative vein mapping was performed which revealed small-caliber conduit in bilateral thighs. The patient was then prepped and draped in standard sterile fashion. Next, 2500 units of intravenous heparin was given. The right greater saphenous vein was harvested endoscopically. This appeared to be a marginal but useable-caliber conduit. Simultaneously, a median sternotomy was performed and the left internal mammary artery dissected free off the posterior sternal table. The patient was systemically heparinized and anticoagulation monitored by serial ACT measurements. The internal mammary artery had good pulsatile flow in it and was a decent-caliber conduit. The pericardium was then divided in the midline, the cradle created and targets analyzed. At this point, all anastomoses were performed in a beating-heart fashion using the Maquet stabilizing system. The left internal mammary artery was anastomosed to the mid LAD (1.75 mm) in an end -to-side fashion using 7-0 Prolene. Segment of saphenous vein graft was then anastomosed to the RCA (2.0 mm) in an end-to-side fashion using 7-0 Prolene. The proximal anastomosis was then constructed to the ascending aorta in a running manner using 6-0 Prolene. All anastomotic sites were inspected and appeared to be hemostatic and patent. Protamine solution was given. Strict hemostasis was assured. The closure was undertaken. 2 chest tubes were placed. The pericardium was reapproximated in the midline. The sternum was approximated using sternal wires. The muscular and fascial layer were then closed in 3 layers. The endoscopic vein harvest site was closed in 2 layers. The patient tolerated the procedure well and was transferred to CVICU in stable condition. Connor Rabago MD Oct 20, 2016 10:51
[2016-10-20] MEDS ORDERED: MIDAZOLAM HCL 5 MG/5 ML VIAL ONE (11:42)
[2016-10-20] MEDS ORDERED: fentaNYL CITRATE 1000 MCG/20 ML VIAL ONE (11:43)
[2016-10-20] MEDS ORDERED: PHENYLEPHRINE INJ 40 MG in DEXTROSE 5% IN WATE 500 ML INJ 496 ML IV SCH ×2 (12:00)
[2016-10-20] MEDS ORDERED: DEXMEDETOMIDINE INJ 200 MCG in SODIUM CHLORIDE 0.9% INJ 50 ML IV SCH (12:00)
[2016-10-20] MEDS ORDERED: NITROGLYCERIN-DEXTROSE INJ 250 ML IV SCH (12:00)
[2016-10-20] MEDS ORDERED: CLEVIDIPINE INJ 50 ML IV SCH (12:00)
[2016-10-20] MEDS ORDERED: INSULIN REGULAR (IV INFUSION) 100 UNITS in SODIUM CHLORIDE 0.9% INJ 99 ML IV SCH (12:00)
[2016-10-20] MEDS ORDERED: ALBUMIN HUMAN 5% 12.5 GM/250 ML BOTTLE IV PRN (12:00)
--- NOTE | 2016-10-20 12:13 | PD.CARD.PN ---
Subjective Subjective Remarks Just out of the OR No vasopressors at this time, hemodynamically stable Objective Medications Current Medications Medications (Trade) Dose Ordered Sig/Leonardo Route Start Time Stop Time Status Last Admin (Tylenol) 500 mg Q4H PRN PO 10/14/16 12:00 ([place] 7.5-325 Mg) 1 tab Q4H PRN PO 10/14/16 12:00 10/14/16 18:55 (Xanax) 0.25 mg Q8H PRN PO 10/14/16 12:00 (Lipitor) 10 mg HS PO 10/14/16 21:00 10/19/16 21:15 (Catapres) 0.1 mg Q4H PRN PO 10/14/16 14:45 (Lopressor) 12.5 mg Q12HR PO 10/15/16 15:00 10/19/16 21:15 (Imdur) 30 mg DAILY@07 PO 10/16/16 07:00 10/19/16 05:40 (Pill Splitter) 1 ea UNSCH PRN OTHER 10/15/16 15:15 (Colace) 100 mg BID PO 10/16/16 21:00 10/19/16 21:15 (Nitrostat Sl) 0.4 mg Q5M PRN SL 10/16/16 17:15 (NS Flush) 2 ml BID IV FLUSH 10/20/16 10:45 Sodium Chloride 2 ml 2 ml UNSCH PRN IV FLUSH 10/20/16 10:45 Dexmedetomidine HCl 200 mcg/ Sodium Chloride 52 ml @ 0 mls/hr TITRATE IV 10/20/16 12:00 Nitroglycerin/ Dextrose 250 ml @ 0 mls/hr TITRATE IV 10/20/16 12:00 Dobutamine HCl/ Dextrose 250 ml @ 10.425 mls/ hr [id number] IV 10/20/16 10:43 Dopamine HCl/ Dextrose 500 ml @ 0 mls/hr TITRATE IV 10/20/16 10:45 Epinephrine HCl 4 mg/Dextrose 250 ml @ 0 mls/hr TITRATE IV 10/20/16 10:45 Phenylephrine HCl 40 mg/Dextrose 500 ml @ 0 mls/hr TITRATE IV 10/20/16 12:00 (Cleviprex Inj) 50 ml @ 0 mls/hr TITRATE IV 10/20/16 12:00 Albumin Human 12.5 gm 12.5 gm UNSCH PRN IV 10/20/16 12:00 Lactated Ringer's 500 ml @ 500 mls/hr Q1H PRN IV 10/20/16 10:43 (Ancef Inj/NS Inj) 100 ml @ 200 mls/hr Q8H IV 10/20/16 16:00 10/22/16 00:29 (Aspirin Chew) 81 mg DAILY PO 10/21/16 09:00 (Plavix) 75 mg DAILY PO 10/21/16 09:00 (Protonix) 40 mg DAILY@06 PO 10/21/16 06:00 (Cordarone) 200 mg Q12HR PO 10/20/16 21:00 (Tylenol) 650 mg Q4H PRN PO 10/20/16 10:45 (Tylenol Supp) 650 mg Q4H PRN RECTAL 10/20/16 10:45 (Ofirmev Inj) 1,000 mg Q6H IV 10/20/16 10:45 10/21/16 04:46 (Morphine Inj) 1 mg Q10M PRN IV 10/20/16 10:45 (Demerol Inj) 12.5 mg Q4H PRN IV 10/20/16 10:45 ([place] 5-325 Mg) 1 tab Q3H PRN PO 10/20/16 10:45 (Toradol Inj) 15 mg Q6H PRN IV PUSH 10/20/16 10:45 10/22/16 10:44 (fentaNYL INJ) 25 mcg Q1H PRN IV 10/20/16 10:45 (Zofran Inj) 4 mg Q6H PRN IV PUSH 10/20/16 10:45 (Apresoline Inj) 10 mg Q4H PRN IV 10/20/16 10:45 Metoprolol Tartrate 2.5 mg 2.5 mg Q1H PRN IV PUSH 10/20/16 10:45 Potassium Chloride 100 ml @ 50 mls/hr UNSCH PRN IV 10/20/16 10:45 Potassium Chloride 100 ml @ 50 mls/hr UNSCH PRN IV 10/20/16 10:45 Potassium Chloride 100 ml @ 50 mls/hr UNSCH PRN IV 10/20/16 10:45 Magnesium Sulfate 2 gm/Sodium Chloride 104 ml @ 100 mls/hr UNSCH PRN IV 10/20/16 10:45 Magnesium Sulfate 2 gm/Sodium Chloride 104 ml @ 50 mls/hr UNSCH PRN IV 10/20/16 10:45 (Calcium Chloride Inj/NS Inj) 110 ml @ 100 mls/hr UNSCH PRN IV 10/20/16 10:45 Calcium Chloride 0.5 gm 0.5 gm UNSCH PRN IV 10/20/16 10:45 (NovoLIN R (IV INFUSION)/NS Inj) 100 ml @ 0 mls/hr TITRATE IV 10/20/16 12:00 (D50w (Vial) Inj) 50 ml UNSCH PRN IV PUSH 10/20/16 10:45 Vital Signs / I&O Vital Signs Date Time Temp Pulse Resp B/P Pulse Ox O2 Delivery O2 Flow Rate FiO2 10/20/16 11:15 98 40 10/20/16 06:00 67 10/20/16 05:00 60 10/20/16 04:00 52 10/20/16 04:00 98.2 67 20 135/66 98 10/20/16 00:00 52 10/20/16 00:00 98.5 54 20 121/64 98 10/19/16 23:00 54 10/19/16 22:00 56 10/19/16 21:00 60 10/19/16 20:00 98.2 75 20 123/72 98 10/19/16 20:00 75 10/19/16 19:00 75 10/19/16 16:00 74 10/19/16 16:00 98.7 63 18 113/63 97 10/19/16 15:00 86 10/19/16 14:00 84 10/19/16 13:00 64 I/O 10/19/16 10/19/16 10/19/16 10/20/16 10/20/16 10/20/16 06:59 14:59 22:59 06:59 14:59 22:59 Intake Total 480 ml 620 ml 420 ml Output Total 2100 ml 650 ml 900 ml Balance -1620 ml -30 ml -480 ml Intake Oral 480 ml 620 ml 420 ml Output Urine Total 2100 ml 650 ml 900 ml # Bowel Movements 1 Physical Exam GENERAL: Intubated and sedated SKIN: Warm and dry. HEAD: Atraumatic. Normocephalic. EYES: Pupils equal and round. No scleral icterus. No injection or drainage. ENT: No nasal bleeding or discharge. Mucous membranes pink and moist. NECK: Trachea midline. No JVD. CARDIOVASCULAR: Regular rate and rhythm. Mildly bradycardic. Sternotomy with wound vac RESPIRATORY: No accessory muscle use. Clear to auscultation. Breath sounds equal bilaterally. GASTROINTESTINAL: Abdomen soft, non-tender, nondistended. Hepatic and splenic margins not palpable. MUSCULOSKELETAL: Extremities without clubbing, cyanosis, or edema. No obvious deformities. Right radial no hematoma, neurovascularly intact distally NEUROLOGICAL: Intubated and sedated Assessment and Plan Problem List: (1) Chest pain (2) CAD (coronary artery disease) (3) Unstable angina (4) S/P CABG x 2 Assessment and Plan 1) MVCAD s/p CABGx2 POD #0 GIRALDO to LDA SVG to RCA 2) Hemodynamically stable 3) EF 50-55%, trace MR pre-operatively 4) ASA/Plavix.BB/Statin/Amio 5) Upon discharge will follow up with Dr. Swanson as sees him 6) If problems over the weekend, please call coverage team Problem Qualifiers (1) Chest pain: Qualified Code: R07.9 - Chest pain, unspecified type Deyvi Campbell DO Oct 20, 2016 12:12
--- NOTE | 2016-10-20 12:31 | RADRPT ---
EXAM DATE/TIME: 10/20/2016 11:40 [facility] COMPARISON: CHEST SINGLE AP, October 14, 2016, 8:44. INDICATIONS : S/P CABG. MEDICAL HISTORY : Hypercholesterolemia. SURGICAL HISTORY : Tubal ligation. ENCOUNTER: Subsequent ACUITY: 1 week PAIN SCORE: Non-responsive. LOCATION: Bilateral chest FINDINGS: The lungs are clear without infiltrate, nodule, or mass. There is no appreciable pleural effusion fo r technique. Heart and mediastinum are unremarkable. Chest tube is present on the right side. Chest tube is present on the left side. ET tube is present with tip overlapping approximately 4 cm above th e chayo. NG tube is present with tip in the stomach. Mediastinal drainage tube is in place. CONCLUSION: No acute cardiopulmonary disease. Richi Rodrigues MD on October 20, 2016 at 12:28 Board Certified Radiologist. This report was verified electronically.
[2016-10-20] MEDS: ACETAMINOPHEN 1000 MG/100 ML VIAL IV SCH ×3 (12:50→22:45)
[2016-10-20] MEDS ORDERED: PROPOFOL 500 MG/50 ML BTL IV ONE (15:13)
[2016-10-20] MEDS ORDERED: SODIUM CHLORIDE 0.9% INJ 100 ML IV ONE (15:13)
[2016-10-20] MEDS ORDERED: LACTATED RINGER'S 1000 ML INJ 1,000 ML IV ONE (15:13)
[2016-10-20] MEDS ORDERED: SODIUM CHLOR 0.9% 1000 ML INJ 1,000 ML IV ONE (15:14)
[2016-10-20] MEDS ORDERED: SODIUM CHLOR 0.9% 250 ML INJ 250 ML IV ONE (15:14)
[2016-10-20] MEDS: ONDANSETRON HCL 4 MG/2 ML VIAL IV PUSH PRN (15:48)
[2016-10-20] MEDS: LOW DOSE INSULIN NOVOLOG SUPPLEMENTAL SCALE SQ SCH ×2 (16:00→20:00)
[2016-10-20] MEDS ORDERED: PLEASE DISCONTINUE PREVIOUS SUPPLEMENTAL SCALE INSULIN ORDERS ONE (16:15)
[2016-10-20] MEDS ORDERED: GLUCAGON 1 MG/ML VIAL OTHER PRN (16:15)
[2016-10-20] MEDS: RESP: ALBUTEROL 2.5 MG/IPRATROPIUM 0.5 MG NEB (SCH) NEB ×2 (17:08→21:20)
[2016-10-20] MEDS: KETOROLAC TROMETHAMINE 30 MG/ML (IVP) VIAL IV PUSH PRN (20:54)
[2016-10-20] MEDS: ATORVASTATIN 10 MG TAB PO SCH (20:54)
[2016-10-20] MEDS: ACETAMINOPHEN/HYDROcodone 325 MG/7.5 MG TAB PO PRN (20:56)
[2016-10-20] MEDS: DOCUSATE SODIUM 100 MG CAP PO SCH (20:56)
[2016-10-20] MEDS: AMIODARONE 200 MG TAB PO SCH (20:57)
[2016-10-20] MEDS: METOPROLOL TARTRATE 25 MG TAB PO SCH (20:57)
[2016-10-20] MEDS: SODIUM CHLORIDE 0.9% FLUSH 10 ML FLUSH IV FLUSH SCH (20:59)
[2016-10-21] VITALS (19 sets, daily range): BP systolic 99–140; BP diastolic 45–65; PULSE 51–84; RESP 16–20; TEMP 98.1–99.2; O2SAT 93–99
[2016-10-21] MEDS: ACETAMINOPHEN/HYDROcodone 325 MG/5 MG TAB PO PRN ×3 (03:30→19:48)
[2016-10-21] MEDS: LOW DOSE INSULIN NOVOLOG SUPPLEMENTAL SCALE SQ SCH ×3 (04:00→08:00)
[2016-10-21] MEDS: RESP: ALBUTEROL 2.5 MG/IPRATROPIUM 0.5 MG NEB (SCH) NEB ×3 (04:11→21:21)
[2016-10-21 04:23] LABS: HEMATOCRIT 32.8 % (35.0-46.0); MEAN CELL VOLUME 94.9 FL (80.0-100.0); MEAN CORPUSCULAR HEMOGLOBIN 33.2 PG (27.0-34.0); MEAN CORPUSCULAR HGB CONC 34.9 % (32.0-36.0); PLATELET COUNT 163 TH/MM3 (150-450); RED BLOOD COUNT 3.46 MIL/MM3 (4.00-5.30); RED CELL DISTRIBUTION WIDTH 12.6 % (11.6-17.2); REVIEW FLAG FINAL; WHITE BLOOD COUNT 10.9 TH/MM3 (4.0-11.0)
--- NOTE | 2016-10-21 04:45 | RADRPT ---
EXAM DATE/TIME: 10/21/2016 03:40 [facility] COMPARISON: CHEST SINGLE AP, October 20, 2016, 11:40. INDICATIONS : Shortness of breath, possible pulmonary disease. MEDICAL HISTORY : Hypercholesterolemia. SURGICAL HISTORY : CABG. Tubal ligation. ENCOUNTER: Subsequent ACUITY: 1 week PAIN SCORE: Non-responsive. LOCATION: Bilateral chest FINDINGS: Sternotomy wires, cardiomegaly and aortic calcification identified. Right jugular line, mediastinal t ube and left-sided chest tube again seen. No definite evidence for pneumothorax. Minimal left basilar airspace disease is stable. CONCLUSION: No significant change has occurred. Dann Duong MD on October 21, 2016 at 4:43 Board Certified Radiologist. This report was verified electronically.
[2016-10-21 04:50] LABS: BICARBONATE 26.9 MEQ/L (21.0-32.0); MAGNESIUM 1.9 MG/DL (1.5-2.5); POTASSIUM 4.2 MEQ/L (3.5-5.1)
[2016-10-21] MEDS: ISOSORBIDE MONONITRATE 30 MG TAB PO SCH ×2 (06:28→07:00)
[2016-10-21] MEDS: ACETAMINOPHEN 1000 MG/100 ML VIAL IV SCH (06:28)
[2016-10-21] MEDS: PANTOPRAZOLE SOD 40 MG DELAYED RELEASE TAB PO SCH (06:28)
[2016-10-21] MEDS: METOPROLOL TARTRATE 25 MG TAB PO SCH ×2 (08:45→21:51)
[2016-10-21] MEDS: AMIODARONE 200 MG TAB PO SCH ×2 (08:45→21:52)
[2016-10-21] MEDS: KETOROLAC TROMETHAMINE 30 MG/ML (IVP) VIAL IV PUSH PRN ×3 (08:45→21:58)
[2016-10-21] MEDS: ASPIRIN 81 MG CHEW TAB PO SCH (08:46)
[2016-10-21] MEDS: DOCUSATE SODIUM 100 MG CAP PO SCH ×2 (08:46→21:52)
[2016-10-21] MEDS: CLOPIDOGREL 75 MG TAB PO SCH (08:46)
[2016-10-21] MEDS: SODIUM CHLORIDE 0.9% FLUSH 10 ML FLUSH IV FLUSH SCH ×2 (08:47→21:00)
[2016-10-21] MEDS: ONDANSETRON HCL 4 MG/2 ML VIAL IV PUSH PRN (08:47)
--- NOTE | 2016-10-21 09:26 | PD.CAR.PN ---
CVT Progress Note Subjective/Hospital Course: 70yr / female presented to ED with chest discomfort , she thought was indigestion, stress test showed decreased perfusion in anterior region / she then underwent cardiac cath by Dr Campbell / found to have 80% mid LAD, 70% mid RCA EF 55%, she has an apparent "Jodee allergy" stenting could not be done 2/ 2 stents containing jodee PMH: HLP, arthritis 10/18 no pain during thr night , Carotid US : ok US lower ext : no DVT, adequate vein targets for surgery on thursday 10/19 doing well, no chest pain or symptoms for surgery in am 10/20 SURGICAL PROCEDURE 1. Urgent Off-pump Coronary Artery Bypass Grafting x 2 with Left Internal Mammary Artery (GIRALDO) to Left Anterior Descending (LAD), reverse saphenous vein graft to the Right Coronary Artery (RCA) 2. Right Leg Endoscopic Vein [place] 3. Intraoperative Vein Mapping. 10/21 Doing well Ambulating in hallway on RA Transfer [facility] Maintain CT. re-evaluate for D/C in am Pulmonary toiletry Objective: Vital Signs Date Time Temp Pulse Resp B/P Pulse Ox O2 Delivery O2 Flow Rate FiO2 10/21/16 08:00 20 10/21/16 07:00 98.1 55 20 111/64 93 Arterial Line 10/21/16 07:00 63 10/21/16 07:00 93 Room Air 10/21/16 03:20 99 Nasal Cannula 10/21/16 03:20 99.2 53 16 111/65 99 10/21/16 03:00 60 10/20/16 23:31 71 10/20/16 23:19 92 Nasal Cannula 10/20/16 23:19 99.0 80 16 111/55 98 10/20/16 21:21 95 21 10/20/16 20:22 99.0 79 16 115/63 97 106/52 10/20/16 20:22 97 Room Air 10/20/16 19:15 71 10/20/16 17:10 16 10/20/16 16:00 97.6 48 16 116/63 97 88/51 10/20/16 16:00 Nasal Cannula 10/20/16 15:00 50 10/20/16 12:15 99 Nasal Cannula 4.00 10/20/16 12:15 99 Nasal Cannula 4 10/20/16 12:15 40 10/20/16 12:15 98 Nasal Cannula 4.00 10/20/16 12:00 97.7 77 8 118/58 99 127/51 10/20/16 11:45 40 10/20/16 11:45 50 10/20/16 11:45 Mechanical Ventilator 10/20/16 11:30 40 10/20/16 11:30 Mechanical Ventilator 40 10/20/16 11:15 98 Mechanical Ventilator 50 10/20/16 11:15 98 40 10/20/16 11:15 97.7 48 10 120/48 98 124/46 10/20/16 11:15 50 Labs: Laboratory Tests Test 10/21/16 04:10 White Blood Count 10.9 TH/MM3 (4.0-11.0) Red Blood Count 3.46 MIL/MM3 (4.00-5.30) Hemoglobin 11.5 GM/DL (11.6-15.3) Hematocrit 32.8 % (35.0-46.0) Mean Corpuscular Volume 94.9 FL (80.0-100.0) Mean Corpuscular Hemoglobin 33.2 PG (27.0-34.0) Mean Corpuscular Hemoglobin 34.9 % Concent (32.0-36.0) Red Cell Distribution Width 12.6 % (11.6-17.2) Platelet Count 163 TH/MM3 (150-450) Mean Platelet Volume 8.2 FL (7.0-11.0) Sodium Level 141 MEQ/L (136-145) Potassium Level 4.2 MEQ/L (3.5-5.1) Chloride Level 107 MEQ/L (98-107) Carbon Dioxide Level 26.9 MEQ/L (21.0-32.0) Anion Gap 7 MEQ/L (5-15) Blood Urea Nitrogen 14 MG/DL (7-18) Creatinine 0.50 MG/DL (0.50-1.00) Estimat Glomerular Filtration 122 ML/MIN Rate (>89) Random Glucose 116 MG/DL (74-106) Calcium Level 8.3 MG/DL (8.5-10.1) Magnesium Level 1.9 MG/DL (1.5-2.5) Result Diagram: 10/21/1640910/21/16409 (1) Chest pain (2) CAD (coronary artery disease) (3) Unstable angina (4) S/P CABG x 2 Problem Qualifiers (1) Chest pain: Qualified Code: R07.9 - Chest pain, unspecified type Connor Rabago MD Oct 21, 2016 09:26
[2016-10-21] MEDS ORDERED: SOD PHOSPHATE/SOD BIPHOSPHATE (ADULT) ENEMA 133ML RECTAL PRN (09:30)
[2016-10-21] MEDS: INSULIN ASPART SUPPLEMENTAL SCALE SQ SCH ×4 (10:00→21:58)
--- NOTE | 2016-10-21 12:43 | EKG ---
Date Performed: 10/21/2016 Time Performed: 05:40:06 PTAGE: 70 years EKG: Sinus bradycardia with PAC(s) Right bundle branch block Compared to prior tracing no signif icant change Abnormal ECG PREVIOUS TRACING : 10/14/2016 17.09 DOCTOR: Junaid Maharaj Interpretating Date/Time 10/21/2016 12:40:02
[2016-10-21] MEDS: ATORVASTATIN 10 MG TAB PO SCH (21:51)
[2016-10-22] VITALS (27 sets, daily range): BP systolic 95–124; BP diastolic 51–65; PULSE 57–86; RESP 16–18; TEMP 97.4–98.8; O2SAT 94–100
[2016-10-22] MEDS: ACETAMINOPHEN/HYDROcodone 325 MG/5 MG TAB PO PRN ×5 (00:43→21:47)
[2016-10-22] MEDS: INSULIN ASPART SUPPLEMENTAL SCALE SQ SCH ×5 (01:20→21:51)
[2016-10-22] MEDS: RESP: ALBUTEROL 2.5 MG/IPRATROPIUM 0.5 MG NEB (SCH) NEB ×4 (03:25→21:53)
[2016-10-22] MEDS: KETOROLAC TROMETHAMINE 30 MG/ML (IVP) VIAL IV PUSH PRN (04:00)
[2016-10-22] MEDS: PANTOPRAZOLE SOD 40 MG DELAYED RELEASE TAB PO SCH (06:02)
[2016-10-22 06:04] LABS: BASOPHIL % 0.5 % (0.0-2.0); EOSINOPHIL # 0.1 TH/MM3 (0-0.4); EOSINOPHIL % 0.8 % (0.0-4.0); HEMATOCRIT 30.2 % (35.0-46.0); HEMO FLAGS DIFF FINAL; LYMPH % 11.2 % (9.0-44.0); MEAN CELL VOLUME 95.7 FL (80.0-100.0); MEAN CORPUSCULAR HEMOGLOBIN 32.9 PG (27.0-34.0); MEAN CORPUSCULAR HGB CONC 34.4 % (32.0-36.0); MONO % 7.2 % (0.0-8.0); NEUT % 80.3 % (16.0-70.0); PLATELET COUNT 135 TH/MM3 (150-450); RED BLOOD COUNT 3.15 MIL/MM3 (4.00-5.30); RED CELL DISTRIBUTION WIDTH 12.4 % (11.6-17.2); WHITE BLOOD COUNT 8.8 TH/MM3 (4.0-11.0)
[2016-10-22 06:32] LABS: BICARBONATE 26.3 MEQ/L (21.0-32.0); MAGNESIUM 1.9 MG/DL (1.5-2.5); POTASSIUM 4.3 MEQ/L (3.5-5.1)
[2016-10-22] MEDS: POLYETHYLENE GLYCOL 17 GM PKG PO SCH (08:48)
[2016-10-22] MEDS: METOPROLOL TARTRATE 25 MG TAB PO SCH ×2 (08:49→21:46)
[2016-10-22] MEDS: AMIODARONE 200 MG TAB PO SCH ×2 (08:49→21:46)
[2016-10-22] MEDS: ASPIRIN 81 MG CHEW TAB PO SCH (08:49)
[2016-10-22] MEDS: DOCUSATE SODIUM 100 MG CAP PO SCH ×2 (08:49→21:47)
[2016-10-22] MEDS: CLOPIDOGREL 75 MG TAB PO SCH (08:49)
[2016-10-22] MEDS: MULTIVITAMINS/MINERALS THERAPEUTIC TAB PO SCH (08:49)
[2016-10-22] MEDS: SODIUM CHLORIDE 0.9% FLUSH 10 ML FLUSH IV FLUSH SCH ×2 (08:50→21:48)
--- NOTE | 2016-10-22 09:39 | PD.CAR.PN ---
CVT Progress Note Subjective/Hospital Course: 70yr / female presented to ED with chest discomfort , she thought was indigestion, stress test showed decreased perfusion in anterior region / she then underwent cardiac cath by Dr Campbell / found to have 80% mid LAD, 70% mid RCA EF 55%, she has an apparent "Jodee allergy" stenting could not be done 2/ 2 stents containing jodee PMH: HLP, arthritis 10/18 no pain during thr night , Carotid US : ok US lower ext : no DVT, adequate vein targets for surgery on thursday 10/19 doing well, no chest pain or symptoms for surgery in am 10/20 SURGICAL PROCEDURE 1. Urgent Off-pump Coronary Artery Bypass Grafting x 2 with Left Internal Mammary Artery (GIRALDO) to Left Anterior Descending (LAD), reverse saphenous vein graft to the Right Coronary Artery (RCA) 2. Right Leg Endoscopic Vein [place] 3. Intraoperative Vein Mapping. 10/21 - POD#1 Doing well Ambulating in hallway on RA Transfer [facility]IC Maintain CT. re-evaluate for D/C in am Pulmonary toiletry 10/22 - POD#2 Doing well D/C CT tomorrow Discharge planning for Sunday with [facility] Objective: Vital Signs Date Time Temp Pulse Resp B/P Pulse Ox O2 Delivery O2 Flow Rate FiO2 10/22/16 09:12 69 10/22/16 08:19 97 Room Air 10/22/16 08:19 97.4 67 16 124/65 97 10/22/16 08:19 61 10/22/16 06:00 62 10/22/16 05:00 62 10/22/16 04:55 96 Nasal Cannula 2.00 10/22/16 04:52 86 16 117/57 95 10/22/16 04:00 82 10/22/16 03:00 59 10/22/16 02:00 58 10/22/16 01:00 66 10/22/16 00:00 80 10/22/16 00:00 86 16 95/59 94 10/21/16 23:00 68 10/21/16 23:00 94 Room Air 10/21/16 22:00 70 10/21/16 21:21 94 21 10/21/16 21:00 68 10/21/16 20:00 72 10/21/16 19:20 98.4 71 16 140/58 99 10/21/16 19:20 99 Room Air 10/21/16 19:00 84 10/21/16 18:05 83 10/21/16 17:01 62 10/21/16 16:03 62 10/21/16 15:00 96 Room Air 10/21/16 15:00 98.8 62 18 100/59 96 10/21/16 15:00 60 10/21/16 14:00 60 10/21/16 13:03 58 10/21/16 12:00 58 10/21/16 11:20 20 10/21/16 11:00 98.4 51 20 99/45 94 10/21/16 11:00 94 Room Air 10/21/16 11:00 58 10/21/16 10:16 18 10/21/16 09:41 95 21 Labs: Laboratory Tests Test 10/22/16 05:45 White Blood Count 8.8 TH/MM3 (4.0-11.0) Red Blood Count 3.15 MIL/MM3 (4.00-5.30) Hemoglobin 10.4 GM/DL (11.6-15.3) Hematocrit 30.2 % (35.0-46.0) Mean Corpuscular Volume 95.7 FL (80.0-100.0) Mean Corpuscular Hemoglobin 32.9 PG (27.0-34.0) Mean Corpuscular Hemoglobin 34.4 % Concent (32.0-36.0) Red Cell Distribution Width 12.4 % (11.6-17.2) Platelet Count 135 TH/MM3 (150-450) Mean Platelet Volume 8.1 FL (7.0-11.0) Neutrophils (%) (Auto) 80.3 % (16.0-70.0) Lymphocytes (%) (Auto) 11.2 % (9.0-44.0) Monocytes (%) (Auto) 7.2 % (0.0-8.0) Eosinophils (%) (Auto) 0.8 % (0.0-4.0) Basophils (%) (Auto) 0.5 % (0.0-2.0) Neutrophils # (Auto) 7.0 TH/MM3 (1.8-7.7) Lymphocytes # (Auto) 1.0 TH/MM3 (1.0-4.8) Monocytes # (Auto) 0.6 TH/MM3 (0-0.9) Eosinophils # (Auto) 0.1 TH/MM3 (0-0.4) Basophils # (Auto) 0.0 TH/MM3 (0-0.2) CBC Comment DIFF FINAL Differential Comment Sodium Level 140 MEQ/L (136-145) Potassium Level 4.3 MEQ/L (3.5-5.1) Chloride Level 107 MEQ/L (98-107) Carbon Dioxide Level 26.3 MEQ/L (21.0-32.0) Anion Gap 7 MEQ/L (5-15) Blood Urea Nitrogen 15 MG/DL (7-18) Creatinine 0.46 MG/DL (0.50-1.00) Estimat Glomerular Filtration 134 ML/MIN Rate (>89) Random Glucose 116 MG/DL (74-106) Calcium Level 8.8 MG/DL (8.5-10.1) Magnesium Level 1.9 MG/DL (1.5-2.5) Result Diagram: 10/22/16 0545 10/22/16 0545 (1) Chest pain (2) CAD (coronary artery disease) (3) Unstable angina (4) S/P CABG x 2 Problem Qualifiers (1) Chest pain: Qualified Code: R07.9 - Chest pain, unspecified type Connor Rabago MD Oct 22, 2016 09:39
[2016-10-22] MEDS: ONDANSETRON HCL 4 MG/2 ML VIAL IV PUSH PRN (10:59)
[2016-10-22] MEDS ORDERED: MAGNESIUM HYDROXIDE SUSP 30 ML CUP PO PRN (15:30)
[2016-10-22] MEDS: ATORVASTATIN 10 MG TAB PO SCH (21:47)
[2016-10-23] VITALS (24 sets, daily range): BP systolic 107–129; BP diastolic 52–68; PULSE 56–88; RESP 16–18; TEMP 98–98.7; O2SAT 93–99
[2016-10-23] MEDS: ACETAMINOPHEN/HYDROcodone 325 MG/5 MG TAB PO PRN ×3 (03:34→21:39)
[2016-10-23] MEDS: RESP: ALBUTEROL 2.5 MG/IPRATROPIUM 0.5 MG NEB (SCH) NEB ×4 (04:05→19:45)
[2016-10-23] MEDS: PANTOPRAZOLE SOD 40 MG DELAYED RELEASE TAB PO SCH (05:58)
[2016-10-23] MEDS: INSULIN ASPART SUPPLEMENTAL SCALE SQ SCH ×4 (05:59→21:00)
[2016-10-23 06:53] LABS: HEMATOCRIT 32.6 % (35.0-46.0); MEAN CORPUSCULAR HEMOGLOBIN 32.5 PG (27.0-34.0); MEAN CORPUSCULAR HGB CONC 33.5 % (32.0-36.0); PLATELET COUNT 160 TH/MM3 (150-450); RED BLOOD COUNT 3.36 MIL/MM3 (4.00-5.30); RED CELL DISTRIBUTION WIDTH 12.6 % (11.6-17.2); REVIEW FLAG FINAL; WHITE BLOOD COUNT 8.5 TH/MM3 (4.0-11.0)
[2016-10-23] MEDS: ONDANSETRON HCL 4 MG/2 ML VIAL IV PUSH PRN (08:00)
[2016-10-23] MEDS: AMIODARONE 200 MG TAB PO SCH ×2 (08:03→21:38)
[2016-10-23] MEDS: ASPIRIN 81 MG CHEW TAB PO SCH (08:03)
[2016-10-23] MEDS: DOCUSATE SODIUM 100 MG CAP PO SCH ×2 (08:03→21:38)
[2016-10-23] MEDS: MULTIVITAMINS/MINERALS THERAPEUTIC TAB PO SCH (08:03)
[2016-10-23] MEDS: POLYETHYLENE GLYCOL 17 GM PKG PO SCH (08:04)
[2016-10-23] MEDS: CLOPIDOGREL 75 MG TAB PO SCH (08:04)
[2016-10-23] MEDS: METOPROLOL TARTRATE 25 MG TAB PO SCH ×2 (08:04→21:00)
[2016-10-23] MEDS: SODIUM CHLORIDE 0.9% FLUSH 10 ML FLUSH IV FLUSH SCH ×2 (08:04→21:47)
--- NOTE | 2016-10-23 10:01 | PD.CARD.PN ---
Subjective Subjective Remarks No events overnight noted No chest pain, no shortness of breath Up and ambulating Objective Medications Current Medications Medications (Trade) Dose Ordered Sig/Leonardo Route Start Time Stop Time Status Last Admin (Xanax) 0.25 mg Q8H PRN PO 10/14/16 12:00 (Lipitor) 10 mg HS PO 10/14/16 21:00 10/22/16 21:47 (Lopressor) 12.5 mg Q12HR PO 10/15/16 15:00 10/23/16 08:04 (Pill Splitter) 1 ea UNSCH PRN OTHER 10/15/16 15:15 (Colace) 100 mg BID PO 10/16/16 21:00 10/23/16 08:03 (Nitrostat Sl) 0.4 mg Q5M PRN SL 10/16/16 17:15 (NS Flush) 2 ml BID IV FLUSH 10/20/16 10:45 10/23/16 08:04 (NS Flush) 2 ml UNSCH PRN IV FLUSH 10/20/16 10:45 (Aspirin Chew) 81 mg DAILY PO 10/21/16 09:00 10/23/16 08:03 (Plavix) 75 mg DAILY PO 10/21/16 09:00 10/23/16 08:04 (Protonix) 40 mg DAILY@06 PO 10/21/16 06:00 10/23/16 05:58 (Cordarone) 200 mg Q12HR PO 10/20/16 21:00 10/23/16 08:03 (Tylenol Supp) 650 mg Q4H PRN RECTAL 10/20/16 10:45 (Morphine Inj) 1 mg Q10M PRN IV 10/20/16 10:45 ([place] 5-325 Mg) 1 tab Q3H PRN PO 10/20/16 10:45 10/23/16 06:04 (fentaNYL INJ) 25 mcg Q1H PRN IV 10/20/16 10:45 10/21/16 06:30 Ondansetron HCl 4 mg 4 mg Q6H PRN IV PUSH 10/20/16 10:45 10/23/16 08:00 Potassium Chloride 100 ml @ 50 mls/hr UNSCH PRN IV 10/20/16 10:45 10/21/16 10:28 Potassium Chloride 100 ml @ 50 mls/hr UNSCH PRN IV 10/20/16 10:45 Potassium Chloride 100 ml @ 50 mls/hr UNSCH PRN IV 10/20/16 10:45 Magnesium Sulfate 2 gm/Sodium Chloride 104 ml @ 100 mls/hr UNSCH PRN IV 10/20/16 10:45 10/22/16 08:47 Magnesium Sulfate 2 gm/Sodium Chloride 104 ml @ 50 mls/hr UNSCH PRN IV 10/20/16 10:45 10/21/16 08:49 (Calcium Chloride Inj/NS Inj) 110 ml @ 100 mls/hr UNSCH PRN IV 10/20/16 10:45 (Calcium Chloride Inj) 0.5 gm UNSCH PRN IV 10/20/16 10:45 (D50w (Vial) Inj) 25 ml UNSCH PRN IV PUSH 10/20/16 16:15 (Glucagon Inj) 1 mg UNSCH PRN OTHER 10/20/16 16:15 (Theragran M Tab) 1 tab DAILY PO 10/22/16 09:00 10/23/16 08:03 (Miralax) 17 gm DAILY PO 10/22/16 09:00 10/22/16 08:48 (Fleets Enema (Adult)) 133 ml UNSCH PRN RECTAL 10/21/16 09:30 (NovoLOG SUPPLEMENTAL SCALE) 1 ACHS SQ 10/22/16 11:00 10/22/16 21:51 (Milk Of Magnesia Liq) 30 ml DAILY PRN PO 10/22/16 15:30 10/22/16 16:34 Vital Signs / I&O Vital Signs Date Time Temp Pulse Resp B/P Pulse Ox O2 Delivery O2 Flow Rate FiO2 10/23/16 07:30 61 10/23/16 07:30 99 Room Air 10/23/16 07:30 98.7 61 18 113/52 99 10/23/16 06:00 66 10/23/16 05:00 66 10/23/16 04:00 62 10/23/16 03:56 99 Room Air 10/23/16 03:56 66 18 129/67 94 10/23/16 03:00 88 10/23/16 02:00 76 10/23/16 01:00 56 10/23/16 00:00 56 10/22/16 23:30 60 18 117/59 100 10/22/16 23:00 99 Nasal Cannula 2.00 10/22/16 23:00 66 10/22/16 22:00 80 10/22/16 21:53 96 21 10/22/16 21:00 64 10/22/16 20:00 84 10/22/16 19:25 98.8 81 16 120/64 96 10/22/16 19:25 96 Room Air 10/22/16 19:00 73 10/22/16 18:01 69 10/22/16 17:26 16 10/22/16 17:01 71 10/22/16 16:13 65 10/22/16 15:15 99 Room Air 10/22/16 15:15 98.0 62 16 107/51 99 10/22/16 15:15 60 10/22/16 14:01 61 10/22/16 13:01 57 10/22/16 12:07 57 10/22/16 11:22 97.7 58 16 105/51 98 10/22/16 11:22 60 10/22/16 11:22 98 Room Air 10/22/16 10:10 59 I/O 10/22/16 10/22/16 10/22/16 10/23/16 10/23/16 10/23/16 07:00 15:00 23:00 07:00 15:00 23:00 Intake Total 520 ml 750 ml 420 ml Output Total 810 ml 680 ml 550 ml Balance -290 ml 70 ml -130 ml Intake Oral 420 ml 600 ml 420 ml IV Total 100 ml 150 ml 0 ml Output Urine Total 650 ml 600 ml 500 ml Chest Tube Drainage Total 160 ml 80 ml 50 ml # Bowel Movements 0 0 1 Physical Exam GENERAL: NAD, AAOx3 SKIN: Warm and dry. HEAD: Atraumatic. Normocephalic. EYES: Pupils equal and round. No scleral icterus. No injection or drainage. ENT: No nasal bleeding or discharge. Mucous membranes pink and moist. NECK: Trachea midline. No JVD. CARDIOVASCULAR: Regular rate and rhythm. Sternotomy with wound vac RESPIRATORY: No accessory muscle use. Clear to auscultation. Breath sounds equal bilaterally. GASTROINTESTINAL: Abdomen soft, non-tender, nondistended. Hepatic and splenic margins not palpable. MUSCULOSKELETAL: Extremities without clubbing, cyanosis, or edema. No obvious deformities. Right radial no hematoma, neurovascularly intact distally NEUROLOGICAL: No focal deficits Laboratory Laboratory Tests Test 10/23/16 05:00 White Blood Count 8.5 TH/MM3 Red Blood Count 3.36 MIL/MM3 Hemoglobin 10.9 GM/DL Hematocrit 32.6 % Mean Corpuscular Volume 97.0 FL Mean Corpuscular Hemoglobin 32.5 PG Mean Corpuscular Hemoglobin 33.5 % Concent Red Cell Distribution Width 12.6 % Platelet Count 160 TH/MM3 Mean Platelet Volume 8.4 FL Assessment and Plan Problem List: (1) Chest pain (2) CAD (coronary artery disease) (3) Unstable angina (4) S/P CABG x 2 Assessment and Plan 1) MVCAD s/p CABGx2 POD #3 GIRALDO to LDA SVG to RCA 2) Hemodynamically stable 3) EF 50-55%, trace MR pre-operatively 4) ASA/Plavix/BB/Statin/Amio 5) Upon discharge will follow up with Dr. Swanson as sees him 6) Chest tubes most likely out today Problem Qualifiers (1) Chest pain: Qualified Code: R07.9 - Chest pain, unspecified type Deyvi Campbell DO Oct 23, 2016 10:01
[2016-10-23] MEDS ORDERED: AMIO200T PO (11:21)
[2016-10-23] MEDS ORDERED: HYDR-3516 PO (11:21)
[2016-10-23] MEDS ORDERED: METO25TA3 PO (11:21)
[2016-10-23] MEDS ORDERED: DOCU1CAP39 PO (11:21)
[2016-10-23] MEDS ORDERED: THERM PO (11:21)
[2016-10-23] MEDS ORDERED: PLAV75TA29 PO (11:21)
--- NOTE | 2016-10-23 11:24 | HHI.FF ---
Face to Face Verification Diagnosis: (1) Chest pain (2) Unstable angina (3) CAD (coronary artery disease) (4) S/P CABG x 2 Home Health Nursing Order: Signs/symptoms of disease process Medication education-adverse effect Wound care and dressing changes Nursing assessment with vital signs Instructions: Heart and Vascular Surgery patients *Special attention to sternal dressing Mandatory frequency Assess and evaluation, 4 days in a row The next week 3X week 2 times a week for 4 weeks 1 time a week for 5 weeks Schedule Heart and Vascular patients for full 60 day certification period Initial visit Review Open Heart Surgery Discharge Instructions (Sternal precautions, Activity, Elastic hose, Incision care, Driving, Incentive spirometry, Smoking, [place], Work and other) Need Betadine to paint incision Medication reconciliation Importance of follow up care/ check on appointments Make calendar record temperature daily When to call [facility] at Home nurse, review instructions, phone list Incentive Spirometry, demonstration Visit 1- Begin discharge instruction for patient family and/ or caregiver using teach back method- Signs and symptoms of infection Disease characteristics Medicines and side effects Foods and nutrition/ appetite Infection control/ hand washing/ hygiene Visit 2- Continue teaching Discharge instructions- include additional information on smoking cessation , sternal dressing (sternal vac) Visit 3- Continue teaching- Cough and deep breathing, incision monitoring. Choose my plate Visit 4- Continue teaching- Discuss limitations Discuss how they are feeling Discuss progress toward goals Incentive spirometry Q1 hr x 10, while awake, also use acapella device hourly whole awake Sternal Breast Bone Precautions: NO pushing or pulling, ( pt must use sternal pillow to support chest with all activities and with coughing ( takes up to 3 months breast bone to heal ) All females to wear sternal bra , launder as needed Daily incision care: ok to shower daily, no tub bath. Wash all incisions with liquid dial soap, clean wash cloth to each site, rinse and pat dry. Observe for any signs of infection, such as drainage which is dark yellow, ferguson, green or foul smelling. Immediately report to the surgeon any drainage from the chest incision, or legs, and for any abnormal drainage from the chest tube sites. Notify surgeon if any temp >101.5 degrees F. When specialty dressing removed/ or if you do not have one, continue to shower daily as above, then rinse and pat incision dry and paint with betadine daily x 5 days. Allow steri strips to fall off if you have any. Avoid lotions, creams, salves, oils, etc. for the first month Please see attached forms for additional instructions regarding post Open Heart specialty wound vacuum dressings. JUAN or Prevena , Dressing to be removed by Nursing staff on _10/27/16 F/U appointment: as per DC instructions: PCP in 2 weeks, CV surgeon 2 weeks, Scarf And Anneal Operator 3-4 weeks For any questions regarding incisions/ dressing / meds / post op care or above Symptoms, Sunday 8am-5pm Heart & Vascular Surgery Office ( Dr. Rabago & Dr. Hanson), After Hours / Nights (5pm -8am) Weekends and Holidays Please call [facility] ([facility]) Charge Nurse PREVENA Single Use Negative Wound Therapy System Caregiver Instruction Sheet 1. A Prevena dressing system was applied to the chest incision during surgery , to promote wound healing. It works via a suction device (negative pressure wound therapy) to remove low to moderate levels of exudate (drainage) and infectious materials. We recommend that the device stay in place for up to seven days, from day of surgery. 2. Day of Surgery___10/20/16 Day of Removal ___10/27/16 3. The dressing should only be removed by a health outdoor emergency care technician. Please arrange removal of device to coincide with Home Health visit and or with Nursing staff at Rehab 4. If skin reddening or irritation of skin occurs, or excessive drainage, please notify the Cardiovascular Surgeons office at [phone]. 5. Light showering is permissible; however the pump should be disconnected and placed in safe location, where it will not get wet. The dressing should not be exposed to direct spray or submerged in water. No bath tub / shower only. Ensure the end of the tubing attached to the dressing is facing down so that water does not enter the top of the tube. 6. To remove Prevena dressing: press purple button to turn off device / remove the suction. Then disconnect the tubing from the pump. The fixation strips should be stretched away from the skin and the dressing lifted at one corner and peeled back until it has been fully removed. 7. After removal, it is ok to shower daily using liquid dial soap and clean wash cloth, rinse and pat dry, and leave incision open to air dry. For any concerns regarding Prevena dressing, and or wounds, please contact Carolina Sotelo, patient navigator at [phone] or notify the Cardiovascular Surgeons office at [phone]. I have seen patient Cat Anders on 10/23/16. My clinical findings support the need for the requested home health care services because: Deconditioned w/ increased weakness I certify that my clinical findings support that this patient is homebound because: Post-op weakness Nita Dupree Oct 23, 2016 11:24
[2016-10-23] MEDS ORDERED: WALKER WHEELS/F1 MIS (11:25)
--- NOTE | 2016-10-23 11:29 | PD.CAR.PN ---
CVT Progress Note Subjective/Hospital Course: 70yr / female presented to ED with chest discomfort , she thought was indigestion, stress test showed decreased perfusion in anterior region / she then underwent cardiac cath by Dr Campbell / found to have 80% mid LAD, 70% mid RCA EF 55%, she has an apparent "Jodee allergy" stenting could not be done 2/ 2 stents containing jodee PMH: HLP, arthritis 10/18 no pain during thr night , Carotid US : ok US lower ext : no DVT, adequate vein targets for surgery on thursday 10/19 doing well, no chest pain or symptoms for surgery in am 10/20 SURGICAL PROCEDURE 1. Urgent Off-pump Coronary Artery Bypass Grafting x 2 with Left Internal Mammary Artery (GIRALDO) to Left Anterior Descending (LAD), reverse saphenous vein graft to the Right Coronary Artery (RCA) 2. Right Leg Endoscopic Vein [place] 3. Intraoperative Vein Mapping. 10/21 - POD#1 Doing well Ambulating in hallway on RA Transfer [facility] Maintain CT. re-evaluate for D/C in am Pulmonary toiletry 10/22 - POD#2 Doing well D/C CT tomorrow Discharge planning for Sunday with [facility] 10/23 chest tube dc without difficulty on room air pain controlled eval for dc home in am Objective: GENERAL: SKIN: Warm and dry.prevena to chest , incision intact to leg HEAD: Normocephalic. EYES: No scleral icterus. No injection or drainage. NECK: Supple, trachea midline. No JVD or lymphadenopathy. CARDIOVASCULAR: Regular rate and rhythm without murmurs, gallops, or rubs. RESPIRATORY: Breath sounds equal bilaterally. No accessory muscle use. GASTROINTESTINAL: Abdomen soft, non-tender, nondistended. MUSCULOSKELETAL: No cyanosis, or edema. BACK: Nontender without obvious deformity. No CVA tenderness. Vital Signs Date Time Temp Pulse Resp B/P Pulse Ox O2 Delivery O2 Flow Rate FiO2 10/23/16 10:16 96 10/23/16 07:30 61 10/23/16 07:30 99 Room Air 10/23/16 07:30 98.7 61 18 113/52 99 10/23/16 06:00 66 10/23/16 05:00 66 10/23/16 04:00 62 10/23/16 03:56 99 Room Air 10/23/16 03:56 66 18 129/67 94 10/23/16 03:00 88 10/23/16 02:00 76 10/23/16 01:00 56 10/23/16 00:00 56 10/22/16 23:30 60 18 117/59 100 10/22/16 23:00 99 Nasal Cannula 2.00 10/22/16 23:00 66 10/22/16 22:00 80 10/22/16 21:53 96 21 10/22/16 21:00 64 10/22/16 20:00 84 10/22/16 19:25 98.8 81 16 120/64 96 10/22/16 19:25 96 Room Air 10/22/16 19:00 73 10/22/16 18:01 69 10/22/16 17:26 16 10/22/16 17:01 71 10/22/16 16:13 65 10/22/16 15:15 99 Room Air 10/22/16 15:15 98.0 62 16 107/51 99 10/22/16 15:15 60 10/22/16 14:01 61 10/22/16 13:01 57 10/22/16 12:07 57 Labs: Laboratory Tests Test 10/23/16 05:00 White Blood Count 8.5 TH/MM3 (4.0-11.0) Red Blood Count 3.36 MIL/MM3 (4.00-5.30) Hemoglobin 10.9 GM/DL (11.6-15.3) Hematocrit 32.6 % (35.0-46.0) Mean Corpuscular Volume 97.0 FL (80.0-100.0) Mean Corpuscular Hemoglobin 32.5 PG (27.0-34.0) Mean Corpuscular Hemoglobin 33.5 % Concent (32.0-36.0) Red Cell Distribution Width 12.6 % (11.6-17.2) Platelet Count 160 TH/MM3 (150-450) Mean Platelet Volume 8.4 FL (7.0-11.0) Result Diagram: 10/23/16 0500 10/22/16 0545 Telemetry: NSR (1) Chest pain (2) CAD (coronary artery disease) (3) Unstable angina (4) S/P CABG x 2 Plan: ASA, stain BB , plavix pulm toileting OOB ambulate eval for dc in am Problem Qualifiers (1) Chest pain: Qualified Code: R07.9 - Chest pain, unspecified type Nita Dupree Oct 23, 2016 11:29
[2016-10-23] MEDS: ATORVASTATIN 10 MG TAB PO SCH (21:37)
[2016-10-24] VITALS (11 sets, daily range): BP systolic 120–148; BP diastolic 66–67; PULSE 52–74; RESP 16; TEMP 98.8; O2SAT 97–99
[2016-10-24] MEDS: PANTOPRAZOLE SOD 40 MG DELAYED RELEASE TAB PO SCH (05:50)
[2016-10-24] MEDS: INSULIN ASPART SUPPLEMENTAL SCALE SQ SCH (06:21)
--- NOTE | 2016-10-24 06:40 | RADRPT ---
EXAM DATE/TIME: 10/24/2016 05:42 [place] COMPARISON: CHEST SINGLE AP, October 21, 2016, 3:40. INDICATIONS : Chest tube removal. MEDICAL HISTORY : Hypercholesterolemia. SURGICAL HISTORY : CABG. Tubal ligation. ENCOUNTER: Subsequent ACUITY: 1 week PAIN SCORE: Non-responsive. LOCATION: Bilateral chest FINDINGS: The left chest tube has been. There is no pneumothorax. There is some platelike areas of atelectasis in the left lower lung. The right lung is grossly clear. The heart size is stable. No definite pleura l effusions. CONCLUSION: No evidence of pneumothorax. Shlomo Correia MD on October 24, 2016 at 6:38 Board Certified Radiologist. This report was verified electronically.
[2016-10-24] MEDS: RESP: ALBUTEROL 2.5 MG/IPRATROPIUM 0.5 MG NEB (SCH) NEB (09:26)
[2016-10-24] MEDS: MULTIVITAMINS/MINERALS THERAPEUTIC TAB PO SCH (09:51)
[2016-10-24] MEDS: SODIUM CHLORIDE 0.9% FLUSH 10 ML FLUSH IV FLUSH SCH (09:51)
[2016-10-24] MEDS: METOPROLOL TARTRATE 25 MG TAB PO SCH (09:51)
[2016-10-24] MEDS: DOCUSATE SODIUM 100 MG CAP PO SCH (09:51)
[2016-10-24] MEDS: AMIODARONE 200 MG TAB PO SCH (09:51)
[2016-10-24] MEDS: ASPIRIN 81 MG CHEW TAB PO SCH (09:51)
[2016-10-24] MEDS: POLYETHYLENE GLYCOL 17 GM PKG PO SCH (09:51)
[2016-10-24] MEDS: CLOPIDOGREL 75 MG TAB PO SCH (09:51)
--- NOTE | 2016-10-24 10:01 | RSPPFT ---
DATE OF PROCEDURE: 10/18/16 COMMENTS: The forced vital capacity, FEV1, FEV1/FVC ratio and FEF 25-75 are all normal. IMPRESSION: This is a normal spirometry.
--- NOTE | 2016-10-24 10:13 | HHI.DS ---
Discharge Summary Admission Date Oct 17, 2016 at 08:39 Discharge Date: Oct 24, 2016 Admitting Diagnosis chest pain (1) Chest pain (2) Unstable angina Diagnosis: Principal (3) CAD (coronary artery disease) Diagnosis: [place] (4) S/P CABG x 2 Diagnosis: Secondary Procedures . Urgent Off-pump Coronary Artery Bypass Grafting x 2 with Left Internal Mammary Artery (GIRALDO) to Left Anterior Descending (LAD), reverse saphenous vein graft to the Right Coronary Artery (RCA) 2. Right Leg Endoscopic Vein [place] 3. Intraoperative Vein Mapping 10/20 Brief History 70yr / female presented to ED with chest discomfort , she thought was indigestion, stress test showed decreased perfusion in anterior region / she then underwent cardiac cath by Dr Campbell / found to have 80% mid LAD, 70% mid RCA EF 55%, she has an apparent "Eitan allergy" stenting could not be done 2/ 2 stents containing eitan PMH: HLP, arthritis CBC/BMP: 10/23/16 0500 10/22/16 0545 Significant Findings Laboratory Tests Test 10/22/16 10/23/16 05:45 05:00 Red Blood Count 3.15 MIL/MM3 3.36 MIL/MM3 (4.00-5.30) (4.00-5.30) Hemoglobin 10.4 GM/DL 10.9 GM/DL (11.6-15.3) (11.6-15.3) Hematocrit 30.2 % 32.6 % (35.0-46.0) (35.0-46.0) Platelet Count 135 TH/MM3 (150-450) Neutrophils (%) (Auto) 80.3 % (16.0-70.0) Creatinine 0.46 MG/DL (0.50-1.00) Random Glucose 116 MG/DL (74-106) Imaging Last Impressions Chest X-Ray 10/24/16 0600 Signed Impressions: Service Date/Time: Monday, October 24, 2016 05:42 - CONCLUSION: No evidence of pneumothorax. Shlomo Correia MD Lower Extremity Ultrasound 10/17/16 0000 Signed Impressions: Service Date/Time: Monday, October 17, 2016 18:43 - CONCLUSION: Venous mapping as detailed above. Demetrius Long Jr., MD Carotid Artery Ultrasound 10/17/16 0000 Signed Impressions: Service Date/Time: Monday, October 17, 2016 19:16 - CONCLUSION: 1. No hemodynamically significant stenosis involving either carotid artery. 2. Antegrade flow involving both vertebral arteries. Demetrius Long Jr., MD Myocardial Perfusion Scan Nuc Med 10/15/16 0000 Signed Impressions: Service Date/Time: Saturday, October 15, 2016 09:17 - CONCLUSION: There does appear to be much better perfusion at rest and stress in the anterior wall in the LAD distribution on at least 4 consecutive images raise possibility of LAD ischemia. RISK CATEGORY: Low (<1%% Annual Mortality Rate) Moris Orourke MD PE at Discharge GENERAL: SKIN: Warm and dry. incision intact and well approximated to chest HEAD: Normocephalic. EYES: No scleral icterus. No injection or drainage. NECK: Supple, trachea midline. No JVD or lymphadenopathy. CARDIOVASCULAR: Regular rate and rhythm without murmurs, gallops, or rubs. RESPIRATORY: Breath sounds equal bilaterally. No accessory muscle use. GASTROINTESTINAL: Abdomen soft, non-tender, nondistended. MUSCULOSKELETAL: No cyanosis, or edema. BACK: Nontender without obvious deformity. No CVA tenderness. Hospital Course 10/18 no pain during thr night , Carotid US : ok US lower ext : no DVT, adequate vein targets for surgery on thursday 10/19 doing well, no chest pain or symptoms for surgery in am 10/20 SURGICAL PROCEDURE 1. Urgent Off-pump Coronary Artery Bypass Grafting x 2 with Left Internal Mammary Artery (GIRALDO) to Left Anterior Descending (LAD), reverse saphenous vein graft to the Right Coronary Artery (RCA) 2. Right Leg Endoscopic Vein [place] 3. Intraoperative Vein Mapping. 10/21 - POD#1 Doing well Ambulating in hallway on RA Transfer [facility] Maintain CT. re-evaluate for D/C in am Pulmonary toiletry 10/22 - POD#2 Doing well D/C CT tomorrow Discharge planning for Sunday with [facility] 10/23 chest tube dc without difficulty on room air pain controlled eval for dc home in am Discharge Disposition: Disch w/ Home Health Serv Discharge Instructions DIET: Follow Instructions for: Heart Healthy Diet Activities you can perform: Full Weight Bearing, Shower Only-No Bath Activities to avoid: Driving Additional Activity Instructio: no lifting > 8lbs or gallon of milk Follow up Referrals: Appointment for Follow Up Cardiology PCP Follow-up New Medications: Walker with Front Wheels (Walker with Front Wheels) 1 Mis Mis 1 EA .ROUTE DIRECTED #1 Ref 0 EA Amiodarone (Amiodarone) 200 Mg Tab 200 MG PO Q12HR heart rhythm #28 Ref 0 TAB Clopidogrel (Plavix) 75 Mg Tab 75 MG PO DAILY Blood Clot Prevention #30 Ref 2 TAB Docusate Sodium (Dok) 100 Mg Cap 100 MG PO BID Constipation #60 Ref 0 CAP Hydrocodone-Acetaminophen (Hydrocodone-Acetaminophen) 5-325 mg Tab 1 TAB PO Q4HR PRN PAIN SCALE 1 TO 5 #40 Ref 0 TAB Metoprolol Tartrate (Metoprolol Tartrate) 25 Mg Tab 12.5 MG PO Q12HR Blood Pressure Management #60 Ref 2 TAB Multiple Vitamins W/ Minerals (Thera M Plus) 1 Tab 1 TAB PO DAILY multi vitamin #30 Ref 2 TAB Continued Medications: Aspirin (Aspirin Low Dose) 81 Mg Chew 81 MG PO HS Ref 0 TAB Biotin (Biotin) 10 Mg Tab 10 MG PO HS Nutritional Supplement #1 Ref 0 BOTTLE Black Cohosh Extract (Black Cohosh) 40 Mg Cap 80 MG PO DAILY #1 BOTTLE Chlorpheniramine Maleate (Chlortabs) 4 Mg Tablet 2 MG PO DAILY Cholecalciferol (Vitamin D3) 5,000 Unit Cap 5000 UNITS PO HS Nutritional Supplement #1 Ref 0 BOTTLE Coenzyme Q10 (Ubidecarenone) (Co Q 10) 100 Mg Cap 200 MG PO HS Flaxseed (Linseed) (Flaxseed Oil) 1,000 Mg Cap 1200 MG PO HS Glucosamine Sulfate (Glucosamine Sulfate) 1,000 Mg Tab 1000 MG PO BID TAB [place]-3 Fatty Acids (Fish Oil 1200 mg) 1 Cap Cap 1200 MG PO BID Rosuvastatin (Crestor) 5 Mg Tab 5 MG PO HS Cholesterol Management #30 Ref 0 TAB Soy Isoflavone (Soy Isoflavones) 100 Mg Cap 80 MG PO DAILY Discontinued Medications: Ibuprofen (Ibuprofen) 400 Mg Tab 400 MG PO BID Arthritis Pain Ref 0 TAB Nita Dupree Oct 24, 2016 10:13
--- NOTE | 2016-10-24 11:25 | PD.CARD.PN ---
Subjective Subjective Remarks No chest pain, no shortness of breath Doing well, plan discharge today Objective Medications Current Medications Medications (Trade) Dose Ordered Sig/Leonardo Route Start Time Stop Time Status Last Admin (Xanax) 0.25 mg Q8H PRN PO 10/14/16 12:00 (Lipitor) 10 mg HS PO 10/14/16 21:00 10/23/16 21:37 (Lopressor) 12.5 mg Q12HR PO 10/15/16 15:00 10/24/16 09:51 (Pill Splitter) 1 ea UNSCH PRN OTHER 10/15/16 15:15 (Colace) 100 mg BID PO 10/16/16 21:00 10/24/16 09:51 (Nitrostat Sl) 0.4 mg Q5M PRN SL 10/16/16 17:15 (NS Flush) 2 ml BID IV FLUSH 10/20/16 10:45 10/24/16 09:51 (NS Flush) 2 ml UNSCH PRN IV FLUSH 10/20/16 10:45 (Aspirin Chew) 81 mg DAILY PO 10/21/16 09:00 10/24/16 09:51 (Plavix) 75 mg DAILY PO 10/21/16 09:00 10/24/16 09:51 (Protonix) 40 mg DAILY@06 PO 10/21/16 06:00 10/24/16 05:50 (Cordarone) 200 mg Q12HR PO 10/20/16 21:00 10/24/16 09:51 (Tylenol Supp) 650 mg Q4H PRN RECTAL 10/20/16 10:45 (Morphine Inj) 1 mg Q10M PRN IV 10/20/16 10:45 ([place] 5-325 Mg) 1 tab Q3H PRN PO 10/20/16 10:45 10/23/16 21:39 (fentaNYL INJ) 25 mcg Q1H PRN IV 10/20/16 10:45 10/21/16 06:30 Ondansetron HCl 4 mg 4 mg Q6H PRN IV PUSH 10/20/16 10:45 10/23/16 08:00 Potassium Chloride 100 ml @ 50 mls/hr UNSCH PRN IV 10/20/16 10:45 10/21/16 10:28 Potassium Chloride 100 ml @ 50 mls/hr UNSCH PRN IV 10/20/16 10:45 Potassium Chloride 100 ml @ 50 mls/hr UNSCH PRN IV 10/20/16 10:45 Magnesium Sulfate 2 gm/Sodium Chloride 104 ml @ 100 mls/hr UNSCH PRN IV 10/20/16 10:45 10/22/16 08:47 Magnesium Sulfate 2 gm/Sodium Chloride 104 ml @ 50 mls/hr UNSCH PRN IV 10/20/16 10:45 10/21/16 08:49 (Calcium Chloride Inj/NS Inj) 110 ml @ 100 mls/hr UNSCH PRN IV 10/20/16 10:45 (Calcium Chloride Inj) 0.5 gm UNSCH PRN IV 10/20/16 10:45 (D50w (Vial) Inj) 25 ml UNSCH PRN IV PUSH 10/20/16 16:15 (Glucagon Inj) 1 mg UNSCH PRN OTHER 10/20/16 16:15 (Theragran M Tab) 1 tab DAILY PO 10/22/16 09:00 10/24/16 09:51 (Miralax) 17 gm DAILY PO 10/22/16 09:00 10/24/16 09:51 (Fleets Enema (Adult)) 133 ml UNSCH PRN RECTAL 10/21/16 09:30 (NovoLOG SUPPLEMENTAL SCALE) 1 ACHS SQ 10/22/16 11:00 10/22/16 21:51 (Milk Of Magnesia Liq) 30 ml DAILY PRN PO 10/22/16 15:30 10/22/16 16:34 Vital Signs / I&O Vital Signs Date Time Temp Pulse Resp B/P Pulse Ox O2 Delivery O2 Flow Rate FiO2 10/24/16 10:30 62 10/24/16 09:28 21 10/24/16 09:00 74 10/24/16 08:00 98.8 71 16 148/66 99 10/24/16 08:00 99 Room Air 10/24/16 08:00 62 10/24/16 07:00 60 10/24/16 06:00 58 10/24/16 05:00 60 10/24/16 04:00 58 10/24/16 03:00 52 10/24/16 03:00 98.8 57 16 120/67 97 10/24/16 03:00 97 Room Air 10/24/16 02:00 54 10/24/16 01:00 56 10/24/16 00:00 60 10/23/16 23:00 62 10/23/16 23:00 95 Room Air 10/23/16 23:00 16 10/23/16 23:00 98.7 76 16 107/55 95 10/23/16 22:00 70 10/23/16 21:00 86 10/23/16 20:00 98.4 71 16 127/68 97 10/23/16 20:00 72 10/23/16 19:46 93 21 10/23/16 19:00 97 Room Air 10/23/16 19:00 64 10/23/16 15:30 98 Room Air 10/23/16 15:30 61 10/23/16 15:30 98.4 61 16 108/52 97 10/23/16 13:00 58 10/23/16 12:00 60 I/O 10/23/16 10/23/16 10/23/16 10/24/16 10/24/16 10/24/16 07:00 15:00 23:00 07:00 15:00 23:00 Intake Total 420 ml 800 ml 240 ml Output Total 550 ml 450 ml 900 ml Balance -130 ml 350 ml -660 ml Intake Oral 420 ml 800 ml 240 ml IV Total 0 ml Output Urine Total 500 ml 400 ml 900 ml Chest Tube Drainage Total 50 ml 50 ml # Voids 3 1 # Bowel Movements 1 1 0 Physical Exam GENERAL: NAD, AAOx3 SKIN: Warm and dry. HEAD: Atraumatic. Normocephalic. EYES: Pupils equal and round. No scleral icterus. No injection or drainage. ENT: No nasal bleeding or discharge. Mucous membranes pink and moist. NECK: Trachea midline. No JVD. CARDIOVASCULAR: Regular rate and rhythm. Sternotomy with wound vac RESPIRATORY: No accessory muscle use. Clear to auscultation. Breath sounds equal bilaterally. GASTROINTESTINAL: Abdomen soft, non-tender, nondistended. Hepatic and splenic margins not palpable. MUSCULOSKELETAL: Extremities without clubbing, cyanosis, or edema. No obvious deformities. Right radial no hematoma, neurovascularly intact distally NEUROLOGICAL: No focal deficits Assessment and Plan Problem List: (1) Chest pain (2) CAD (coronary artery disease) (3) Unstable angina (4) S/P CABG x 2 Assessment and Plan 1) MVCAD s/p CABGx2 POD #4 GIRALDO to LDA SVG to RCA 2) Hemodynamically stable 3) EF 50-55%, trace MR pre-operatively 4) ASA/Plavix/BB/Statin/Amio 5) Upon discharge will follow up with Dr. Swanson as sees him 6) Plan discharge today with home health care Problem Qualifiers (1) Chest pain: Qualified Code: R07.9 - Chest pain, unspecified type Deyvi Campbell DO Oct 24, 2016 11:25
== END 2016-10-24 11:55 | disposition home health service (06) | DRG 234 ==
LOC: NEPE 07:57 → NEDA 10:26 → NEPHCDU 12:20 → HCIN 10-15 16:23 → OBSVTOIN 10-17 08:39 → HCIS 10-20 07:15 → HCVR 10-20 11:45 → HCIN 10-21 12:34
PROVIDERS: ADMIT Thoracic Surgery (Cardiothoracic Vascular Surgery); ATTEND Thoracic Surgery (Cardiothoracic Vascular Surgery)
PROC: 4A023N7 Measurement of Cardiac Sampling and Pressure, Left Heart, Percutaneous Approach (ICD-10-PCS; 2016-10-16)
PROC: B2111ZZ Fluoroscopy of Multiple Coronary Arteries using Low Osmolar Contrast (ICD-10-PCS; 2016-10-16)
PROC: B2151ZZ Fluoroscopy of Left Heart using Low Osmolar Contrast (ICD-10-PCS; 2016-10-16)
PROC: 02100Z9 Bypass Coronary Artery, One Artery from Left Internal Mammary, Open Approach (ICD-10-PCS; 2016-10-20)
PROC: 06BP4ZZ Excision of Right Saphenous Vein, Percutaneous Endoscopic Approach (ICD-10-PCS; 2016-10-20)
PROC: 5A1935Z Respiratory Ventilation, Less than 24 Consecutive Hours (ICD-10-PCS; 2016-10-20)
PROC: 021009W Bypass Coronary Artery, One Artery from Aorta with Autologous Venous Tissue, Open Approach (ICD-10-PCS; principal; 2016-10-20 07:08)
DX: I25.110 Atherosclerotic heart disease of native coronary artery with unstable angina pectoris (principal); I45.10 Unspecified right bundle-branch block; I10 Essential (primary) hypertension; E78.5 Hyperlipidemia, unspecified; M54.9 Dorsalgia, unspecified; K21.9 Gastro-esophageal reflux disease without esophagitis; G89.29 Other chronic pain; M19.90 Unspecified osteoarthritis, unspecified site; Z87.891 Personal history of nicotine dependence; Z91.048 Other nonmedicinal substance allergy status; Z80.0 Family history of malignant neoplasm of digestive organs
CPT/HCPCS: 36430; 71010; 76937; 78452; 80048; 80053; 80061; 81001; 82550; 82552; 82948; 83036; 83690; 83735; 84484; 85025; 85027; 85379; 85610; 85730; 86850; 86900; 86901; 86920; 87641; 93005; 93017; 93306; 93454; 93880; 93970; 93998; 94010; 94150; 94640; 94664; 94667; 94668; A9502; C1768; C1769; C1893; G0378; J0131; J0690; J1644; J1815; J1885; J2250; J2270; J2370; J2405; J2440; J2720; J2785; J3010; J3370; J3475; J3480; J7030; J7050; J7120; P9016; P9045; Q9967

== ENCOUNTER 2017-10-18 14:55 | Inpatient (IN) ==
[2017-10-18] MEDS ORDERED: Lidocaine 1%/Epinephrine 1:100,000 Inj 20 ML Vial INFILTRATN ONE (15:07)
--- NOTE | 2017-10-18 15:16 | ED ---
HPI General Chief Complaint: Fall Stated Complaint: Fall/EFR Time Seen by Provider: 10/18/17 15:07 Source: patient Mode of arrival: EMS Limitations: no limitations History of Present Illness HPI Narrative: The patient is a 71-year-old female who presents to the emergency department via EMS, from [place], [place], after a trip and fall. The patient states she was loading her RV to take a trip to [place], [place], when she fell. The patient states she fell coming out of the RV, struck her head, possibly had a loss of consciousness. The patient does not recall EMS personnel picking her up and taken her into the house. She does note she has a laceration to the left lateral face, just lateral to the left orbit. She denies any headache, neck pain, or facial pain. She thinks her last tetanus shot was 5 years ago. The patient does take Plavix and a baby aspirin for history of CAD with subsequent CABG. The patient denies any chest pain, shortness of breath, palpitations, presyncopal symptoms, nausea, vomiting, or abdominal pain. She denies any focal deficits of the upper or lower extremities. Symptoms are moderate, exacerbated after falling. Related Data Home Medications Medication Instructions Recorded Confirmed aspirin [Aspirin Low Dose] 81 mg PO DAILY 10/18/17 10/18/17 clopidogrel [Plavix] 75 mg PO DAILY 10/18/17 10/18/17 diclofenac sodium [Voltaren] 4 g TOPICAL QID 10/18/17 10/18/17 duloxetine 30 mg PO DAILY 10/18/17 10/18/17 metoprolol tartrate 25 mg PO BID 10/18/17 10/18/17 pantoprazole 40 mg PO DAILY 10/18/17 10/18/17 rosuvastatin [Crestor] 10 mg PO DAILY 10/18/17 10/18/17 Allergies Allergy/AdvReac Type Severity Reaction Status Date / Time Sulfa (Sulfonamide Allergy Unknown Chills Verified 10/18/17 15:07 Antibiotics) NICKEL Allergy Severe Hives Uncoded 10/18/17 15:07 Review of Systems Except as stated in HPI: all other systems reviewed are negative Eyes Denies blurry vision ENT Denies facial pain, Denies headache(s) and Denies neck pain Cardiovascular Denies chest pain Respiratory Denies dyspnea Gastrointestinal Denies abdominal pain, Denies nausea and Denies vomiting Neurologic Denies numbness and Denies paresthesias [facility] Medical History Medical History Depression (Acute) GERD (gastroesophageal reflux disease) (Acute) History of deviated nasal septum (Acute) Hyperlipidemia (Acute) Hypertension (Acute) Surgical History Surgical History H/O repair of rotator cuff (Acute) H/O tubal ligation (Acute) Hx of tonsillectomy (Acute) Status post double vessel coronary artery bypass (Acute) Social History Social History Substance History: No History of Abuse Smoking Status: Former smoker How Often Do You Have a Drink Containing Alcohol: Monthly or less Recent Travel in [facility] within the Last 8 Weeks: No Exam Narrative Exam Narrative: GENERAL: Awake, alert, very pleasant 71-year-old female who appears her stated age and is in no acute respiratory distress. SKIN: Focused skin assessment warm/dry. HEAD: Patient has a left periorbital hematoma with a 3 cm laceration just lateral to the orbit that is linear. EYES: Pupils equal and round. Pupils are 4 mm bilateral and reactive. EOMs are intact. Patient is able see fingers at a distance of 2 feet without difficulty. ENT: No nasal bleeding or discharge. Mucous membranes pink and moist. Mild tenderness over the inferior lateral orbit. NECK: Trachea midline. No JVD. Cervical collar in place. No tenderness of the posterior vertebrae. CARDIOVASCULAR: Regular rate and rhythm. No murmur appreciated. Well-healed midline scar. RESPIRATORY: No accessory muscle use. Clear to auscultation. Breath sounds equal bilaterally. GASTROINTESTINAL: Abdomen soft, non-tender, nondistended. No rebound tenderness. Back: No CVA tenderness. No tenderness over the thoracic or lumbar vertebrae. MUSCULOSKELETAL: No obvious deformities. No clubbing. No cyanosis. No edema. NEUROLOGICAL: Awake and alert. No obvious cranial nerve deficits. Motor grossly within normal limits. Normal speech. Alert and oriented x4. Follows commands without difficulty. PSYCHIATRIC: Appropriate mood and affect; insight and judgment normal. Procedures Laceration Laceration 1: Site: face Side (If applicable): left Size (cm): 2.5 Description: linear Depth: simple, single layer Anesthetic used: with epi Anesthesia technique:: local infiltration Amount (mL): 3 Pre-repair:: wound explored and irrigated extensively Skin layer closed with: ethilon Size (cm): 5-0 Number of sutures:: 4 Technique:: simple, interrupted Course Consultations Consultation #1: The on-call neurosurgeon, Dr. Moreland, was paged at 4:[address] Moreland requested admission to the intensive surgical care unit under the care of the trauma surgeon. Time: 16:19 Consultation #2: The trauma surgeon was paged at 4:22 PM for admission. I discussed the patient with Dr. Murray who agrees with admission. Time: 16:22 Initial Documented Vital Signs Temperature 98 F 10/18/17 15:09 Pulse Rate 61 10/18/17 15:09 Respiratory Rate 20 10/18/17 15:09 Blood Pressure 204/88 H 10/18/17 15:09 Pulse Oximetry 100 10/18/17 15:09 Last Documented Vital Signs Temperature 98 F 10/18/17 15:09 Pulse Rate 57 L 10/18/17 15:28 Respiratory Rate 17 10/18/17 15:28 Blood Pressure 155/67 H 10/18/17 15:28 Pulse Oximetry 99 10/18/17 15:28 Critical Care Time Critical Care Time: Yes Total Critical Care Time: 40 Attestation: Aggregate critical care time was 40 minutes. Time to perform other separately billable procedures was not included in the critical care time. My time did not include minutes spent treating any other patients simultaneously or on activities that did not directly contribute to the patient's treatment. The services I provided to this patient were to treat and/or prevent clinically significant deterioration that could result in: Herniation, hemorrhage, . I provided critical care services requiring my management, as noted below: Chart data review, documentation time, medication orders and management, vital sign assessments/reviewing monitor data, ordering and reviewing lab tests, ordering and interpreting/reviewing x-rays and diagnostic studies, care of the patient and discussion of the patient with the admitting physicians. Medical Decision Making MDM Narrative Medical decision making narrative: CT of the brain, cervical spine, and facial bones was obtained. Tetanus shot was withheld as patient states she had a tetanus shot 5 years ago in [place], [place]. The laceration was sutured at bedside after being anesthetized 1% lidocaine with epinephrine using 27-gauge needle. CT the brain is positive for subarachnoid hemorrhage. CT the facial bones reveal soft tissue swelling but no fracture. CT the cervical spine reveals degenerative changes but no fracture. I discussed the patient with the trauma surgeon, Dr. Moreland, who recommends admission to the trauma service. I discussed the patient with Dr. Murray who agrees with admission. The patient will be admitted to the intensive surgical care unit. The patient will be kept n.p.o., neurochecks, and neurosurgical evaluation. I discussed the findings with the patient at bedside who is comfortable with this plan of care and disposition. Differential Diagnosis Differential Diagnosis: Differential diagnosis includes syncope, closed head injury, trip and fall, closed head injury, orbital floor fracture, orbital wall fracture, cervical fracture, abrasion, contusion. Lab Data Lab results reviewed: Yes I reviewed the patient's lab results. Result diagrams: 10/18/17 16:05 10/18/17 16:05 Lab Results 10/18/17 10/18/17 10/18/17 Range/Units 16:05 16:05 16:05 WBC 7.7 (4.0-11.0) th/mm3 RBC 4.51 (4.00-5.30) mil/mm3 Hgb 14.5 (11.6-15.3) gm/dL Hct 42.9 (35.0-46.0) % MCV 95.2 (80.0-100.0) fL MCH 32.1 (27.0-34.0) pg MCHC 33.8 (32.0-36.0) % RDW 13.2 (11.6-17.2) % Plt Count 232 (150-450) th/mm3 MPV 8.0 (7.0-11.0) fL Neut % (Auto) 77.0 H (16.0-70.0) % Lymph % (Auto) 16.4 (9.0-44.0) % [place] % (Auto) 5.3 (0.0-8.0) % Eos % (Auto) 0.7 (0.0-4.0) % Baso % (Auto) 0.6 (0.0-2.0) % Neut # (Auto) 5.9 (1.8-7.7) th/mm3 Lymph # (Auto) 1.3 (1.0-4.8) th/mm3 [place] # (Auto) 0.4 (0.0-0.9) th/mm3 Eos # (Auto) 0.1 (0.0-0.4) th/mm3 Baso # (Auto) 0.1 (0.0-0.2) th/mm3 WBC Differential . Differential Comment Auto diff final PT 10.5 (9.8-11.6) sec INR 1.0 Ratio APTT 19.1 L (24.3-30.1) sec Sodium 144 (136-145) meq/L Potassium 4.1 (3.5-5.1) meq/L Chloride 110 H (98-107) meq/L Carbon Dioxide 27.0 (21.0-32.0) meq/L Anion Gap 7 (5-15) meq/L BUN 21 H (7-18) mg/dL Creatinine 0.70 (0.50-1.00) mg/dL Estimated GFR 82 L (>89) mL/min Random Glucose 107 H (74-106) mg/dL Calcium 9.6 (8.5-10.1) mg/dL Total Bilirubin 0.6 (0.2-1.0) mg/dL AST 38 H (15-37) U/L ALT 41 (10-53) U/L Alkaline Phosphatase 40 L (45-117) U/L Total Protein 7.4 (6.4-8.2) g/dL Albumin 4.3 (3.4-5.0) g/dL Imaging Data Radiologist's impression: ITS Impressions Cervical Spine CT 10/18/17 15:07 CONCLUSION: 1. No acute bony abnormalities seen. 2. Degenerative change as described above. Face CT 10/18/17 15:07 CONCLUSION: 1. Left periorbital soft tissue swelling. 2. See the CT of the brain reported separately. 3. Carotid artery atherosclerotic calcification. Head CT 10/18/17 15:07 CONCLUSION: 1. Left frontal temporal subarachnoid hemorrhage. 2. Possible minimal right frontal subarachnoid blood. 3. No evidence of parenchymal hematoma or subdural hematoma or 4. Left periorbital soft tissue hematoma. ECG Data EKG Prior to Arrival: No Attestation: I personally reviewed and interpreted this ECG as follows: Interpretation: EKG reveals sinus bradycardia with a heart rate of 54. RSR prime in V1 with QRS of 144 ms consistent with right bundle branch block. Nonspecific T wave edges. Discharge Plan Discharge Disposition Patient Disposition: 30 Still Patient Discharge Condition Condition: Stable Discharge Details Diagnosis: Subarachnoid hemorrhage Physicians Team ED Provider: Dillon Anand Primary Care Provider: UNKNOWN, Attending Provider: Dequan Bhakta Status ED Status: Admitted Patient
--- NOTE | 2017-10-18 15:55 | CT ---
EXAM DATE: 10/18/2017 3:45 PM EDT AGE/SEX: 71 years / Female INDICATIONS: Fall today. Laceration and hematoma to left eye. CLINICAL DATA: This is the patient's initial encounter. Patient reports that signs and symptoms have been present for 1 day and indicates a pain score of 2/10. MEDICAL/SURGICAL HISTORY: None. None. RADIATION DOSE: 66.34 CTDI (mGy) COMPARISON: No prior exams available for comparison. TECHNIQUE: CT of the head without contrast. Using automated exposure control and adjustment of the mA and/or kV according to patient size, radiation dose was kept as low as reasonably achievable to ob tain optimal diagnostic quality images. DICOM format image data is available electronically for revi ew and comparison. FINDINGS: Cerebrum: Acute subarachnoid hemorrhage is identified in the left sylvian fissure and along the left frontal lobe. Very minimal hemorrhage may also present along the right frontal lobe. There is no manish dence of parenchymal hematoma. There is no evidence of mass effect or edema. No extra-axial fluid col lections are seen. Posterior Fossa: The cerebellum and brainstem are intact. The 4th ventricle is midline. The cerebe llopontine angle is unremarkable. Extracranial: Asymmetric small to moderate-sized left periorbital hematoma and soft tissue swelling is noted. The bony orbit appears intact. Skull: The calvaria is intact. No evidence of skull fracture. CONCLUSION: 1. Left frontal temporal subarachnoid hemorrhage. 2. Possible minimal right frontal subarachnoid blood. 3. No evidence of parenchymal hematoma or subdural hematoma or 4. Left periorbital soft tissue hematoma. Electronically signed by: Boston Gay MD 10/18/2017 3:54 PM EDT
--- NOTE | 2017-10-18 16:12 | CT ---
EXAM DATE: 10/18/2017 3:57 PM EDT AGE/SEX: 71 years / Female INDICATIONS: Fall today. Laceration and hematoma on left eye. CLINICAL DATA: This is the patient's initial encounter. Patient reports that signs and symptoms have been present for 1 day and indicates a pain score of 2/10. MEDICAL/SURGICAL HISTORY: None. None. RADIATION DOSE: 21.96 CTDI (mGy) COMPARISON: No prior exams available for comparison. TECHNIQUE: Contiguous images in the axial and coronal planes were obtained using helical multirow de tector technique. Using automated exposure control and adjustment of the mA and/or kV according to p atient size, radiation dose was kept as low as reasonably achievable to obtain optimal diagnostic petar lity images. DICOM format image data is available electronically for review and comparison. FINDINGS: See the CT of the brain reported separately. Orbits: The orbital and infraorbital osseous structures are intact. The retroconal structures have a normal configuration. No radiopaque foreign bodies are seen. Nasal Bone: The nasal bone and maxillary spine are intact. Zygomatic Arches: Symmetric without evidence of fracture. Sinuses: The maxillary, ethmoid, and frontal sinuses are intact. No air-fluid levels seen. Nasal Cavity: The nasal septum is intact and midline. The lacrimal ducts are intact. Soft Tissues: No radiopaque foreign bodies seen left periorbital soft tissue swelling most pronounce d laterally.. Intracranial: No intracranial air seen. Cribriform Plate: Grossly intact. CONCLUSION: 1. Left periorbital soft tissue swelling. 2. See the CT of the brain reported separately. 3. Carotid artery atherosclerotic calcification. Electronically signed by: Demetrius Long MD 10/18/2017 4:11 PM EDT
--- NOTE | 2017-10-18 16:13 | CT ---
EXAM DATE: 10/18/2017 3:53 PM EDT AGE/SEX: 71 years / Female INDICATIONS: Fall today. Laceration and hematoma to left eye. CLINICAL DATA: This is the patient's initial encounter. Patient reports that signs and symptoms have been present for 1 day and indicates a pain score of 2/10. MEDICAL/SURGICAL HISTORY: None. None. RADIATION DOSE: 15.50 CTDI (mGy) COMPARISON: No prior exams available for comparison. TECHNIQUE: Contiguous axial images were obtained using helical multirow detector technique. The vol umetric data was post-processed with multiplanar reconstruction in oblique axial, sagittal, and coron al planes. Using automated exposure control and adjustment of the mA and/or kV according to patient s ize, radiation dose was kept as low as reasonably achievable to obtain optimal diagnostic quality donna ges. DICOM format image data is available electronically for review and comparison. FINDINGS: Vertebrae: Normal vertebral body height. Alignment: Normal. No subluxation. C2-3: The bony spinal canal is normal in size. No evidence of disc bulge or herniation. The neural foramina are bilaterally patent. There is fusion at the facet joints. C3-4: The bony spinal canal is normal in size. No evidence of disc bulge or herniation. The neural foramina are bilaterally patent. There is facet hypertrophy being worse on the left. C4-5: The disc demonstrates decreased height. A significant impression on thecal sac is not seen. Th ere is mild left facet hypertrophy. There is minimal uncovertebral hypertrophy. The neural foramina a re grossly patent. C5-6: The disc demonstrates decreased height. There is minimal posterior osteophytic ridging. Signif icant stenosis is not seen. There is mild uncovertebral hypertrophy and mild left facet hypertrophy. The neural foramina are grossly patent. C6-7: The bony spinal canal is normal in size. No evidence of disc bulge or herniation. The neural foramina are bilaterally patent. There is bilateral facet hypertrophy being worse on the right. C7-T1: The bony spinal canal is normal in size. No evidence of disc bulge or herniation. The neura l foramina are bilaterally patent. There is bilateral facet hypertrophy being worse on the right. CONCLUSION: 1. No acute bony abnormalities seen. 2. Degenerative change as described above. Electronically signed by: René James MD 10/18/2017 4:12 PM EDT
[2017-10-18 16:26] LABS: Baso # (Auto) 0.1 th/mm3 (0.0-0.2); Baso % (Auto) 0.6 % (0.0-2.0); Eos # (Auto) 0.1 th/mm3 (0.0-0.4); Eos % (Auto) 0.7 % (0.0-4.0); Hematocrit 42.9 % (35.0-46.0); Hemoglobin 14.5 gm/dL (11.6-15.3); Lymph # (Auto) 1.3 th/mm3 (1.0-4.8); Lymph % (Auto) 16.4 % (9.0-44.0); Mean Corpuscular HGB Conc 33.8 % (32.0-36.0); Mean Corpuscular Hemoglobin 32.1 pg (27.0-34.0); Mean Corpuscular Volume 95.2 fL (80.0-100.0); Mono # (Auto) 0.4 th/mm3 (0.0-0.9); Mono % (Auto) 5.3 % (0.0-8.0); Neut # (Auto) 5.9 th/mm3 (1.8-7.7); Platelet Count 232 th/mm3 (150-450); Red Blood Count 4.51 mil/mm3 (4.00-5.30); Red Cell Distribution Width 13.2 % (11.6-17.2); White Blood Count 7.7 th/mm3 (4.0-11.0)
[2017-10-18 16:38] LABS: Alanine Aminotransferase 41 U/L (10-53); Albumin 4.3 g/dL (3.4-5.0); Anion Gap 7 meq/L (5-15); Aspartate Aminotransferase 38 U/L (15-37); Blood Urea Nitrogen 21 mg/dL (7-18); Calcium 9.6 mg/dL (8.5-10.1); Chloride 110 meq/L (98-107); Glomerular Filtration Rate 82 mL/min (>89); Glucose,Random 107 mg/dL (74-106); Potassium 4.1 meq/L (3.5-5.1); Sodium 144 meq/L (136-145)
[2017-10-18 16:40] LABS: Alkaline Phosphatase 40 U/L (45-117); Total Protein 7.4 g/dL (6.4-8.2)
[2017-10-18 16:41] LABS: Activated Partial Thrombo Time 19.1 sec (24.3-30.1); Prothrombin Time 10.5 sec (9.8-11.6)
--- NOTE | 2017-10-18 17:48 | P.CONNS ---
History of Present Illness Service: Neurosurgery Primary Care Provider: UNKNOWN [facility] - History History Provided By: Patient - Medical History Medical History: Medical History (Last Updated 10/18/17 @ 15:24 by Gris Villegas) Depression GERD (gastroesophageal reflux disease) History of deviated nasal septum Hyperlipidemia Hypertension - Surgical History Surgical History: Surgical History (Last Updated 10/18/17 @ 15:25 by Gris Villegas) H/O repair of rotator cuff H/O tubal ligation Hx of tonsillectomy Status post double vessel coronary artery bypass - Tobacco History Smoking Status: Former smoker - Alcohol History How Often Do You Have a Drink Containing Alcohol: Monthly or less - Substance Use History Substance History: No History of Abuse - Travel History Recent Travel in the [place] Within the Last 8 Weeks: No - Immunization History Tetanus Immunization: <5 Years Hx Influenza Vaccine This Season: No Medications and Allergies Allergies Allergy/AdvReac Type Severity Reaction Status Date / Time Sulfa (Sulfonamide Allergy Unknown Chills Verified 10/18/17 15:07 Antibiotics) NICKEL Allergy Severe Hives Uncoded 10/18/17 15:07 Home Medications Medication Instructions Recorded Confirmed Type aspirin [Aspirin Low Dose] 81 mg PO DAILY 10/18/17 10/18/17 History clopidogrel [Plavix] 75 mg PO DAILY 10/18/17 10/18/17 History diclofenac sodium [Voltaren] 4 g TOPICAL QID 10/18/17 10/18/17 History duloxetine 30 mg PO DAILY 10/18/17 10/18/17 History metoprolol tartrate 25 mg PO BID 10/18/17 10/18/17 History pantoprazole 40 mg PO DAILY 10/18/17 10/18/17 History rosuvastatin [Crestor] 10 mg PO DAILY 10/18/17 10/18/17 History Exam Vital signs: Vital Signs 10/18/17 15:09 10/18/17 15:28 Temperature 98 F Pulse Rate 61 57 L Respiratory Rate 20 17 Blood Pressure 204/88 H 155/67 H Pulse Oximetry 100 99 Intake & Output 10/17/17 10/18/17 10/18/17 18:59 06:59 18:59 Weight 68.039 kg Results - Laboratory Findings CBC and BMP: 10/18/17 16:05 10/18/17 16:05 Abnormal lab findings: Abnormal Labs 10/18/17 10/18/17 10/18/17 16:05 16:05 16:05 Neut % (Auto) 77.0 H APTT 19.1 L Chloride 110 H BUN 21 H Estimated GFR 82 L Random Glucose 107 H AST 38 H Alkaline Phosphatase 40 L
--- NOTE | 2017-10-18 19:44 | P.PNCC ---
Subjective Brief History: fell-? syncope SAH left GCS 15 on plavix -ASA Objective Vital Signs / I&O: Vital Signs 10/18/17 15:09 10/18/17 15:28 10/18/17 16:30 Temperature 98 F Pulse Rate 61 57 L 61 Respiratory Rate 20 17 19 Blood Pressure 204/88 H 155/67 H 166/74 H Pulse Oximetry 100 99 99 10/18/17 17:30 10/18/17 18:30 10/18/17 19:27 Temperature Pulse Rate 62 60 59 L Respiratory Rate 22 17 16 Blood Pressure 157/72 H 159/71 H 158/71 H Pulse Oximetry 96 97 97 Intake & Output 10/18/17 10/18/17 10/19/17 06:59 18:59 06:59 Weight 68.039 kg Result Diagrams: 10/18/17 16:05 10/18/17 16:05 Imaging: Impressions Cervical Spine CT 10/18/17 15:07 CONCLUSION: 1. No acute bony abnormalities seen. 2. Degenerative change as described above. Face CT 10/18/17 15:07 CONCLUSION: 1. Left periorbital soft tissue swelling. 2. See the CT of the brain reported separately. 3. Carotid artery atherosclerotic calcification. Head CT 10/18/17 15:07 CONCLUSION: 1. Left frontal temporal subarachnoid hemorrhage. 2. Possible minimal right frontal subarachnoid blood. 3. No evidence of parenchymal hematoma or subdural hematoma or 4. Left periorbital soft tissue hematoma. - Exam PLAN COORDINATOR: GCS 15 Hemodynamic/Cardiac: gcs 15 Pulmonary/Respiratory: stable Abdomen/GI Nutrition: soft Assessment and Plan Plan: SAH neuro checks repeat CT in AM
[2017-10-18] MEDS ORDERED: Post-op Orders (for Pharmacy) OTHER STA (19:50)
[2017-10-18] MEDS ORDERED: Bisacodyl 10 MG Supp RECTAL PRN (19:50)
--- NOTE | 2017-10-18 20:30 | MH ---
cc: Dequan Bhakta MD, Joel L MD DATE OF ADMISSION: 10/18/2017 HISTORY OF PRESENT ILLNESS: This is a 71-year-old female who was walking and tripped, fell onto her head. She states she remembers going down, but does not remember anything else until being in the ambulance. She was evaluated by the emergency room physician, found to have closed head injury. Trauma service was requested for admission. The patient complains of headache, left-sided face pain. No chest pains, no shortness of breath. No paresthesias. PAST MEDICAL HISTORY: Significant for gastric ulcers, coronary artery disease, hypercholesterolemia. PAST SURGICAL HISTORY: Significant for cardiac surgery, tubal ligation, rotator cuff surgery. SOCIAL HISTORY: The patient is a former smoker. ALLERGIES: NICKEL. FAMILY HISTORY: Noncontributory. REVIEW OF SYSTEMS: Significant for above. PHYSICAL EXAMINATION: GENERAL: The patient is lying in a stretcher in no acute distress. HEENT: She has a sutured laceration to the left periorbital region with periorbital ecchymosis. NECK: Trachea is midline without JVD. RESPIRATIONS: Clear. CARDIOVASCULAR: Regular. GASTROINTESTINAL: Soft, flat, nontender. MUSCULOSKELETAL: No deformities. NEUROLOGIC: Nonfocal. RADIOLOGICAL IMAGES: CT of the head reveals a subarachnoid hemorrhage. CT of the cervical spine: No fractures. CT of the facial bones: No fracture. ASSESSMENT AND PLAN: This is a patient status post fall with a closed head injury. She is being admitted to Intensive Surgical Care. Neurosurgery has been consulted as well as surgical critical care. We will monitor neurological status. Provide pain management. MD TRACEE Samuel/ , 08:07 PM , 08:28 PM
--- NOTE | 2017-10-18 21:01 | P.CONNS ---
History of Present Illness Service: neurosurgery Consult date: 10/18/17 Requesting Physician: Dillon Anand Reason for Consult: syncope, traumatic brain injury Primary Care Provider: UNKNOWN Chief Complaint: syncope, TBI History of Present Illness: This is a 71-year-old female who presents to the emergency department via EMS, from [place], [place], after a trip and fall. The patient states she was loading her RV to take a trip to [place], [place], when she fell. The patient states she fell coming out of the RV, struck her head, possibly had a loss of consciousness. No seizure activity reported. No tonic-clonic movements. No tongue biting. No incontinence of stool or urine. The patient does not recall EMS personnel picking her up and taken her into the house. She has a laceration to the left lateral face, just lateral to the left orbit. She denies any headache, neck pain, or facial pain. She thinks her last tetanus shot was 5 years ago. The patient does take Plavix and a baby aspirin for history of CAD with subsequent CABG. The patient denies any chest pain, shortness of breath, palpitations, presyncopal symptoms, nausea, vomiting, or abdominal pain. She denies any focal deficits of the upper or lower extremities. Symptoms are moderate, exacerbated after falling. She is moving both upper and lower extremities without any deficits. She denies any sensory loss. She denies any vision loss. She denies any nauseous or vomiting. CT of the brain was obtained. Neurosurgical consultation was requested PMFSH - History History Provided By: Patient - Medical History Medical History: Medical History (Last Reviewed 10/20/17 @ 19:33 by Darius Moreland MD) Depression GERD (gastroesophageal reflux disease) History of deviated nasal septum Hyperlipidemia Hypertension - Surgical History Surgical History: Surgical History (Last Reviewed 10/20/17 @ 19:33 by Darius Moreland MD) H/O repair of rotator cuff H/O tubal ligation Hx of tonsillectomy Status post double vessel coronary artery bypass - Tobacco History Second Hand Smoke Exposure: No Smoking Status: Former smoker - Alcohol History How Often Do You Have a Drink Containing Alcohol: Monthly or less - Substance Use History Substance History: No History of Abuse - Travel History Recent Travel in the [facility] Within the Last 8 Weeks: No - Immunization History Tetanus Immunization: <5 Years Hx Influenza Vaccine This Season: No Medications and Allergies Active Medications: Active Medications Al Hydroxide/Mg Hydroxide (Milk Of Magnesia Liq) 30 ml PO Q12H PRN PRN Reason: Mild Constipation Bisacodyl (Dulcolax Supp) 10 mg RECTAL DAILY PRN PRN Reason: SEVERE CONSITIPATION Diphenhydramine HCl (Benadryl) 25 mg PO Q6H PRN PRN Reason: ITCHING Lactated Ringer's (Lr 1000 Ml Inj) 1,000 mls @ 75 mls/hr IV.CONT .[id number] FRANCISCO J Acetaminophen (Ofirmev Inj) 1,000 mg in 100 mls @ 400 mls/hr IV.SIG Q6H PRN PRN Reason: PAIN SCALE 1 TO 10 Lactulose (Lactulose Liq) 30 ml PO DAILY PRN PRN Reason: SEVERE CONSITIPATION Metoprolol Tartrate (Lopressor) 25 mg PO BID [facility] J Ondansetron HCl (Zofran Inj) 4 mg IV.PUSH Q6H PRN PRN Reason: NAUSEA OR VOMITING Senna/Docusate Sodium (Noa-Colace) 1 tab PO BID FRANCISCO J Sennosides (Senokot) 17.2 mg PO Q12H PRN PRN Reason: Moderate Constipation Allergies Allergy/AdvReac Type Severity Reaction Status Date / Time Sulfa (Sulfonamide Allergy Unknown Chills Verified 10/18/17 15:07 Antibiotics) NICKEL Allergy Severe Hives Uncoded 10/18/17 15:07 Home Medications Medication Instructions Recorded Confirmed Type aspirin [Aspirin Low Dose] 81 mg PO DAILY 10/18/17 10/18/17 History clopidogrel [Plavix] 75 mg PO DAILY 10/18/17 10/18/17 History diclofenac sodium [Voltaren] 4 g TOPICAL QID 10/18/17 10/18/17 History duloxetine 30 mg PO DAILY 10/18/17 10/18/17 History metoprolol tartrate 25 mg PO BID 10/18/17 10/18/17 History pantoprazole 40 mg PO DAILY 10/18/17 10/18/17 History rosuvastatin [Crestor] 10 mg PO DAILY 10/18/17 10/18/17 History amiodarone 10/19/17 10/19/17 History Exam Vital signs: Vital Signs 10/18/17 15:09 10/18/17 15:28 10/18/17 16:30 Temperature 98 F Pulse Rate 61 57 L 61 Respiratory Rate 20 17 19 Blood Pressure 204/88 H 155/67 H 166/74 H Pulse Oximetry 100 99 99 10/18/17 17:30 10/18/17 18:30 10/18/17 19:27 Temperature Pulse Rate 62 60 59 L Respiratory Rate 22 17 16 Blood Pressure 157/72 H 159/71 H 158/71 H Pulse Oximetry 96 97 97 10/18/17 20:00 Temperature Pulse Rate 61 Respiratory Rate 16 Blood Pressure 149/64 H Pulse Oximetry 98 Intake & Output 10/18/17 10/18/17 10/19/17 06:59 18:59 06:59 Weight 68.039 kg Narrative: GENERAL: Well-nourished, well-developed patient. SKIN: Warm and dry. HEAD: Normocephalic. EYES: No scleral icterus. No injection or drainage. NECK: Supple, trachea midline. No JVD or lymphadenopathy. CARDIOVASCULAR: Regular rate and rhythm without murmurs, gallops, or rubs. RESPIRATORY: Breath sounds equal bilaterally. No accessory muscle use. GASTROINTESTINAL: Abdomen soft, non-tender, nondistended. EXTREMITIES: As above NEUROLOGICAL: Awake, alert, and oriented x 3. Non-focal. Results - Laboratory Findings CBC and BMP: 10/20/17 03:24 10/20/17 03:24 Abnormal lab findings: Abnormal Labs 10/18/17 10/18/17 10/18/17 16:05 16:05 16:05 Neut % (Auto) 77.0 H APTT 19.1 L Chloride 110 H BUN 21 H Estimated GFR 82 L Random Glucose 107 H AST 38 H Alkaline Phosphatase 40 L Assessment and Plan - Plan I reviewed her radiological studies including Cervical Spine CT 10/18/17 15:07 CONCLUSION: 1. No acute bony abnormalities seen. 2. Degenerative change as described above. Face CT 10/18/17 15:07 CONCLUSION: 1. Left periorbital soft tissue swelling. 2. See the CT of the brain reported separately. 3. Carotid artery atherosclerotic calcification. Head CT 10/18/17 15:07 CONCLUSION: 1. Left frontal temporal subarachnoid hemorrhage. 2. Possible minimal right frontal subarachnoid blood. 3. No evidence of parenchymal hematoma or subdural hematoma or 4. Left periorbital soft tissue hematoma. (1) Head injury due to trauma Code(s): S09.90XA - Unspecified injury of head, initial encounter Status: Acute - Plan Dr. Moreland reviewed her radiological studies including Cervical Spine CT 10/18/17 15:07 CONCLUSION: 1. No acute bony abnormalities seen. 2. Degenerative change as described above. Face CT 10/18/17 15:07 CONCLUSION: 1. Left periorbital soft tissue swelling. 2. See the CT of the brain reported separately. 3. Carotid artery atherosclerotic calcification. Head CT 10/18/17 15:07 CONCLUSION: 1. Left frontal temporal subarachnoid hemorrhage. 2. Possible minimal right frontal subarachnoid blood. 3. No evidence of parenchymal hematoma or subdural hematoma or 4. Left periorbital soft tissue hematoma. Recommend nonsurgical management with neuro checks in a serial fashion. Recommend syncope workup, will; defer to medicine/trauma Pulmonary. aggressive pulmonary toilette, nasotracheal suction, and breathing treatments with nebulizers. Daily PT and OT Renal. Continue to monitor closely urine output, BUN and creatinine Endocrine. Continue to Monitor serial Acu checks and SSI as needed in detail ID continue to monitor for signs of infection Continue Protonix for stress ulcer prophylaxis Continue Ameya hose and SCD's for DVT prophylaxis Further recommendations will be provided depending on the patient's clinical evaluation and follow up studies.
[2017-10-19] MEDS: Metoprolol Tartrate 25 MG Tablet PO SCH ×2 (03:58→08:00)
[2017-10-19] MEDS: Senna/Docusate Sodium 8.6/50 MG Tablet PO SCH ×3 (03:59→20:33)
[2017-10-19] MEDS: levETIRAcetam 500 MG Tablet PO SCH ×2 (07:48→08:00)
[2017-10-19] MEDS: Amiodarone 200 MG Tablet PO SCH ×2 (07:49→08:00)
--- NOTE | 2017-10-19 12:29 | MB ---
cc: Trev Hyde MD DATE: 10/19/2017 REASON FOR CONSULTATION: Evaluation of syncope. HISTORY OF PRESENT ILLNESS: Cat Anders is a 71-year-old female, followed by my colleague, Dr. Swanson. She has known coronary artery disease. She underwent bypass surgery in 10/2016. She would have had stents, but had a severe nickel allergy. Her cardiac catheterization on 10/16/2017 demonstrated 80% mid LAD disease, two small diagonals with diffuse 50% disease, one large obtuse marginal branch with 50% distal disease and right coronary artery with 50% proximal and 70% mid disease. Her bypass was 10/20/2016. She had a left internal mammary graft to the LAD, vein graft to the right coronary artery. She has not had any anginal type symptoms. She is fairly active. She was preparing her camper for a trip to [place]. She was in the process of loading items into the motor home. The motor home did not have the air turned on and was extremely hot. She was extremely sweaty. Apparently, she came out of the motor home and then had syncope. She went inside and washed up. She has no memory of the event until she was in the ambulance on the way to the hospital. She did sustain a head trauma. She does not recall having any chest pain. She has not had any previous syncope or presyncope. Denies palpitations. She states she has had mild carotid disease. This was last checked 10/17/2016 and showed no significant stenosis at that time. She has felt fine all day today. PAST MEDICAL HISTORY: Includes coronary artery disease, as described above. PAST SURGICAL HISTORY: Includes bypass surgery, colonoscopy, rotator cuff repair on the right done twice, and tubal ligation. MEDICATIONS: Include metoprolol 25 mg p.o. b.i.d., pantoprazole 40 mg daily. She is currently not on aspirin or Plavix. I see amiodarone ordered at 200 mg p.o. b.i.d. I will have to do more homework on the amiodarone because I do not see why she is on that currently. She has never had syncope before. ALLERGIES: INCLUDE NICKEL AND SULFA. FAMILY HISTORY: Notable for colon cancer in her mother. SOCIAL HISTORY: She smoked 3 packs a day up until 1988. REVIEW OF SYSTEMS: Noncontributory. PHYSICAL EXAMINATION: GENERAL: Shows evidence head trauma with her left eye. NECK: Negative for JVD or bruits. CHEST: Clear to auscultation. CARDIOVASCULAR: Normal S1, S2. Regular rate and rhythm. A II/ systolic ejection murmur. ABDOMEN: Soft. EXTREMITIES: Reveal no clubbing, cyanosis or edema. Pulses are okay. DIAGNOSTIC STUDIES: EKG shows sinus rhythm with a right bundle branch block. Her head CT 10/18/2017 shows an acute subarachnoid hemorrhage. LABORATORY DATA: Hematocrit is 42.9. Creatinine is 0.7. ASSESSMENT AND PLAN: Syncope, sounds most likely vasomotor instability from being just extremely hot and sweaty from being in the camper and may have had a vagal type reaction. She does not demonstrate any arrhythmias or hypotension currently. I am ordering a 2D echo and a carotid Doppler. We will follow. MD TEJAS Wyatt/FORREST , 12:03 PM , 12:28 PM
--- NOTE | 2017-10-19 13:31 | P.NPEVAL ---
Patient History - Record/History Review Reason for Referral: The patient is a 71 year old right handed woman status post concussion secondary to a fall on 10/18/2017. Her injuries included a facial laceration. Head CT showed left frontotemporal SAH. She is referred for baseline neurobehavioral status examination per trauma protocol to assess cognitive, behavioral and emotional aspects of the injury and to provide treatment recommendations. [facility] - History History Provided By: Patient - Medical History Medical History: Medical History (Last Updated 10/18/17 @ 15:24 by Gris Villegas) Depression GERD (gastroesophageal reflux disease) History of deviated nasal septum Hyperlipidemia Hypertension - Surgical History Surgical History: Surgical History (Last Updated 10/18/17 @ 15:25 by Gris Villegas) H/O repair of rotator cuff H/O tubal ligation Hx of tonsillectomy Status post double vessel coronary artery bypass - Tobacco History Second Hand Smoke Exposure: No Smoking Status: Former smoker - Alcohol History How Often Do You Have a Drink Containing Alcohol: Monthly or less - Substance Use History Substance History: No History of Abuse - Travel History Recent Travel in the [facility] Within the Last 8 Weeks: No - Immunization History Tetanus Immunization: <5 Years Hx Influenza Vaccine This Season: No Medications Active Medications Al Hydroxide/Mg Hydroxide (Milk Of Magnesia Liq) 30 ml PO Q12H PRN PRN Reason: Mild Constipation Bisacodyl (Dulcolax Supp) 10 mg RECTAL DAILY PRN PRN Reason: SEVERE CONSITIPATION Diphenhydramine HCl (Benadryl) 25 mg PO Q6H PRN PRN Reason: ITCHING Duloxetine HCl (Cymbalta) 30 mg PO DAILY [facility] Last Admin: 10/19/17 08:00 Dose: 30 mg Lactated Ringer's (Lr 1000 Ml Inj) 1,000 mls @ 75 mls/hr IV.CONT .[id number] [facility] Last Admin: 10/19/17 08:01 Dose: 75 mls/hr Acetaminophen (Ofirmev Inj) 1,000 mg in 100 mls @ 400 mls/hr IV.SIG Q6H PRN PRN Reason: PAIN SCALE 1 TO 10 Lactulose (Lactulose Liq) 30 ml PO DAILY PRN PRN Reason: SEVERE CONSITIPATION Metoprolol Tartrate (Lopressor) 12.5 mg PO BID [facility] Miscellaneous (Pill Splitter) 1 each OTHER UNSCH [facility] Ondansetron HCl (Zofran Inj) 4 mg IV.PUSH Q6H PRN PRN Reason: NAUSEA OR VOMITING Pantoprazole Sodium (Protonix) 40 mg PO DAILY [facility] Last Admin: 10/19/17 08:00 Dose: 40 mg Senna/Docusate Sodium (Noa-Colace) 1 tab PO BID [facility] Last Admin: 10/19/17 08:01 Dose: Not Given Sennosides (Senokot) 17.2 mg PO Q12H PRN PRN Reason: Moderate Constipation Mental Status Assessment - Mental Status Orientation: oriented to: Self, Place, Time, Situation Mental Status: WFL: Thought processing, Language/interactions, Attention, Learning/memory, Problem-solving, Self-regulation, Other Absent: Hallucinations, Delusions Adjustment/Coping Assessment - Adjustment/Coping Adjustment/Coping: None: Depression, Anxiety, Pain, Apathy, Awareness, Insight - Observation In terms of emotional functioning, the patient demonstrated normal adjustment. This patient demonstrated no signs of agitation, impulsivity or disinhibition, nor was there remarkable evidence of a formal thought disorder or psychosis. There was no evidence of depression or anxiety. Thought content was free from suicidal, homicidal or paranoid ideation, and thought processes were logical and goal-directed. The patients mood was euthymic, and her affect was stable and appropriate. The patient appears to possess adequate insight and awareness into their situation and within the limits of this brief evaluation, adequate judgment. - Goals/Team Members LTG Status: Deferred STG Status: Deferred Team Members: Neuropsychologist Behavior - Behavior Treatment Engagement: Average - Observation Behaviorally, the patient demonstrated no signs of agitation, impulsivity or disinhibition. There was no remarkable evidence of a formal thought disorder or psychosis. - Goals LTG Status: Deferred STG Status: Deferred - Team Members Team Members: Neuropsychologist Diagnosis/Discharge Plan - Diagnosis (1) Mild neurocognitive disorder due to traumatic brain injury Status: Acute Impression: This 71 year old woman is s/p complicated mild TBI 2T fall on . [facility] [place] Level: Level VII Disinhibition Score: 14.00 Aggression Score: 14.00 Lability Score: 14.00 Agitated Behavior Total Score: 14 Maximizing Acute Care Outcome: It is recommended that the patient be monitored for emergent behavioral impulsivity as the medical condition evolves. This patients neuropathological challenges may limit rehabilitation potential going forward, and these challenges will require specialized therapeutic skills to maximize outcome. Additionally, the patients family is experiencing ongoing issues of adjustment given the traumatic nature of the injury, and they may benefit from ongoing psychological assistance. At this point in the recovery process, the patient does have cognitive capacity as the patient is able to understand a situation and its likely consequences, and she is able to manipulate information rationally. Cognitive capacity will be assessed throughout the recovery process. - Discharge Planning Anticipated Problems: Ongoing areas of concern will include behavioral impulsivity, lack of insight and judgment, which is expected to improve with time and treatment. Presently , the patient doing well from a neuropsychological standpoint. Treatment Plan: This clinician will continue to follow with you throughout the course of this patients acute care treatment, and I will be available to meet with the patient s family/support system to facilitate their understanding and the ongoing care of their family member. The goals of neuropsychological intervention shall be both educational and supportive to the family/support system as is deemed clinically appropriate. Thank you for the opportunity to assist in this patients care. Vamshi Witt, Ph.D., ABPP Board Certified in Clinical Neuropsychology [place] [employer] [place] Licensed Psychologist #[id number]
--- NOTE | 2017-10-19 13:55 | P.PNCC ---
Subjective Brief History: fell-? syncope SAH left GCS 15 on plavix -ASA 24 Hour Review/Hospital Course: 10/19 Patient remained stable GCS is 15 CT scan of the head is pending hemodynamically normal Tolerating clear liquid diet Objective Vital Signs / I&O: Vital Signs 10/18/17 15:09 10/18/17 15:28 10/18/17 16:30 Temperature 98 F Pulse Rate 61 57 L 61 Respiratory Rate 20 17 19 Blood Pressure 204/88 H 155/67 H 166/74 H Pulse Oximetry 100 99 99 10/18/17 17:30 10/18/17 18:30 10/18/17 19:27 Temperature Pulse Rate 62 60 59 L Respiratory Rate 22 17 16 Blood Pressure 157/72 H 159/71 H 158/71 H Pulse Oximetry 96 97 97 10/18/17 20:00 10/18/17 21:00 10/19/17 00:00 Temperature 98.5 F 98.5 F Pulse Rate 61 54 L 55 L Respiratory Rate 16 20 22 Blood Pressure 149/64 H 143/66 H 136/65 Pulse Oximetry 98 99 97 10/19/17 04:00 10/19/17 07:25 10/19/17 08:00 Temperature 98.5 F 98.5 F Pulse Rate 52 L 59 L Respiratory Rate 19 20 Blood Pressure 146/63 H 154/71 H 154/71 H Pulse Oximetry 97 99 Intake & Output 10/18/17 10/19/17 10/19/17 18:59 06:59 18:59 Intake Total 240 / 240 Output Total 500 / 500 Balance -260 / -260 Weight 68.039 kg 70.9 kg Intake: Oral 240 / 240 Output: Urine 500 / 500 Other: Date of Last Bowel Movement 10/19/17 # Bowel Movements 0 Weight On Admission 70.9 kg Result Diagrams: 10/18/17 16:05 10/18/17 16:05 Imaging: Impressions Cervical Spine CT 10/18/17 15:07 CONCLUSION: 1. No acute bony abnormalities seen. 2. Degenerative change as described above. Face CT 10/18/17 15:07 CONCLUSION: 1. Left periorbital soft tissue swelling. 2. See the CT of the brain reported separately. 3. Carotid artery atherosclerotic calcification. Head CT 10/18/17 15:07 CONCLUSION: 1. Left frontal temporal subarachnoid hemorrhage. 2. Possible minimal right frontal subarachnoid blood. 3. No evidence of parenchymal hematoma or subdural hematoma or 4. Left periorbital soft tissue hematoma. 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
--- NOTE | 2017-10-19 16:33 | P.PNNS ---
Subjective Interval history: 10/19: doing well, no new neuro complaints <Gabrielle Alas - Last Filed: 10/19/17 16:34> Physical Exam Vital signs: Vital Signs 10/18/17 17:30 10/18/17 18:30 10/18/17 19:27 Temperature Pulse Rate 62 60 59 L Respiratory Rate 22 17 16 Blood Pressure 157/72 H 159/71 H 158/71 H Pulse Oximetry 96 97 97 10/18/17 20:00 10/18/17 21:00 10/19/17 00:00 Temperature 98.5 F 98.5 F Pulse Rate 61 54 L 55 L Respiratory Rate 16 20 22 Blood Pressure 149/64 H 143/66 H 136/65 Pulse Oximetry 98 99 97 10/19/17 04:00 10/19/17 07:25 10/19/17 08:00 Temperature 98.5 F 98.5 F Pulse Rate 52 L 59 L Respiratory Rate 19 20 Blood Pressure 146/63 H 154/71 H 154/71 H Pulse Oximetry 97 99 10/19/17 12:00 Temperature 98.4 F Pulse Rate 66 Respiratory Rate 20 Blood Pressure 117/59 L Pulse Oximetry 99 Intake & Output 10/18/17 10/19/17 10/19/17 18:59 06:59 18:59 Intake Total 240 / 240 500 / 500 Output Total 500 / 500 Balance -260 / -260 500 / 500 Weight 68.039 kg 70.9 kg Intake: IV 500 / 500 LR 1000 mL Inj 1,000 ML @ 75 500 / 500 mls/hr IV.CONT .[id number] [facility] Rx# :[id number] Oral 240 / 240 Output: Urine 500 / 500 Other: Date of Last Bowel Movement 10/19/17 # Bowel Movements 0 Weight On Admission 70.9 kg Narrative: General: Well nourished. Comfortable andin no obvious distress during examination. HEENT: Normocephalic, left facial swelling and ecchymoses. Normal conjunctiva. No nasal drainage. Gross hearing intact bilaterally. No ear drainage. Neck: No masses, no JVD. Trachea midline. Soft, supple, no meningismus or nuchal rigidity. Normal range of motion without pain Neuro: Awake, alert and oriented to person, place, and time. Speech is clear and fluent. Can follow single and multi-step commands without apraxia. Cranial nerve examination: pupils to be equal, round, and reactive to light. Extra-ocular movements are intact with normal convergence. Facial motor Other cranial nerves are intact. Extremities: No obvious deformities. No clubbing. No peripheral edema. No increased tone, atrophy, or fasciculations. Moves all four extremities well. Lungs: nonlabored breathing on room air, no wheezing,rhonchi or crackles. No accessory muscle use. Heart: Regular rate and rhythm Skin: Warm and dry, no cyanosis or erythema. <Gabrielle Alas - Last Filed: 10/19/17 16:34> Vital signs: Vital Signs 10/19/17 20:00 10/19/17 22:00 10/20/17 00:00 Temperature 97 F L 97.5 F L Pulse Rate 65 65 64 Respiratory Rate 22 22 Blood Pressure 129/62 147/67 H Pulse Oximetry 98 96 10/20/17 02:00 10/20/17 04:00 10/20/17 08:00 Temperature 97 F L 98.0 F Pulse Rate 56 L 60 63 Respiratory Rate 16 21 Blood Pressure 159/72 H 168/77 H Pulse Oximetry 97 96 10/20/17 12:00 Temperature 98.0 F Pulse Rate 63 Respiratory Rate 21 Blood Pressure 160/77 H Pulse Oximetry 96 Intake & Output 10/20/17 10/20/17 10/21/17 06:59 18:59 06:59 Intake Total 450 / 450 100 / 100 Balance 450 / 450 100 / 100 Weight 73.9 kg Intake: IV 100 / 100 Ofirmev Inj 1,000 mg In 100 ml 100 / 100 @ 400 mls/hr IV.SIG Q6H PRN Rx# :[id number] Oral 450 / 450 Other: # Voids 1 4 Date of Last Bowel Movement 10/19/17 10/20/17 # Bowel Movements 2 # Incontinent Bowel Movements 0 Narrative: General: Well nourished. Comfortable andin no obvious distress during examination. HEENT: Normocephalic, left facial swelling and ecchymoses. Normal conjunctiva. No nasal drainage. Gross hearing intact bilaterally. No ear drainage. Neck: No masses, no JVD. Trachea midline. Soft, supple, no meningismus or nuchal rigidity. Normal range of motion without pain Neuro: Awake, alert and oriented to person, place, and time. Speech is clear and fluent. Can follow single and multi-step commands without apraxia. Cranial nerve examination: pupils to be equal, round, and reactive to light. Extra-ocular movements are intact with normal convergence. Facial motor Other cranial nerves are intact. Extremities: No obvious deformities. No clubbing. No peripheral edema. No increased tone, atrophy, or fasciculations. Moves all four extremities well. Lungs: nonlabored breathing on room air, no wheezing,rhonchi or crackles. No accessory muscle use. Heart: Regular rate and rhythm Skin: Warm and dry, no cyanosis or erythema. <Darius Moreland - Last Filed: 10/20/17 19:28> Assessment and Plan - Assessment (1) Head injury due to trauma Code(s): S09.90XA - Unspecified injury of head, initial encounter Status: Acute - Plan Dr. Moreland reviewed her radiological studies including Cervical Spine CT 10/18/17 15:07 CONCLUSION: 1. No acute bony abnormalities seen. 2. Degenerative change as described above. Face CT 10/18/17 15:07 CONCLUSION: 1. Left periorbital soft tissue swelling. 2. See the CT of the brain reported separately. 3. Carotid artery atherosclerotic calcification. Head CT 10/18/17 15:07 CONCLUSION: 1. Left frontal temporal subarachnoid hemorrhage. 2. Possible minimal right frontal subarachnoid blood. 3. No evidence of parenchymal hematoma or subdural hematoma or 4. Left periorbital soft tissue hematoma. cont nonsurgical management follow up CT Brain pending cont trauma management <Gabrielle Alas - Last Filed: 10/19/17 16:34> - Assessment (1) Head injury due to trauma Code(s): S09.90XA - Unspecified injury of head, initial encounter Status: Acute - Plan I reviewed her radiological studies including Cervical Spine CT 10/18/17 15:07 CONCLUSION: 1. No acute bony abnormalities seen. 2. Degenerative change as described above. Face CT 10/18/17 15:07 CONCLUSION: 1. Left periorbital soft tissue swelling. 2. See the CT of the brain reported separately. 3. Carotid artery atherosclerotic calcification. Head CT 10/18/17 15:07 CONCLUSION: 1. Left frontal temporal subarachnoid hemorrhage. 2. Possible minimal right frontal subarachnoid blood. 3. No evidence of parenchymal hematoma or subdural hematoma or 4. Left periorbital soft tissue hematoma. continue nonsurgical management. . neuro checks in a serial fashion. Pulmonary. aggressive pulmonary toilette, nasotracheal suction, and breathing treatments with nebulizers. Daily PT and OT Renal. Continue to monitor closely urine output, BUN and creatinine Endocrine. Continue to Monitor serial Acu checks and SSI as needed in detail ID continue to monitor for signs of infection Continue Protonix for stress ulcer prophylaxis Continue Ameya hose and SCD's for DVT prophylaxis Further recommendations will be provided depending on the patient's clinical evaluation and follow up studies. The exam, history, and the medical decision-making described in the above note were completed with the assistance of the mid-level provider. I reviewed and agree with the findings presented. I attest that I had a [id number] encounter with the patient on the same day, and personally performed and documented my assessment and findings in the medical record. <Darius Moreland - Last Filed: 10/20/17 19:28>
--- NOTE | 2017-10-19 18:13 | ECG ---
Date Performed: 10/18/2017 Time Performed: 15:09:03 PTAGE: 71 years EKG: SINUS BRADYCARDIA RIGHT BUNDLE BRANCH BLOCK ABNORMAL ECG PREVIOUS TRACING : 10/21/2016 05.40 Since the previous tracing, no significant change noted DOCTOR: Mitch Swanson Interpretating Date/Time 10/19/2017 18:12:42
--- NOTE | 2017-10-19 19:45 | CT ---
EXAM DATE: 10/19/2017 7:05 PM EDT AGE/SEX: 71 years / Female INDICATIONS: Follow up subarachnoid hemorrhage CLINICAL DATA: This is the patient's subsequent encounter. Patient reports that signs and symptoms h ave been present for 2 days and indicates a pain score of 3/10. MEDICAL/SURGICAL HISTORY: None. None. RADIATION DOSE: 44.74 CTDI (mGy) [place] [facility] [place]. . TECHNIQUE: CT of the head without contrast. Using automated exposure control and adjustment of the mA and/or kV according to patient size, radiation dose was kept as low as reasonably achievable to ob tain optimal diagnostic quality images. DICOM format image data is available electronically for revi ew and comparison. FINDINGS: Cerebrum: There is subarachnoid hemorrhage seen in the left frontal opercular sulci. This was presen t previously. New or increased hemorrhage is not seen. The ventricles are normal for age. No evidenc e of midline shift, mass lesion, or acute infarction. No extraaxial fluid collections are seen. Posterior Fossa: The cerebellum and brainstem are intact. The 4th ventricle is midline. The cerebe llopontine angle is unremarkable. Extracranial: The visualized portion of the orbits is intact. Skull: The calvaria is intact. No evidence of skull fracture. CONCLUSION: Persistent subarachnoid hemorrhage in the left frontal opercular region. This is unchanged. Electronically signed by: René James MD 10/19/2017 7:43 PM EDT
[2017-10-20] MEDS: Metoprolol Tartrate 25 MG Tablet PO SCH ×4 (03:02→20:12)
[2017-10-20 04:12] LABS: Baso # (Auto) 0.1 th/mm3 (0.0-0.2); Baso % (Auto) 0.7 % (0.0-2.0); Eos # (Auto) 0.1 th/mm3 (0.0-0.4); Eos % (Auto) 1.7 % (0.0-4.0); Hematocrit 37.8 % (35.0-46.0); Hemoglobin 12.9 gm/dL (11.6-15.3); Lymph % (Auto) 25.5 % (9.0-44.0); Mean Corpuscular HGB Conc 34.1 % (32.0-36.0); Mean Corpuscular Hemoglobin 32.1 pg (27.0-34.0); Mean Corpuscular Volume 94.3 fL (80.0-100.0); Mean Platelet Volume 7.7 fL (7.0-11.0); Mono # (Auto) 0.5 th/mm3 (0.0-0.9); Mono % (Auto) 6.5 % (0.0-8.0); Neut # (Auto) 5.1 th/mm3 (1.8-7.7); Neut % (Auto) 65.6 % (16.0-70.0); Platelet Count 190 th/mm3 (150-450); Red Blood Count 4.01 mil/mm3 (4.00-5.30); Red Cell Distribution Width 13.2 % (11.6-17.2); White Blood Count 7.7 th/mm3 (4.0-11.0)
[2017-10-20 04:45] LABS: Anion Gap 11 meq/L (5-15); Blood Urea Nitrogen 18 mg/dL (7-18); Calcium 8.8 mg/dL (8.5-10.1); Carbon Dioxide 22.4 meq/L (21.0-32.0); Chloride 112 meq/L (98-107); Glomerular Filtration Rate Greater Than 89 mL/min (>89); Glucose,Random 87 mg/dL (74-106); Potassium 3.9 meq/L (3.5-5.1); Sodium 145 meq/L (136-145)
[2017-10-20] MEDS: Senna/Docusate Sodium 8.6/50 MG Tablet PO SCH ×2 (08:19→20:09)
--- NOTE | 2017-10-20 11:13 | XR ---
EXAM DATE: 10/20/2017 11:05 AM EDT AGE/SEX: 71 years / Female INDICATIONS: Fall, Right foot pain. CLINICAL DATA: This is the patient's subsequent encounter. Patient reports that signs and symptoms h ave been present for 3 days and indicates a pain score of 8/10. MEDICAL/SURGICAL HISTORY: None. None. COMPARISON: No prior exams available for comparison. FINDINGS: Bony structures are intact and in normal alignment. Moderate degenerative change within the first dig it MTP joint. Mild degenerative changes identified along the dorsal aspect of the foot at the tarsome tatarsal junction. Osseous density is normal. Soft tissues are unremarkable. No radiopaque foreign bodies seen. CONCLUSION: No evidence of fracture. Electronically signed by: Nita Wong MD 10/20/2017 11:11 AM EDT
--- NOTE | 2017-10-20 11:47 | P.CON ---
History of Present Illness Service: Podiatric surgery Primary Care Provider: UNKNOWN Chief Complaint: Right foot pain History of Present Illness: 71-year-old female status post syncopal episode sustaining head injury, the patient has been having issues with her feet. She has been seen by a produce weigher outpatient MRIs ordered however arthritis known. The patient is having difficulty weightbearing after injury on the right foot. The patient is unsure if she sustained an injury when she had her syncopal episode. Patient is having pain with weightbearing and range of motion currently Review of Systems Eyes: Reports pain Musculoskeletal: Reports abnormal walking, Reports stiffness, Reports tingling PMFSH - History History Provided By: Patient - Medical History Medical History: Medical History (Last Updated 10/18/17 @ 15:24 by Gris Villegas) Depression GERD (gastroesophageal reflux disease) History of deviated nasal septum Hyperlipidemia Hypertension - Surgical History Surgical History: Surgical History (Last Updated 10/18/17 @ 15:25 by Gris Villegas) H/O repair of rotator cuff H/O tubal ligation Hx of tonsillectomy Status post double vessel coronary artery bypass - Tobacco History Second Hand Smoke Exposure: No Smoking Status: Former smoker - Alcohol History How Often Do You Have a Drink Containing Alcohol: Monthly or less - Substance Use History Substance History: No History of Abuse - Travel History Recent Travel in the [place] Within the Last 8 Weeks: No - Immunization History Tetanus Immunization: <5 Years Hx Influenza Vaccine This Season: No Medications and Allergies Active Medications: Active Medications Hydrocodone Bitart/Acetaminophen (Harrison 5/325) 1 tab PO Q4H PRN PRN Reason: Acute Pain Al Hydroxide/Mg Hydroxide (Milk Of Magnesia Liq) 30 ml PO Q12H PRN PRN Reason: Mild Constipation Bacitracin (Baciguent Oint) 1 applicatio TOPICAL BID [facility] Bisacodyl (Dulcolax Supp) 10 mg RECTAL DAILY PRN PRN Reason: SEVERE CONSITIPATION Diphenhydramine HCl (Benadryl) 25 mg PO Q6H PRN PRN Reason: ITCHING Duloxetine HCl (Cymbalta) 30 mg PO DAILY [facility] Last Admin: 10/20/17 08:18 Dose: 30 mg Lactulose (Lactulose Liq) 30 ml PO DAILY PRN PRN Reason: SEVERE CONSITIPATION Metoprolol Tartrate (Lopressor) 12.5 mg PO BID [facility] Last Admin: 10/20/17 08:18 Dose: 12.5 mg Miscellaneous (Pill Splitter) 1 each OTHER UNSCH [facility] Last Admin: 10/20/17 08:18 Dose: 1 each Ondansetron HCl (Zofran Inj) 4 mg IV.PUSH Q6H PRN PRN Reason: NAUSEA OR VOMITING Pantoprazole Sodium (Protonix) 40 mg PO DAILY [facility] Last Admin: 10/20/17 08:18 Dose: 40 mg Senna/Docusate Sodium (Noa-Colace) 1 tab PO BID [facility] Last Admin: 10/20/17 08:19 Dose: Not Given Sennosides (Senokot) 17.2 mg PO Q12H PRN PRN Reason: Moderate Constipation Allergies Allergy/AdvReac Type Severity Reaction Status Date / Time Sulfa (Sulfonamide Allergy Unknown Chills Verified 10/18/17 15:07 Antibiotics) NICKEL Allergy Severe Hives Uncoded 10/18/17 15:07 Home Medications Medication Instructions Recorded Confirmed Type aspirin [Aspirin Low Dose] 81 mg PO DAILY 10/18/17 10/18/17 History clopidogrel [Plavix] 75 mg PO DAILY 10/18/17 10/18/17 History diclofenac sodium [Voltaren] 4 g TOPICAL QID 10/18/17 10/18/17 History duloxetine 30 mg PO DAILY 10/18/17 10/18/17 History metoprolol tartrate 25 mg PO BID 10/18/17 10/18/17 History pantoprazole 40 mg PO DAILY 10/18/17 10/18/17 History rosuvastatin [Crestor] 10 mg PO DAILY 10/18/17 10/18/17 History amiodarone 10/19/17 10/19/17 History Physical Exam Vital signs: Vital Signs 10/19/17 12:00 10/19/17 16:00 10/19/17 20:00 Temperature 98.4 F 98.2 F 97 F L Pulse Rate 66 70 65 Respiratory Rate 20 27 H 22 Blood Pressure 117/59 L 121/81 129/62 Pulse Oximetry 99 99 98 10/19/17 22:00 10/20/17 00:00 10/20/17 02:00 Temperature 97.5 F L Pulse Rate 65 64 56 L Respiratory Rate 22 Blood Pressure 147/67 H Pulse Oximetry 96 10/20/17 04:00 10/20/17 08:00 Temperature 97 F L 98.0 F Pulse Rate 60 63 Respiratory Rate 16 21 Blood Pressure 159/72 H 168/77 H Pulse Oximetry 97 96 Intake & Output 10/19/17 10/20/17 10/20/17 18:59 06:59 18:59 Intake Total 500 / 500 450 / 450 100 / 100 Balance 500 / 500 450 / 450 100 / 100 Weight 73.9 kg Intake: IV 500 / 500 100 / 100 LR 1000 mL Inj 1,000 ML @ 75 500 / 500 mls/hr IV.CONT .[id number] [facility] Rx# :[id number] Ofirmev Inj 1,000 mg In 100 ml 100 / 100 @ 400 mls/hr IV.SIG Q6H PRN Rx# :[id number] Oral 450 / 450 Other: # Voids 4 1 Date of Last Bowel Movement 10/19/17 10/19/17 10/19/17 # Bowel Movements 1 # Incontinent Bowel Movements 0 - Constitutional no acute distress - Routine HEENT Exam Head: Present: facial swelling - Routine Neck Exam Present: supple - Routine Respiratory Exam Comments: Nonlabored respirations - Routine Extremities Exam Comments: Bilateral lower extremities examined: Right lower extremity point tenderness and pain of the central and lateral Lisfranc joint without crepitus or instability, moderate swelling early bruising noted. Palpable dorsal osteophytes noted of the Lisfranc joint. Good range of motion of the ankle mild hammertoe deformities noted of lesser digits Left lower extremity no obvious point tenderness good range of motion mild lesser digit hammertoe deformities. Bilateral neurovascular status intact with good sensation pedal pulses palpable no open lesions Assessment and Plan - Assessment (1) Right foot injury Code(s): S99.921A - Unspecified injury of right foot, initial encounter Status : Acute (2) Sprain of tarsal ligament of right foot Code(s): S93.611A - Sprain of tarsal ligament of right foot, initial encounter Status: Acute - Plan X-ray reviewed no obvious fracture however the patient is having significant difficulty with ambulating. There is a possibility of a hairline fracture or bone bruise. We will protect rest ice compress elevate and attempt physical therapy with controlled ankle motion boot. Thank you for this consultation Results Procedures completed during hospitalization: none Labs on day of discharge: Labs from last 24 hours 10/20/17 10/20/17 03:24 03:24 WBC 7.7 RBC 4.01 Hgb 12.9 Hct 37.8 MCV 94.3 MCH 32.1 MCHC 34.1 RDW 13.2 Plt Count 190 MPV 7.7 Neut % (Auto) 65.6 Lymph % (Auto) 25.5 [place]bour % (Auto) 6.5 Eos % (Auto) 1.7 Baso % (Auto) 0.7 Neut # (Auto) 5.1 Lymph # (Auto) 2.0 [place] # (Auto) 0.5 Eos # (Auto) 0.1 Baso # (Auto) 0.1 WBC Differential . Differential Comment Auto diff final Sodium 145 Potassium 3.9 Chloride 112 H Carbon Dioxide 22.4 Anion Gap 11 BUN 18 Creatinine 0.42 L Estimated GFR Greater than 89 Random Glucose 87 Calcium 8.8 D - Impressions ITS Impressions Cervical Spine CT 10/18/17 15:07 CONCLUSION: 1. No acute bony abnormalities seen. 2. Degenerative change as described above. Face CT 10/18/17 15:07 CONCLUSION: 1. Left periorbital soft tissue swelling. 2. See the CT of the brain reported separately. 3. Carotid artery atherosclerotic calcification. Head CT 10/19/17 00:00 CONCLUSION: Persistent subarachnoid hemorrhage in the left frontal opercular region. This is unchanged. Foot X-Ray 10/20/17 00:00 CONCLUSION: No evidence of fracture.
--- NOTE | 2017-10-20 13:47 | P.PNCC ---
Subjective Brief History: PILOT STATION: This is a 71-year-old female who sustained a fall. She tripped and fell striking her face. Positive LOC. GCS 15. She takes aspirin and Plavix at home. INJURIES: LEFT periorbital lac (sutures) LEFT frontotemporal SAH ??Hairline fx or bone bruise LEFT foot. (ankle motion boot) PMHx: CAD, CABG, HLD, GERD, Depression, HTN Consults: Neurosurgery. Cardiology. Podiatry. Neuropsych. Case management. 24 Hour Review/Hospital Course: 10/19 Patient remained stable GCS is 15 CT scan of the head is pending hemodynamically normal Tolerating clear liquid diet 10/20/2017 Pt sitting up in bed. No distress noted. Patient complains of increased pain to right foot. Describes a history of arthritis. Patient states she is not sure if she injured it her fall. Objective Vital Signs / I&O: Vital Signs 10/19/17 16:00 10/19/17 20:00 10/19/17 22:00 Temperature 98.2 F 97 F L Pulse Rate 70 65 65 Respiratory Rate 27 H 22 Blood Pressure 121/81 129/62 Pulse Oximetry 99 98 10/20/17 00:00 10/20/17 02:00 10/20/17 04:00 Temperature 97.5 F L 97 F L Pulse Rate 64 56 L 60 Respiratory Rate 22 16 Blood Pressure 147/67 H 159/72 H Pulse Oximetry 96 97 10/20/17 08:00 10/20/17 12:00 Temperature 98.0 F 98.0 F Pulse Rate 63 63 Respiratory Rate 21 21 Blood Pressure 168/77 H 160/77 H Pulse Oximetry 96 96 Intake & Output 10/19/17 10/20/17 10/20/17 18:59 06:59 18:59 Intake Total 500 / 500 450 / 450 100 / 100 Balance 500 / 500 450 / 450 100 / 100 Weight 73.9 kg Intake: IV 500 / 500 100 / 100 LR 1000 mL Inj 1,000 ML @ 75 500 / 500 mls/hr IV.CONT .[id number] [facility] Rx# :[id number] Ofirmev Inj 1,000 mg In 100 ml 100 / 100 @ 400 mls/hr IV.SIG Q6H PRN Rx# :[id number] Oral 450 / 450 Other: # Voids 4 1 Date of Last Bowel Movement 10/19/17 10/19/17 10/19/17 # Bowel Movements 1 # Incontinent Bowel Movements 0 Result Diagrams: 10/20/17 03:24 10/20/17 03:24 Imaging: Impressions Head CT 10/19/17 00:00 CONCLUSION: Persistent subarachnoid hemorrhage in the left frontal opercular region. This is unchanged. Foot X-Ray 10/20/17 00:00 CONCLUSION: No evidence of fracture. Disinhibition Score: 14.00 Aggression Score: 14.00 Lability Score: 14.00 Agitated Behavior Total Score: 14 Objective Remarks: GENERAL: This is a 71-year-old female sitting up in bed. No distress noted. SKIN: Warm and dry. HEAD: Atraumatic. Normocephalic. EYES: PERRLA. Ecchymosis noted to left under eye. ENT: No nasal bleeding or discharge. Mucous membranes pink and moist. NECK: Trachea midline. No JVD. CARDIOVASCULAR: Regular rate and rhythm. RESPIRATORY: No accessory muscle use. Lungs are clear to auscultation. Breath sounds equal bilaterally. No distress or dyspnea. GASTROINTESTINAL: BS + x 4 quads. Abdomen soft, non-tender, nondistended. MUSCULOSKELETAL: Extremities without cyanosis, or edema. + peripheral pulses x 4 extremities. Warm with good capillary refill and sensation. MAEW. NEUROLOGICAL: Awake and alert. Normal speech and pattern. Assessment and Plan Plan: PILOT STATION: This is a 71-year-old female who sustained a fall. She tripped and fell striking her face. Positive LOC. GCS 15. She takes aspirin and Plavix at home. INJURIES: LEFT periorbital lac (sutures) LEFT frontotemporal SAH ??Hairline fx or bone bruise LEFT foot. (ankle motion boot) PMHx: CAD, CABG, HLD, GERD, Depression, HTN Consults: Neurosurgery. Cardiology. Podiatry. Neuropsych. Case management. Diet: Regular diet. Tolerating po diet. Encourage good po intake with each meal. Pulmonary: Encourage good pulmonary toileting. IS at bedside and pt encouraged to use. Rationale for use explained to patient, and verbalized understanding. PAIN Management: [place] 5 mg q 4h. Ofirmev. Activity: OOB. PT and OT ordered GI prophylaxis: PO Protonix Bowel regimen: Noa-colace. MOM PRN. Lactulose PRN. Sebnna PRN. Bisacodyl PRN LBM: 10/19 DVT prophylaxis: Mechanical VTE with SCDs. Chemical management TBD. DC Planning: Case management consulted for assistance with final discharge disposition. Emotional support provided to patient and family at bedside and plan of care discussed. Discussed with RN at bedside. Discussed pt condition and plan of care with collaborating trauma surgeon. Patient is hemodynamically stable in the ICU, and therefore can be transferred and managed on the med/surg floor. The trauma team will round each day, and evaluate plan of care on a daily basis. LEFT periorbital lac (sutures) LEFT frontotemporal SAH Neurosurgery consulted and assisting in management and care Supportive care 10/19: CT brain -unchanged subarachnoid hemorrhage on the left. Serial neuro checks CT brain for any change in neurological status Pain management Encourage out of bed with assist PT and OT ordered Seizure precautions Seizure prophylaxis -Keppra p.o. Hold aspirin and Plavix in light of SAH Syncope Vital signs every 4 hours Cardiac monitoring Cardiology consulted and assisting in management care Possible vasovagal incident Carotid ultrasound ordered Echocardiogram ordered Home med Lopressor 12.5 BID ??Hairline fx or bone bruise LEFT foot. (ankle motion boot) 10/20: Right foot x-ray -negative History of arthritis Consult podiatry for continued management and care Ankle motion boot ordered Supportive care PT and OT ordered Attestation: Patient seen and examined the nurse practitioner, TBI stable, continue syncope workup by cardiology continue pain control
--- NOTE | 2017-10-20 14:24 | P.PNNS ---
Subjective Interval history: When seen this afternoon the patient is sitting up in the bed watching TV. Her only complaint was some pain to the right foot, otherwise she had no complaints of any kind. She did say that she lost a tooth when she fell and hit the cement. Upon evaluation the patient is neurologically intact. <Gume Rouse E - Last Filed: 10/20/17 14:29> Physical Exam Vital signs: Vital Signs 10/19/17 16:00 10/19/17 20:00 10/19/17 22:00 Temperature 98.2 F 97 F L Pulse Rate 70 65 65 Respiratory Rate 27 H 22 Blood Pressure 121/81 129/62 Pulse Oximetry 99 98 10/20/17 00:00 10/20/17 02:00 10/20/17 04:00 Temperature 97.5 F L 97 F L Pulse Rate 64 56 L 60 Respiratory Rate 22 16 Blood Pressure 147/67 H 159/72 H Pulse Oximetry 96 97 10/20/17 08:00 10/20/17 12:00 Temperature 98.0 F 98.0 F Pulse Rate 63 63 Respiratory Rate 21 21 Blood Pressure 168/77 H 160/77 H Pulse Oximetry 96 96 Intake & Output 10/19/17 10/20/17 10/20/17 18:59 06:59 18:59 Intake Total 500 / 500 450 / 450 100 / 100 Balance 500 / 500 450 / 450 100 / 100 Weight 73.9 kg Intake: IV 500 / 500 100 / 100 LR 1000 mL Inj 1,000 ML @ 75 500 / 500 mls/hr IV.CONT .[id number] FRANCISCO J Rx# :[id number] Ofirmev Inj 1,000 mg In 100 ml 100 / 100 @ 400 mls/hr IV.SIG Q6H PRN Rx# :[id number] Oral 450 / 450 Other: # Voids 4 1 Date of Last Bowel Movement 10/19/17 10/19/17 10/19/17 # Bowel Movements 1 # Incontinent Bowel Movements 0 Narrative: GENERAL:Awake & alert, sitting up in bed watching TV. Affect normal. Readily interacts. No apparent distress. HEENT: Normocephalic, left facial swelling & ecchymoses. Pupils equal 4 mm brisk, EOMI intact. MMM & pink, tongue midline to protrusion. MUSCULOSKELETAL: VERA spontaneously & purposefully w/o difficulty. Walking boot to distal RLE o/w extremities NTTP. No evident deformity or clubbing. NEUROLOGICAL: AAOx3. Speech clear & appropriate. Follows simple commands w/o difficulty. CN II through XII grossly intact. Sensation intact to light touch to all extremities. Motor strength is normal to all major flexion & extension muscle groups of the extremities except unable to test distal RLE due to walking boot in place. <Gume Rouse - Last Filed: 10/20/17 14:29> Vital signs: Vital Signs 10/20/17 20:00 10/21/17 00:45 10/21/17 02:00 Temperature 97.8 F 98.7 F Pulse Rate 82 63 68 Respiratory Rate 18 17 Blood Pressure 158/72 H 140/67 Pulse Oximetry 95 95 10/21/17 06:00 10/21/17 08:00 10/21/17 12:00 Temperature 98.8 F 98.1 F 97.8 F Pulse Rate 64 62 59 L Respiratory Rate 17 16 16 Blood Pressure 160/72 H 154/69 H 109/54 L Pulse Oximetry 95 94 L 95 Intake & Output 10/20/17 10/21/17 10/21/17 18:59 06:59 18:59 Intake Total 100 / 100 750 / 750 Balance 100 / 100 750 / 750 Weight 74 kg Intake: IV 100 / 100 Ofirmev Inj 1,000 mg In 100 ml 100 / 100 @ 400 mls/hr IV.SIG Q6H PRN Rx# :[id number] Oral 750 / 750 Other: # Voids 4 4 Date of Last Bowel Movement 10/20/17 10/20/17 # Bowel Movements 2 0 <Anibal Hartmann - Last Filed: 10/21/17 17:02> Assessment and Plan - Assessment (1) Subarachnoid hemorrhage Code(s): I60.9 - Nontraumatic subarachnoid hemorrhage, unspecified Status: Acute (2) Mild neurocognitive disorder due to traumatic brain injury Code(s): S06.9X9S - Unspecified intracranial injury with loss of consciousness of unspecified duration, sequela; G31.84 - Mild cognitive impairment, so stated Status: Acute (3) Head injury due to trauma Code(s): S09.90XA - Unspecified injury of head, initial encounter Status: Acute - Plan Impression: The patient is doing well and remains stable neurologically. Cervical Spine CT 10/18/17 15:07 CONCLUSION: 1. No acute bony abnormalities seen. 2. Degenerative change as described above. Face CT 10/18/17 15:07 CONCLUSION: 1. Left periorbital soft tissue swelling. 2. See the CT of the brain reported separately. 3. Carotid artery atherosclerotic calcification. Head CT 10/18/17 15:07 CONCLUSION: 1. Left frontal temporal subarachnoid hemorrhage. 2. Possible minimal right frontal subarachnoid blood. 3. No evidence of parenchymal hematoma or subdural hematoma or 4. Left periorbital soft tissue hematoma. Head CT 19:05 CONCLUSION: Persistent subarachnoid hemorrhage in the left frontal opercular region. This is unchanged. Plan: cont nonsurgical management cont trauma management Patient may transfer to a regular med/surg floor from Neurosurgery's perspective. <Gume Rouse - Last Filed: 10/20/17 14:29> - Attending Attestation The exam, history, and the medical decision-making described in the above note were completed with the assistance of the mid-level provider. I reviewed and agree with the findings presented. I attest that I had a [id number] encounter with the patient on the same day, and personally performed and documented my assessment and findings in the medical record. No new complaints. Stable neurologic exam Continue therapy <Anibal Hartmann - Last Filed: 10/21/17 17:02>
[2017-10-21] MEDS: Metoprolol Tartrate 25 MG Tablet PO SCH ×2 (09:33→20:46)
[2017-10-21] MEDS: Senna/Docusate Sodium 8.6/50 MG Tablet PO SCH ×2 (09:35→20:47)
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
--- NOTE | 2017-10-21 20:38 | ECHRPT ---
Indication: CONCLUSIONS The left ventricular systolic function is low normal with an estimated ejection fraction in the rang e of 50- 55%. Mild concentric left ventricular hypertrophy. Normal left ventricular size. The left atrial size is moderately dilated. Mitral annular calcification is present. Mild mitral valve regurgitation. Diffuse calcification of the aortic valve. Mild aortic valve stenosis. Aortic valve mean gradient is 10 mmHg. There is mild tricuspid valve regurgitation. The estimated pulmonary arterial pressure is 40.5 mmHg. Trivial pulmonary valve regurgitation. BP: / HR: Rhythm: Sinus MEASUREMENTS (Male / Female) Normal Values Technical Quality:Fair 2D ECHO LV Diastolic Diameter PLAX 4.6 cm 4.2 - 5.9 / 3.9 - 5.3 cm LV Systolic Diameter PLAX 2.9 cm IVS Diastolic Thickness 1.0 cm 0.6 - 1.0 / 0.6 - 0.9 cm LVPW Diastolic Thickness 1.0 cm 0.6 - 1.0 / 0.6 - 0.9 cm LV Relative Wall Thickness 0.4 RV Internal Dim ED PLAX 2.9 cm LVOT Diameter 1.8 cm LA Systolic Diameter LX 4.3 cm 3.0 - 4.0 / 2.7 - 3.8 cm M-MODE Aortic Root Diameter MM 2.7 cm LA Systolic Diameter MM 4.7 cm LA Ao Ratio MM 1.7 AV Cusp Separation MM 1.0 cm DOPPLER AV Peak Velocity 228.0 cm/s AV Peak Gradient 20.8 mmHg AV Mean Gradient 10.0 mmHg AV Velocity Time Integral 50.6 cm LVOT Peak Velocity 88.7 cm/s LVOT Peak Gradient 3.1 mmHg LVOT Velocity Time Integral 19.9 cm AV Area Cont Eq vti 1.0 cm AV Area Cont Eq pk 1.0 cm MV Area PHT 3.0 cm Mitral E Point Velocity 46.6 cm/s Mitral A Point Velocity 54.8 cm/s Mitral E to A Ratio 0.9 LV E' Lateral Velocity 10.6 cm/s Mitral E to LV E' Lateral Ratio 4.4 LV E' Septal Velocity 6.7 cm/s Mitral E to LV E' Septal Ratio 6.9 TR Peak Velocity 276.0 cm/s TR Peak Gradient 30.5 mmHg Right Atrial Pressure 10.0 mmHg Pulmonary Artery Systolic Pressu 40.5 mmHg Right Ventricular Systolic Press 40.5 mmHg FINDINGS LEFT VENTRICLE The left ventricular systolic function is low normal with an estimated ejection fraction in the rang e of 50- 55%. Mild concentric left ventricular hypertrophy. Normal left ventricular size. RIGHT VENTRICLE Normal right ventricular size and systolic function. LEFT ATRIUM The left atrial size is moderately dilated. RIGHT ATRIUM The right atrial size is normal. ATRIAL SEPTUM Normal atrial septal thickness without atrial level shunting by limited color doppler interrogation. AORTA The aortic root and proximal ascending aorta are normal in size on limited imaging. MITRAL VALVE Mitral annular calcification is present. Mild mitral valve regurgitation. AORTIC VALVE Trileaflet aortic valve. Diffuse calcification of the aortic valve. Mild aortic valve stenosis. Aortic valve mean gradient is 10 mmHg. TRICUSPID VALVE Structurally normal tricuspid valve. There is mild tricuspid valve regurgitation. The estimated pulmonary arterial pressure is 40.5 mmHg. PULMONARY VALVE Trivial pulmonary valve regurgitation. VESSELS The inferior vena cava is normal in size. PERICARDIUM No pericardial effusion. Alisa Osei MD Edited by: clinic administrator clinic administrator (Electronically Signed) Final Date:21 October 2017 10:20 Amended: 21 October 2017 20:35
[2017-10-22] MEDS: Metoprolol Tartrate 25 MG Tablet PO SCH ×2 (08:06→22:12)
[2017-10-22] MEDS: Senna/Docusate Sodium 8.6/50 MG Tablet PO SCH ×2 (08:06→22:14)
--- NOTE | 2017-10-22 08:35 | P.PNNPSY ---
- Emotional Mild: Anxious/fearful, Depressed/sad - Cognitive Intact: Cognitive, Attention/concentration, Confused/orientation, Insight/ awareness, Judgment/problem solving, Memory - Progress Notes/Response to Treatment Contents of Sessions: Adjustment, Level of consciousness Time with Patient: 15 minutes Premorbid Psychological Status: Premorbid Cognitive, Emotional and Behavioral Status: Stable. The patient has high school years of education and a solid work history prior to this injury. The patient has psychiatric difficulties, as described above, specifically a history of depression. Substance abuse history is unremarkable. Behavioral Reactions of Patient and Family/Support System: Stable. The patient s family is experiencing ongoing issues of adjustment given the nature of the injury, and this aspect of recovery will require ongoing monitoring. Emotional/Behavioral Status of Patient and Family/Support System: Stable. Pertinent issues, if appropriate to this patients clinical care, are described in detail above. Maximizing Acute Care Outcome: It is recommended that the patient be monitored for emergent behavioral impulsivity as the medical condition evolves. This patients neuropathological challenges may limit rehabilitation potential going forward, and these challenges will require specialized therapeutic skills to maximize outcome. Additionally, the patients family is experiencing ongoing issues of adjustment given the traumatic nature of the injury, and they may benefit from ongoing psychological assistance. At this point in the recovery process, the patient does have cognitive capacity as the patient is able to understand a situation and its likely consequences, and she is able to manipulate information rationally. Cognitive capacity will be assessed throughout the recovery process. Anticipated Problems: Ongoing areas of concern will include behavioral impulsivity, lack of insight and judgment, which is expected to improve with time and treatment. Presently , the patient doing well from a neuropsychological standpoint. Treatment Plan: This clinician will continue to follow with you throughout the course of this patients acute care treatment, and I will be available to meet with the patient s family/support system to facilitate their understanding and the ongoing care of their family member. The goals of neuropsychological intervention shall be both educational and supportive to the family/support system as is deemed clinically appropriate. [place] COG Scale: Level VII Disinhibition Score: 14.00 Aggression Score: 14.00 Lability Score: 14.00 Agitated Behavior Total Score: 14 Impression: This 71 year old woman is s/p complicated mild TBI 2T fall on . Progress Note Narrative: PTD 4. The patient is stable, but complaining of foot pain. No other issues of agitation/restlessness. She is at neuropsychological baseline. I will follow. - Diagnosis (1) Mild neurocognitive disorder due to traumatic brain injury Status: Acute
--- NOTE | 2017-10-22 10:42 | P.PNNS ---
Subjective Interval history: 10/22: doing well, having carotid studies being done, no new neuro complaints <Gabrielle Alas - Last Filed: 10/22/17 10:40> Physical Exam Vital signs: Vital Signs 10/21/17 12:00 10/21/17 16:00 10/21/17 18:00 Temperature 97.8 F 97.8 F Pulse Rate 59 L 57 L 56 L Respiratory Rate 16 16 Blood Pressure 109/54 L 121/60 Pulse Oximetry 95 94 L 10/21/17 20:00 10/22/17 00:45 10/22/17 03:30 Temperature 98 F 98.9 F 98 F Pulse Rate 64 65 62 Respiratory Rate 16 17 16 Blood Pressure 136/63 125/65 125/66 Pulse Oximetry 97 98 98 10/22/17 08:00 Temperature 98.1 F Pulse Rate 63 Respiratory Rate 20 Blood Pressure 122/60 Pulse Oximetry 96 Intake & Output 10/21/17 10/22/17 10/22/17 18:59 06:59 18:59 Intake Total 1740 / 1740 Output Total 4 / 4 Balance 1736 / 1736 Weight 74 kg Intake: Oral 1740 / 1740 Output: Urine 4 / 4 Other: # Voids 4 Date of Last Bowel Movement 10/20/17 # Bowel Movements 0 Narrative: GENERAL:Awake. comfortable. HEENT: Normocephalic, left facial swelling & ecchymoses, Pupils equal 4 mm brisk , MUSCULOSKELETAL: VERA spontaneously & purposefully w/o difficulty. right lower extremity in an orthopedic brace NEUROLOGICAL: AAOx3. Speech clear & appropriate. Follows simple commands w/o difficulty. <Gabrielle Alas - Last Filed: 10/22/17 10:40> Vital signs: Vital Signs 10/22/17 19:15 10/22/17 20:00 10/23/17 00:00 Temperature 99.0 F 99.3 F Pulse Rate 92 H 58 L 73 Respiratory Rate 18 18 Blood Pressure 130/62 131/69 Pulse Oximetry 97 95 10/23/17 04:00 10/23/17 08:00 10/23/17 12:00 Temperature 99.3 F 98.3 F 98.6 F Pulse Rate 79 83 68 Respiratory Rate 18 20 20 Blood Pressure 130/72 188/86 H 126/57 L Pulse Oximetry 96 94 L 99 Intake & Output 10/22/17 10/23/17 10/23/17 18:59 06:59 18:59 Intake Total 360 / 360 360 / 360 Output Total Balance 350 / 350 359 / 359 - Intake: Oral 360 / 360 360 / 360 Output: Urine 5 / 5 Stool 2 / 2 Other: # Voids 2 Date of Last Bowel Movement 10/22/17 10/23/17 Narrative: She is alert, awake. Comfortable, in no acute distress. Speech is fluent Cranial nerve examination: pupils to be equal, round and reactive to light. Extra-ocular movements are intact. Facial motor and sensory function are normal and symmetrical. Gross hearing appears intact. Sternocleidomastoid and trapezius muscles are symmetrical. Other cranial nerves are intact. Neck is soft and supple with a good range of motion without pain. Muscle strength is normal in all muscle groups of both upper and lower extremities. Sensory examination is intact to light touch and pin prick in both the upper and lower extremities. Deep tendon reflexes are symmetrical in both upper and lower extremities. There is a bilateral plantar flexion response. Cerebellar examination is unremarkable, without deficits. Lungs are clear Heart regular rhythm is regular rate Skin warm and dry <Darius Moreland - Last Filed: 10/23/17 16:37> Assessment and Plan - Plan Impression: The patient continues to do well and remains stable neurologically. Cervical Spine CT 10/18/17 15:07 CONCLUSION: 1. No acute bony abnormalities seen. 2. Degenerative change as described above. Face CT 10/18/17 15:07 CONCLUSION: 1. Left periorbital soft tissue swelling. 2. See the CT of the brain reported separately. 3. Carotid artery atherosclerotic calcification. Head CT 10/18/17 15:07 CONCLUSION: 1. Left frontal temporal subarachnoid hemorrhage. 2. Possible minimal right frontal subarachnoid blood. 3. No evidence of parenchymal hematoma or subdural hematoma or 4. Left periorbital soft tissue hematoma. Head CT 19:05 CONCLUSION: Persistent subarachnoid hemorrhage in the left frontal opercular region. This is unchanged. Plan: cont nonsurgical management cont trauma management <Gabrielle Alas - Last Filed: 10/22/17 10:40> - Plan I again reviewed her follow up CT Head CT 19:05 CONCLUSION: Persistent subarachnoid hemorrhage in the left frontal opercular region. This is unchanged. Neuro. Continue neuro checks in a serial fashion. Continue nonoperative treatment Pulmonary. aggressive pulmonary toilette, nasotracheal suction, and breathing treatments with nebulizers. Daily PT and OT Renal. Continue to monitor closely urine output, BUN and creatinine Endocrine. Continue to Monitor serial Acu checks and SSI as needed in detail ID continue to monitor for signs of infection Continue Protonix for stress ulcer prophylaxis Continue Ameya shea and SCD's for DVT prophylaxis <Darius Moreland - Last Filed: 10/23/17 16:37>
--- NOTE | 2017-10-22 11:13 | US ---
EXAM DATE: 10/22/2017 10:46 AM EDT AGE/SEX: 71 years / Female INDICATIONS: Syncope. CLINICAL DATA: This is the patient's subsequent encounter. Patient reports that signs and symptoms h ave been present for 3 days and indicates a pain score of 0/10. MEDICAL/SURGICAL HISTORY: Gastroesophageal reflux disease. Hypertension. Hyperlipidemia. Tuba l ligation. Tonsillectomy. Repair of rotator cuff. Deviated septum surgery. Double vessel coronary a rtery bypass. COMPARISON: [facility] [place] CAROTID ARTER[place], 10/17/2016. . VELOCITY PARAMETERS: ICA/CCA Ratio: Right 1.4 , Left 0.8 ICA: Right 106 cm/sec, Left 106 cm/sec CCA: Right 75 cm/sec, Left 136 cm/sec ECA: Right 83 cm/sec, Left 174 cm/sec Vertebral: Right 63 cm/sec antegrade, Left 60 cm/sec antegrade FINDINGS: Right Carotid: No significant plaque is visualized.The waveforms are within normal limits. Left Carotid: No significant plaque is visualized. The waveforms are within normal limits. Other: None. CONCLUSION: No evidence of flow-limiting carotid stenosis. Electronically signed by: René Jara MD 10/22/2017 11:12 AM EDT
--- NOTE | 2017-10-22 12:50 | P.PN ---
Subjective Interval history: Trauma PTD: 5 Patient lying in bed. No distress noted. Appears to be in good spirits. at bedside Patient states, "I do not know what happens. I just took my metoprolol, my legs gave away and I fell." "I was in the mobile home moving things, and got hot. Normally I have the air- conditioning on." Patient is hopeful to go home soon. Physical Exam Vital signs: Vital Signs 10/21/17 16:00 10/21/17 18:00 10/21/17 20:00 Temperature 97.8 F 98 F Pulse Rate 57 L 56 L 64 Respiratory Rate 16 16 Blood Pressure 121/60 136/63 Pulse Oximetry 94 L 97 10/22/17 00:45 10/22/17 03:30 10/22/17 08:00 Temperature 98.9 F 98 F 98.1 F Pulse Rate 65 62 63 Respiratory Rate 17 16 20 Blood Pressure 125/65 125/66 122/60 Pulse Oximetry 98 98 96 Intake & Output 10/21/17 10/22/17 10/22/17 18:59 06:59 18:59 Intake Total 1740 / 1740 Output Total 4 / 4 Balance 1736 / 1736 Weight 74 kg Intake: Oral 1740 / 1740 Output: Urine 4 / 4 Other: # Voids 4 Date of Last Bowel Movement 10/20/17 # Bowel Movements 0 Narrative: GENERAL: This is a 71-year-old female sitting up in bed. No distress noted. SKIN: Warm and dry. Ecchymosis to left cheek and left chin. HEAD: Atraumatic. Normocephalic. EYES: PERRLA. Ecchymosis noted to left under eye. ENT: No nasal bleeding or discharge. Mucous membranes pink and moist. NECK: Trachea midline. No JVD. CARDIOVASCULAR: Regular rate and rhythm. RESPIRATORY: No accessory muscle use. Lungs are clear to auscultation. Breath sounds equal bilaterally. No distress or dyspnea. GASTROINTESTINAL: BS + x 4 quads. Abdomen soft, non-tender, nondistended. MUSCULOSKELETAL: Extremities without cyanosis, or edema. Right lower extremity elevated on a pillow with ankle motion boot on. + peripheral pulses x 4 extremities. Warm with good capillary refill and sensation. MAEW. NEUROLOGICAL: Awake and alert. Normal speech and pattern. Results - Labs CBC & Chem 7: 10/20/17 03:24 10/20/17 03:24 - Imaging Impressions Carotid Doppler Study 10/22/17 00:00 CONCLUSION: No evidence of flow-limiting carotid stenosis. - Procedures none Assessment and Plan - Plan [id number]: This is a 71-year-old female who sustained a fall. She tripped and fell striking her face. Positive LOC. GCS 15. She takes aspirin and Plavix at home. INJURIES: LEFT periorbital lac (sutures) LEFT frontotemporal SAH ??Hairline fx or bone bruise LEFT foot. (ankle motion boot) PMHx: CAD, CABG, HLD, GERD, Depression, HTN Consults: Neurosurgery. Cardiology. Podiatry. Neuropsych. Case management. Diet: Regular diet. Tolerating po diet. Encourage good po intake with each meal. Pulmonary: Encourage good pulmonary toileting. IS at bedside and pt encouraged to use. Rationale for use explained to patient, and verbalized understanding. PAIN Management: Percocet 5-7.5 mg q 4h. Activity: OOB. PT and OT ordered. WBAT LLE GI prophylaxis: PO Protonix Bowel regimen: Noa-colace. MOM PRN. Lactulose PRN. Senna PRN. Bisacodyl PRN. LBM: 10/20. DVT prophylaxis: Mechanical VTE with SCDs. Chemical management TBD in light if SAH. DC Planning: Case management consulted for assistance with final discharge disposition. Emotional support provided to patient and family at bedside and plan of care discussed. Discussed with RN at bedside. Discussed pt condition and plan of care with collaborating trauma surgeon. Patient is hemodynamically stable managed on the med/surg floor. The trauma team will round each day, and evaluate plan of care on a daily basis. LEFT periorbital lac (sutures) LEFT frontotemporal SAH Neurosurgery consulted and assisting in management and care Supportive care 10/19: CT brain -unchanged subarachnoid hemorrhage on the left. Serial neuro checks CT brain for any change in neurological status Pain management Encourage out of bed with assist PT and OT ordered Seizure precautions Seizure prophylaxis -Keppra p.o. Hold aspirin and Plavix in light of SAH Syncope Vital signs every 4 hours Cardiac monitoring Cardiology consulted and assisting in management care Possible vasovagal incident Carotid ultrasound - with no evidence of carotid stenosis. Echocardiogram EF = 50-55%. LVH. . TR Home med Lopressor 12.5 BID ??Hairline fx or bone bruise LEFT foot. (ankle motion boot) 10/20: Right foot x-ray -negative History of arthritis Consult podiatry for continued management and care Ankle motion boot ordered Supportive care Pain management PT and OT ordered WBAT LLE with left ankle boot - Attending Attestation The exam, history, and the medical decision-making described in the above note were completed with the assistance of the mid-level provider. I reviewed and agree with the findings presented. I attest that I had a [id number] encounter with the patient on the same day, and personally performed and documented my assessment and findings in the medical record. s/p fall, ?syncople neuro exam stable, VERA, GCS 15/A/Ox3 can DC home once cardiac and syncope w/u is completed
[2017-10-23] MEDS: Metoprolol Tartrate 25 MG Tablet PO SCH (09:34)
[2017-10-23] MEDS: Senna/Docusate Sodium 8.6/50 MG Tablet PO SCH (09:35)
--- NOTE | 2017-10-23 13:57 | P.DS ---
Date of admission: 10/18/17 16:27 Primary care physician: UNKNOWN Brief History from admission: Tripped and fell. DS: Diagnosis - Discharge Diagnosis (1) Subarachnoid hemorrhage Status: Acute (2) Mild neurocognitive disorder due to traumatic brain injury Status: Acute (3) Head injury due to trauma Status: Acute (4) Right foot injury Status: Acute (5) Sprain of tarsal ligament of right foot Status: Acute DS: Medications - Discharge Medications Prescriptions: acetaminophen [Tylenol] 650 mg PO Q6H PRN 14 Days #32 tab PRN Reason: pain or BING[place] oxycodone-acetaminophen 1 tab PO Q4-6H PRN 3 Days #18 tab PRN Reason: Pain DS: Summary Hospital Course: [place]: This is a 71-year-old female who sustained a fall. She tripped and fell striking her face. Positive LOC. GCS 15. She takes aspirin and Plavix at home. INJURIES: LEFT periorbital lac (sutures) LEFT frontotemporal SAH ??Hairline fx or bone bruise LEFT foot. (ankle motion boot) PMHx: CAD, CABG, HLD, GERD, Depression, HTN Consults: Neurosurgery. Cardiology. Podiatry. Neuropsych. Case management. The patient is now tolerating a po diet. Eating and drinking well. Pain is being managed well with PO pain medications, and patient is being a provided with a script for pain meds upon discharge. [This patient will be prescribed narcotic pain medications due to his traumatic injuries. The patient has a normal physiological response to severe traumatic injuries and surgery. He will need acute pain management with prescribed narcotic treatment. The [employer] prescription drug monitoring program database has been queried.] (NO driving while taking narcotic pain medication enforced to patient.) Pt is having regular bowel movements, and have recommended to patient to continue with stool softeners while taking narcotic pain medications to prevent constipation. Pt has been participating in PT and OT while admitted at [facility] and has been ambulating with their assistance and independently. No home PT needs All follow up appointments have been provided and discussed with the patient. It is recommended that the patient keeps all his follow up appointments for continued recovery. Patient's condition and plan of care discussed with collaborating trauma surgeon. He is agreeable to plan for discharge today. Therefore, the patient is stable to be safely discharged home from a trauma surgery standpoint. Thank you for allowing us to participate in her care. We wish Cat the best in her recovery. LEFT periorbital lac (sutures) LEFT frontotemporal SAH Neurosurgery consulted and assisting in management and care NS has cleared the pt for DC home Supportive care 10/19: CT brain -unchanged subarachnoid hemorrhage on the left. Serial neuro checks CT brain for any change in neurological status Pain management Encourage out of bed with assist PT and OT ordered Seizure precautions Seizure prophylaxis -Keppra p.o. Hold aspirin and Plavix in light of SAH Syncope Vital signs every 4 hours Cardiac monitoring Cardiology consulted and assisting in management care Possible vasovagal incident Carotid ultrasound - with no evidence of carotid stenosis. Echocardiogram EF = 50-55%. LVH. . TR Home med Lopressor 12.5 BID Follow up with cardiology outpatient ??Hairline fx or bone bruise LEFT foot. (ankle motion boot) 10/20: Right foot x-ray -negative History of arthritis Consult podiatry for continued management and care Ankle motion boot ordered Supportive care Pain management PT and OT ordered WBAT LLE with left ankle boot - Time Spent with Patient Total time spent providing and/or coordinating discharge services: - Quality: VTE Deep Vein Thrombosis/Pulmonary Embolism Present on Admission: No Exam Vital signs: Vital Signs 10/22/17 16:00 10/22/17 19:15 10/22/17 20:00 Temperature 97.8 F 99.0 F Pulse Rate 62 92 H 58 L Respiratory Rate 18 18 Blood Pressure 117/56 L 130/62 Pulse Oximetry 94 L 97 10/23/17 00:00 10/23/17 04:00 10/23/17 08:00 Temperature 99.3 F 99.3 F 98.3 F Pulse Rate 73 79 83 Respiratory Rate 18 18 20 Blood Pressure 131/69 130/72 188/86 H Pulse Oximetry 95 96 94 L Intake & Output 10/22/17 10/23/17 10/23/17 18:59 06:59 18:59 Intake Total 360 / 360 360 / 360 Output Total Balance 350 / 350 359 / 359 -15 / -15 Intake: Oral 360 / 360 360 / 360 Output: Urine / 8 5 / 5 Stool 2 / 2 Other: # Voids 2 Date of Last Bowel Movement 10/22/17 10/23/17 Narrative: GENERAL: This is a 71-year-old female sitting up in bed. No distress noted. SKIN: Warm and dry. Ecchymosis to left cheek and left chin. HEAD: Atraumatic. Normocephalic. EYES: PERRLA. Ecchymosis noted to left under eye. ENT: No nasal bleeding or discharge. Mucous membranes pink and moist. NECK: Trachea midline. No JVD. CARDIOVASCULAR: Regular rate and rhythm. RESPIRATORY: No accessory muscle use. Lungs are clear to auscultation. Breath sounds equal bilaterally. No distress or dyspnea. GASTROINTESTINAL: BS + x 4 quads. Abdomen soft, non-tender, nondistended. MUSCULOSKELETAL: Extremities without cyanosis, or edema. Right lower extremity elevated on a pillow with ankle motion boot on. + peripheral pulses x 4 extremities. Warm with good capillary refill and sensation. MAEW. NEUROLOGICAL: Awake and alert. Normal speech and pattern. Results Procedures completed during hospitalization: none - Impressions ITS Impressions Cervical Spine CT 10/18/17 15:07 CONCLUSION: 1. No acute bony abnormalities seen. 2. Degenerative change as described above. Face CT 10/18/17 15:07 CONCLUSION: 1. Left periorbital soft tissue swelling. 2. See the CT of the brain reported separately. 3. Carotid artery atherosclerotic calcification. Head CT 10/19/17 00:00 CONCLUSION: Persistent subarachnoid hemorrhage in the left frontal opercular region. This is unchanged. Foot X-Ray 10/20/17 00:00 CONCLUSION: No evidence of fracture. Carotid Doppler Study 10/22/17 00:00 CONCLUSION: No evidence of flow-limiting carotid stenosis. Discharge Plan - Discharge Disposition Patient Disposition: 01 Discharge Home - Discharge Condition Condition: Stable - Discharge Order Discharge Orders: Discharge Order (Routine); Ordered 10/23/17 Ordered By: Alice Figueroa - Physicians Team Primary Care Provider: UNKNOWN, Attending Provider: Dequan Bhakta Other Providers: Jean Pierre Dinero MD ; Regan Breen MD ; [employer] ; Dequan Bhakta MD ; Alice Figueroa ARNP ; Lennox Choi MD ; Jaycee Rodriguez MD ; Sophie Lujan MD ; Lisa Lubin ARNP ; Vamshi Witt, PhD ; Trev Hyde MD ; Alex Castellano, MJM ; Darius Moreland MD
== END 2017-10-23 15:56 | disposition home or self-care (01) ==
LOC: NEPC 14:55 → NEDA 16:27 → N03 20:56 → N05 10-20 16:25
PROVIDERS: ADMIT Surgery; ATTEND Surgery
DX: I10 Essential (primary) hypertension; R40.2412 Glasgow coma scale score 13-15, at arrival to emergency department; S06.6X9A Traumatic subarachnoid hemorrhage with loss of consciousness of unspecified duration, initial encounter; E78.5 Hyperlipidemia, unspecified; F32.9 Major depressive disorder, single episode, unspecified; S01.81XA Laceration without foreign body of other part of head, initial encounter; K21.9 Gastro-esophageal reflux disease without esophagitis; W17.89XA Other fall from one level to another, initial encounter; E78.00 Pure hypercholesterolemia, unspecified; I25.10 Atherosclerotic heart disease of native coronary artery without angina pectoris; Z87.891 Personal history of nicotine dependence; S93.611A Sprain of tarsal ligament of right foot, initial encounter